=== PATIENT | female | born 1960 | race Caucasian/White ===

== ENCOUNTER 2017-07-29 14:27 | Emergency (ER) | payer OTHER | END 2017-07-29 15:43 | disposition left against medical advice (07) | LOC: M ED 14:27 | DX: K08.89 Other specified disorders of teeth and supporting structures (principal); Z53.21 Procedure and treatment not carried out due to patient leaving prior to being seen by health care provider ==

== ENCOUNTER → 2018-02-15 | Outpatient (CLI) | payer OTHER ==
[~2018-02-15] MED LIST: ISOVUE-370 76% 100ML VIAL (Q9967) As Ordered
[2018-02-15 11:44] LABS: APPEARANCE, URINE CLEAR (CLEAR); BACTERIA, URINE AUTO NEGATIVE (NEGATIVE); BILIRUBIN, URINE AUTO NEGATIVE (NEGATIVE); BLOOD, URINE BLOOD NEGATIVE (NEGATIVE); COLOR, URINE YELLOW (YELLOW); GLUCOSE, URINE (UA) AUTO NEGATIVE (NEGATIVE); KETONE, URINE AUTO NEGATIVE (NEGATIVE); LEUKOCYTE ESTERASE, URINE AUTO NEGATIVE (NEGATIVE); NITRITE, URINE AUTO NEGATIVE (NEGATIVE); PROTEIN, URINE AUTO NEGATIVE (NEGATIVE); RBC, URINE AUTO 0 /HPF (0-3); SPECIFIC GRAVITY URINE AUTO 1.015 (1.002-1.035); SQUAMOUS EPITHELIAL CELL UR AU 0 /HPF (0-6); UROBILINOGEN, URINE AUTO 0.2 mg/dL (0.0-2.0); WBC, URINE AUTO 0 /HPF (0-3)
[2018-02-15 11:50] LABS: BASO % 0.5 % (0.0-1.0); EOS # 0.2 10^3/uL (0.0-0.50); EOS % 2.3 % (0.0-3.0); HEMATOCRIT 46.3 % (36.0-47.0); HEMOGLOBIN 15.1 g/dl (12.0-15.5); IMMATURE GRANULOCYTE % 0.4 % (0-3.0); LYMPH # 2.3 10^3/uL (1.5-4.5); LYMPH % 29.1 % (24.0-44.0); MEAN CORPUSCULAR HEMOGLOBIN 31.7 pg (27.0-33.0); MEAN CORPUSCULAR HGB CONC 32.6 g/dl (32.0-36.5); MEAN CORPUSCULAR VOLUME 97.1 fl (80.0-96.0); MONO # 0.7 10^3/uL (0.0-0.8); MONO % 8.4 % (0.0-5.0); NEUTROPHILS # 4.6 10^3/uL (1.8-7.7); NEUTROPHILS % 59.3 % (36.0-66.0); PLATELET COUNT, AUTOMATED 279 10^3/uL (150-450); RED BLOOD COUNT 4.77 10^6/uL (4.00-5.40); RED CELL DISTRIBUTION WIDTH 13.4 % (11.5-14.5); WHITE BLOOD COUNT 7.7 10^3/uL (4.0-10.0)
[2018-02-15 12:20] LABS: ALBUMIN 3.5 GM/DL (3.2-5.2); ALBUMIN/GLOBULIN RATIO 1.06 (1.00-1.93); ALKALINE PHOSPHATASE 78 U/L (45-117); ALT/SGPT 13 U/L (12-78); ANION GAP 6 MEQ/L (8-16); AST/SGOT 17 U/L (7-37); BILIRUBIN,TOTAL 0.3 MG/DL (0.2-1.0); BLOOD UREA NITROGEN 12 MG/DL (7-18); CALCIUM LEVEL 8.9 MG/DL (8.5-10.1); CARBON DIOXIDE LEVEL 30 MEQ/L (21-32); CHLORIDE LEVEL 106 MEQ/L (98-107); CHOLESTEROL LEVEL 233 MG/DL (<200); CHOLESTEROL RISK RATIO 3.819 (<5); CREATININE FOR GFR 0.78 MG/DL (0.55-1.30); FOLATE 13.3 NG/ML; FREE T4 0.81 NG/DL (0.76-1.46); GLOMERULAR FILTRATION RATE > 60.0 (>51); GLUCOSE, FASTING 79 MG/DL (70-100); HDL CHOLESTEROL 61 MG/DL (>40); LDL CHOLESTEROL 144 MG/DL (<100); NON-HDL-C 172 MG/DL; SODIUM LEVEL 142 MEQ/L (136-145); TOTAL PROTEIN 6.8 GM/DL (6.4-8.2); TRIGLYCERIDES LEVEL 138 MG/DL (<150)
== END ==
LOC: M RAD 10:06
DX: R91.1 Solitary pulmonary nodule (principal)
CPT/HCPCS: Q9967

== ENCOUNTER → 2018-02-23 | Outpatient (REF) | payer OTHER ==
[2018-02-23 14:10] LABS: FOLATE 10.9 NG/ML; RHEUMATOID FACTOR QUANT < 10.0 IU/ML (<15.0); VITAMIN B12 LEVEL 799 PG/ML
[2018-02-23 15:36] LABS: ERYTHROCYTE SEDIMENTATION RATE 8 mm/hr (0-30)
[2018-03-01 00:06] LABS: ANTINUCLEAR ANTIBODIES DIRECT Negative (Negative); VITAMIN B1 LEVEL WHOLE BLOOD 131.9 nmol/L (66.5-200.0); VITAMIN B6,PYRIDOXAL PHOSPHATE 7.6 ug/L (2.0-32.8); VITAMIN E(ALPHA TOCOPHEROL) 11.7 mg/L (7.0-25.1); VITAMIN E(GAMMA TOCOPHEROL) 1.9 mg/L (0.5-5.5)
== END ==
LOC: M LABNEURO 09:57
DX: R41.3 Other amnesia (principal)
CPT/HCPCS: 82746

== ENCOUNTER → 2018-02-23 | Outpatient (REF) | payer OTHER | LOC: M LAB REF 10:14 | DX: J43.9 Emphysema, unspecified (principal); R91.1 Solitary pulmonary nodule; J44.9 Chronic obstructive pulmonary disease, unspecified; F17.210 Nicotine dependence, cigarettes, uncomplicated; G31.84 Mild cognitive impairment of uncertain or unknown etiology ==

== ENCOUNTER → 2018-04-25 | Outpatient (REF) | payer OTHER ==
[~2018-04-25] MED LIST changes: +COMBAER6; +INCR1INH; -ISOVUE-370 76% 100ML VIAL (Q9967) As Ordered; +VENTAER
== END ==
LOC: M SFHCLERA 10:58
PROVIDERS: ATTEND Nurse Practitioner Family
DX: J02.9 Acute pharyngitis, unspecified (principal)

== ENCOUNTER → 2018-04-28 | Outpatient (CLI) | payer OTHER ==
--- NOTE | 2018-04-28 13:19 | REP ---
CAROTID DUPLEX ULTRASOUND: 04/28/2018. Clinical history: TIA. Findings: Standard duplex techniques utilized. There is some soft and mixed plaque in the right carotid bulb with some minor soft plaque and intimal thickening in the common and internal carotid as well as the external carotid. Similarly some soft plaque in the left external carotid with soft and mixed plaque at the bulb and into the left ICA. Peak velocity: CCA systolic: Right 1.0 M/S, left 0.83 M/S ICA systolic: Right 0.85 M/S left 1.10 M/S ICA diastolic: Right 0.42 M/S left 0.51 M/S ECA systolic: Right 0.87 M/S left 1.20 M/S ICA/CCA ratio: Right 0.42 left 0.62. There is cranial direction of flow in both vertebral arteries. No significant spectral broadening or filling in of the systolic window for either internal carotid artery. There is some irregular mixed plaque in the left bulb compared to the right bulb with less mixed plaque. Impression: 1. Bilateral mild carotid disease with mixed plaque bulb, left greater than right, but without hemodynamically significant or flow restricting lesion (less than 50% stenosis). 2. Cranial directional flow of the vertebral arteries bilaterally. Electronically Signed by Lino Pina MD 04/28/2018 04:57 P
== END ==
LOC: M RAD 09:31
PROVIDERS: ATTEND Psychiatry & Neurology Neurology
DX: G45.9 Transient cerebral ischemic attack, unspecified (principal)

== ENCOUNTER → 2018-05-05 | Outpatient (CLI) | payer OTHER ==
--- NOTE | 2018-05-05 13:27 | REPMRS ---
Patient History The patient states she had a clinical breast exam in 04/2018. Patient is postmenopausal. No known family history of cancer. Benign FNA biopsy of the right breast, November 04, 2008. Digital Woman Screen Mammo: May 05, 2018 - Exam #: [id number] Bilateral CC and MLO view(s) were taken. Technologist: Windy Carvalho, Technologist Prior study comparison: March 07, 2015, digital woman screen mammo performed at [facility]. January 11, 2014, digital woman screen mammo performed at [facility]. August 01, 2012, digital woman screen mammo performed at [facility] to [facility]. FINDINGS: There are scattered fibroglandular densities. There is a moderate amount of residual fibroglandular tissue which is fairly symmetric. There is no interval development of dominant mass, architectural distortion, or clustered microcalcification typical of malignancy. There has been no change in the appearance of the mammogram from the prior studies. 3-D tomosynthesis shows no additional findings. Assessment: BI-RADS/ACR category 1 mammogram. Negative. Recommendation Routine screening mammogram of both breasts in 1 year (for women over age 40). This patient's Lifetime Breast Cancer RIsk is estimated at 6.1 %. This mammogram was interpreted with the aid of an FDA-approved computer-aided dectection system. Electronically Signed By: Hood Walls MD 05/05/18 [id number]
== END ==
LOC: M WHC 09:43
PROVIDERS: ATTEND Nurse Practitioner Women's Health
DX: Z12.31 Encounter for screening mammogram for malignant neoplasm of breast (principal); Z78.0 Asymptomatic menopausal state; Z86.018 Personal history of other benign neoplasm

== ENCOUNTER → 2018-05-05 | Outpatient (REF) | payer OTHER ==
[2018-05-09 15:26] LABS: HPV HYBRID CAPTURE II Negative (Negative)
== END ==
LOC: M SFHCWAGY 09:44
PROVIDERS: ATTEND Nurse Practitioner Women's Health
DX: Z12.4 Encounter for screening for malignant neoplasm of cervix (principal)

== ENCOUNTER 2018-06-19 10:50 | Emergency (ER) | payer OTHER ==
[~2018-06-19] VITALS: Ht 175.3 cm; Wt 72.7 kg
[2018-06-19] MEDS ORDERED: NS 1,000 ML IV ONE (11:15)
[2018-06-19] MEDS ORDERED: ACETAMINOPHEN TAB 650MG DOSE (2X325MG) PO ONE (11:15)
[2018-06-19 11:34] LABS: BASO # 0.1 10^3/uL (0.0-0.2); BASO % 0.3 % (0.0-1.0); EOS % 0.2 % (0.0-3.0); HEMATOCRIT 37.7 % (36.0-47.0); HEMOGLOBIN 12.7 g/dl (12.0-15.5); LYMPH # 1.7 10^3/uL (1.5-4.5); LYMPH % 10.8 % (24.0-44.0); MEAN CORPUSCULAR HEMOGLOBIN 31.1 pg (27.0-33.0); MEAN CORPUSCULAR HGB CONC 33.7 g/dl (32.0-36.5); MEAN CORPUSCULAR VOLUME 92.2 fl (80.0-96.0); MONO # 1.2 10^3/uL (0.0-0.8); MONO % 7.8 % (0.0-5.0); NEUTROPHILS # 12.8 10^3/uL (1.8-7.7); NEUTROPHILS % 80.5 % (36.0-66.0); PLATELET COUNT, AUTOMATED 500 10^3/uL (150-450); RED BLOOD COUNT 4.09 10^6/uL (4.00-5.40); WHITE BLOOD COUNT 15.9 10^3/uL (4.0-10.0)
[2018-06-19] MEDS ORDERED: MOXIFLOXACIN HCL 400 MG in APPROPRIATE DILUENT 1 EA IV ONE (11:45)
[2018-06-19] MEDS ORDERED: methylPREDNISolone INJ 40 MG/1 ML VIAL (J2920) IV ONE (11:45)
--- NOTE | 2018-06-19 11:47 | REP ---
CHEST PORTABLE: AP portable view of the chest is performed and compared to a prior CT study of 02/15/2018. Peripheral consolidative infiltrate is seen in the left lung base. Right lung demonstrates no infiltrate. The heart is normal in size. There is calcification of the thoracic aorta. The mediastinal silhouette is unremarkable. IMPRESSION: Left basilar consolidative infiltrate. Electronically Signed by Albert Singer MD 06/19/2018 05:41 P
[2018-06-19 11:51] LABS: INFLUENZA A AMPLIFICATION NEGATIVE (NEGATIVE); INFLUENZA B AMPLIFICATION NEGATIVE (NEGATIVE)
[2018-06-19 12:10] LABS: BLOOD UREA NITROGEN 9 MG/DL (7-18); CALCIUM LEVEL 8.8 MG/DL (8.5-10.1); CARBON DIOXIDE LEVEL 28 MEQ/L (21-32); CHLORIDE LEVEL 98 MEQ/L (98-107); CK-MB VALUE MASS < 1.0 NG/ML (<3.6); CPK CREATINE PHOSPHOKINASE 31 U/L (26-192); CREATININE FOR GFR 0.75 MG/DL (0.55-1.30); GLOMERULAR FILTRATION RATE > 60.0 (>51); GLUCOSE, FASTING 172 MG/DL (70-100); MB/CK RELATIVE INDEX 3.23 (< OR =4); POTASSIUM SERUM 3.7 MEQ/L (3.5-5.1); SODIUM LEVEL 133 MEQ/L (136-145); TROPONIN I < 0.02 NG/ML (< 0.10)
[2018-06-19] MEDS ORDERED: PRED50TA PO (13:09)
[2018-06-19] MEDS ORDERED: MOXI1TAB PO (13:09)
[2018-06-19 14:16] VITALS: BP 107/72
--- NOTE | 2018-06-19 19:51 | ECGEPIP ---
Stationary ECG Study [facility] - ED Test Date: 2018-06-19 Pat Name: MARCY REGALADO Department: Room: - Gender: F Applied Exercise Physiologist: [email or web address] : 1960 Requested By: Vinay Soriano Order Number: [id number] Reading MD: Vinay Soriano Measurements Intervals Crescent Rate: 106 P: 78 GA: 126 QRS: 67 QRSD: 85 T: 76 QT: 314 QTc: 419 Interpretive Statements SINUS TACHYCARDIA MINIMAL VOLTAGE CRITERIA FOR LVH, CONSIDER NORMAL VARIANT ABNORMAL RHYTHM ECG NONSPECIFIC ST T WAVE CHANGES NO OLD ECG FOR COMPARISON Electronically Signed On 06-19-2018 19:51:21 EST by Vinay Soriano
== END 2018-06-19 14:22 | disposition home or self-care (01) ==
LOC: M ED 10:50
DX: J18.9 Pneumonia, unspecified organism (principal); J45.901 Unspecified asthma with (acute) exacerbation; R00.0 Tachycardia, unspecified; J44.9 Chronic obstructive pulmonary disease, unspecified; F17.210 Nicotine dependence, cigarettes, uncomplicated
CPT/HCPCS: 36415; 71045; 80048; 82550; 82553; 83605; 85025; 87502; 93005; 93041; 94760; 96374; 96375; 99285; J2280; J2920

== ENCOUNTER → 2018-08-07 | Outpatient (CLI) | payer OTHER ==
[~2018-08-07] MED LIST changes: +MOXI1TAB PO; +PRED50TA PO
--- NOTE | 2018-08-07 14:30 | REP ---
CHEST X-RAY: Three views. HISTORY: Recovering from pneumonia. Comparison study June 19, 2097. FINDINGS: There is some residual consolidation in the left lower lobe, much improved when compared with the June 19, 2018 study although not completely resolved. No new infiltrate is seen. The lungs are hyperinflated. Pleural angles are sharp. Heart size is normal. The aorta is calcific. IMPRESSION: Significantly improved although not resolved left upper lobe infiltrate. COPD. Electronically Signed by Ozzie Walls MD 08/07/2018 03:17 P
== END ==
LOC: M LRY 10:26
PROVIDERS: ATTEND Physician Assistant
DX: R04.2 Hemoptysis (principal)

== ENCOUNTER 2018-08-29 08:37 | Emergency (ER) | payer OTHER ==
[~2018-08-29] VITALS: Ht 175.3 cm; Wt 75.0 kg
--- NOTE | 2018-08-29 09:34 | REP ---
Chest two views HISTORY: Cough Comparison: 08/07/2018 Patchy density is present in the left lower lobe consistent with an infiltrate that is decreased compared to the previous study. The right lung is clear. The heart is normal in size. The pulmonary vasculature is normal in appearance. The bony structure is intact. IMPRESSION: Left lower lobe infiltrate decreased compared to the previous study. Electronically Signed by Leo Roldan MD 08/29/2018 09:25 A
[2018-08-29] MEDS ORDERED: IPRATROPIUM 0.5MG/ALBUTEROL 2.5MG INH SOL UD 3ML (DUONEB)(J7620) NEB ONE (10:45)
[2018-08-29] MEDS ORDERED: methylPREDNISolone INJ 125 MG/2 ML VIAL (J2930) IV ONE (10:45)
[2018-08-29] MEDS ORDERED: NS 1,000 ML IV ONE (10:45)
[2018-08-29 11:02] LABS: BASO % 0.3 % (0.0-1.0); EOS % 0.4 % (0.0-3.0); HEMATOCRIT 46.6 % (36.0-47.0); HEMOGLOBIN 15.5 g/dl (12.0-15.5); LYMPH # 2.3 10^3/uL (1.5-4.5); LYMPH % 21.1 % (24.0-44.0); MEAN CORPUSCULAR HEMOGLOBIN 31.1 pg (27.0-33.0); MEAN CORPUSCULAR HGB CONC 33.3 g/dl (32.0-36.5); MEAN CORPUSCULAR VOLUME 93.6 fl (80.0-96.0); MONO # 1.2 10^3/uL (0.0-0.8); MONO % 11.4 % (0.0-5.0); NEUTROPHILS # 7.3 10^3/uL (1.8-7.7); NEUTROPHILS % 66.5 % (36.0-66.0); PLATELET COUNT, AUTOMATED 309 10^3/uL (150-450); RED BLOOD COUNT 4.98 10^6/uL (4.00-5.40); WHITE BLOOD COUNT 10.9 10^3/uL (4.0-10.0)
--- NOTE | 2018-08-29 11:46 | REP ---
CT chest without contrast: History: Persistent pneumonia. Comparison chest CT study February 15, 2018. Comparison low-dose chest CT February 22, [address] November 19, 2015 are also reviewed. Comparison is made with today's chest x-ray. CT findings: There is some residual subsegmental discoid atelectasis in the anterior basal segment of the left lower lobe. There is soft tissue fullness in the left inferior hilus and there is segmental bronchial occlusion associated with this nodular opacity in the infrahilar region. This measures 2.6 cm in greatest diameter. A neoplastic nodule must be suspected here in the left inferior hilus. There is a 6 mm pulmonary nodule in the left lower lobe lateral to this on page 60 of 116 in series 201 of today's study. These are new findings. No other pulmonary nodule is appreciated. There are mild emphysematous changes in the lung apices unchanged. There are new lymph nodes in the mediastinum just above the left mainstem bronchus and in the left precarinal region. These each measure 1.3 cm in greatest diameter. They were not present previously. There is a normal sized AP window region lymph node only 5 mm in short axis dimension. No adrenal lesion is seen. Visualized upper abdominal structures are unremarkable. No bony destructive lesion is seen. Impression: Findings suspicious for a 2.6 cm primary bronchogenic lung malignancy in the left infrahilar region with bronchial obstruction and gradually resolving post obstructive pneumonia. There are two suspicious new lymph nodes in the mediastinum at the level of the christopher. There is a 6 mm pulmonary nodule in the left lower lobe as well. Consider PET/CT scanning and histologic sampling. Electronically Signed by Ozzie Walls MD 08/29/2018 05:22 P
[2018-08-29 11:57] LABS: ALBUMIN 4.1 GM/DL (3.2-5.2); ALT/SGPT 14 U/L (12-78); BILIRUBIN,DIRECT 0.2 MG/DL (0.0-0.2); BILIRUBIN,TOTAL 0.6 MG/DL (0.2-1.0); BLOOD UREA NITROGEN 13 MG/DL (7-18); CALCIUM LEVEL 9.9 MG/DL (8.5-10.1); CARBON DIOXIDE LEVEL 30 MEQ/L (21-32); CHLORIDE LEVEL 100 MEQ/L (98-107); GLOMERULAR FILTRATION RATE > 60.0 (>51); GLUCOSE, FASTING 73 MG/DL (70-100); POTASSIUM SERUM 4.4 MEQ/L (3.5-5.1); SODIUM LEVEL 135 MEQ/L (136-145); TOTAL PROTEIN 7.5 GM/DL (6.4-8.2)
[2018-08-29] MEDS ORDERED: LEVA750T7 PO (12:35)
[2018-08-29 12:55] VITALS: BP 140/97
[2018-09-01] MEDS ORDERED: PRED10TA2 PO (14:58)
[2018-09-01] MEDS ORDERED: ANOR1AER INH (14:58)
[2018-09-01] MEDS ORDERED: MOTR200T44 PO (14:58)
== END 2018-08-29 12:57 | disposition home or self-care (01) ==
LOC: M ED 08:37
DX: J18.1 Lobar pneumonia, unspecified organism (principal); R91.1 Solitary pulmonary nodule; J98.09 Other diseases of bronchus, not elsewhere classified; J44.9 Chronic obstructive pulmonary disease, unspecified; B19.20 Unspecified viral hepatitis C without hepatic coma; Z79.899 Other long term (current) drug therapy; F17.210 Nicotine dependence, cigarettes, uncomplicated
CPT/HCPCS: 36415; 71046; 71250; 80048; 80076; 83605; 85025; 87070; 87205; 94640; 96361; 96374; 99284; J2930

== ENCOUNTER 2018-09-07 07:46 | Day surgery (SDC) | payer OTHER ==
[~2018-09-07] VITALS: Ht 176.5 cm; Wt 74.8 kg
[~2018-09-07 07:46] MED LIST changes: +ANOR1AER INH; +LEVA750T7 PO; +LR 1,000 ML IV SCH; +MOTR200T44 PO; +PRED10TA2 PO
[2018-09-07] MEDS ORDERED: LIDOCAINE 1% SDV INJ 30 ML VIAL As Ordered ONE (09:08)
[2018-09-07] MEDS ORDERED: LIDOCAINE VISCOUS 2% SOLN 15ML UDC As Ordered ONE (09:08)
[2018-09-07] MEDS ORDERED: THROMBIN SOLN 20,000 UNITS KIT As Ordered ONE (09:08)
[2018-09-07] MEDS ORDERED: EPINEPHrine 1MG/ML INJ 30ML MD-VIAL As Ordered ONE (09:09)
[2018-09-07] MEDS ORDERED: THROMBIN SOLN 5,000 UNITS VIAL As Ordered ONE (09:12)
[2018-09-07] MEDS ORDERED: CETACAINE SPRAY 5GM As Ordered ONE (09:18)
[2018-09-07] MEDS ORDERED: SUGAMMADEX SODIUM 500 MG/5 ML VIAL (BRIDION) As Ordered ONE (09:50)
[2018-09-07] MEDS ORDERED: PROPOFOL 200 MG/20 ML VIAL As Ordered ONE (09:50)
[2018-09-07] MEDS ORDERED: fentaNYL 100 MCG/2 ML INJECTION (J3010) As Ordered ONE (09:50)
[2018-09-07] MEDS ORDERED: LIDOCAINE 2% INJ 100 MG/5 ML SDV (FOR ANES.) As Ordered ONE (09:50)
[2018-09-07] MEDS ORDERED: ONDANSETRON 4MG/2ML VIAL (J2405) As Ordered ONE (09:50)
[2018-09-07] MEDS ORDERED: dexameTHASONE 4 MG/ML 1ML VIAL (J1100) As Ordered ONE (09:50)
[2018-09-07] MEDS ORDERED: ROCURONIUM BROMIDE 50 MG/5 ML VIAL As Ordered ONE (09:50)
[2018-09-07] MEDS ORDERED: PHENYLephrine HCL 500 MCG/5 ML (100MCG/ML) SYRINGE (J2370) As Ordered ONE (09:50)
[2018-09-07] MEDS ORDERED: MIDAZOLAM INJ 2 MG/2 ML VIAL (J2250) As Ordered ONE (09:50)
[2018-09-07] MEDS ORDERED: IPRATROPIUM 0.5MG/ALBUTEROL 2.5MG INH SOL UD 3ML (DUONEB)(J7620) As Ordered ONE (10:41)
--- NOTE | 2018-09-07 10:57 | REP ---
Clinical: Dyspnea. Rule out pneumonia . Comparison: 08/29/2018 . Findings: The mediastinum and cardiac silhouette are stable and within normal limits for portable technique. The lung mora are clear without acute consolidation, effusion, or pneumothorax. Skeletal structures are intact. Impression: No acute cardiopulmonary process appreciated. Electronically Signed by Toi Oleary MD 09/07/2018 10:46 A
[2018-09-07] MEDS ORDERED: PERCOCET 5MG/325MG TAB PO PRN (11:00)
[2018-09-07] MEDS ORDERED: ONDANSETRON 4MG/2ML VIAL (J2405) IV PRN (11:00)
[2018-09-07] MEDS ORDERED: LR 1,000 ML IV SCH (11:00)
[2018-09-07] MEDS ORDERED: IPRATROPIUM 0.5MG/ALBUTEROL 2.5MG INH SOL UD 3ML (DUONEB)(J7620) INH ONE (11:00)
[2018-09-07] MEDS ORDERED: fentaNYL 100 MCG/2 ML INJECTION (J3010) IV PRN (11:00)
[2018-09-07] MEDS ORDERED: guaiFENesin DM LIQ 10ML UD PO ONE (11:00)
--- NOTE | 2018-09-07 11:21 | ROOR ---
Patient Name: Serina Smith Procedure Date: 09/07/2018 9:21 AM Date of : 1960 Admit Type: Outpatient Age: 58 Room: Main OR Note Status: Finalized Attending MD: Sandra Montemayor MD Procedure: Bronchoscopy Indications: Abnormal CT scan of chest, Mediastinal adenopathy, Paratracheal adenopathy Providers: Sandra Montemayor MD (Doctor) Referring MD: Sang Edwards DO (Referring MD) Requesting Physician: Medicines: General Anesthesia, Cetacaine topical Complications: No immediate complications. Estimated blood loss: Minimal Procedure: Pre-Anesthesia Assessment: - Prior to the procedure, a History and Physical was performed, and patient medications and allergies were reviewed. The patient's tolerance of previous anesthesia was also reviewed. The risks and benefits of the procedure and the sedation options and risks were discussed with the patient. All questions were answered, and informed consent was obtained. Prior Anticoagulants: The patient has taken no previous anticoagulant or antiplatelet agents. ASA Grade Assessment: III - A patient with severe systemic disease. After reviewing the risks and benefits, the patient was deemed in satisfactory condition to undergo the procedure. The Bronchoscope was introduced through the mouth, via the endotracheal tube (the patient was intubated for the procedure) and advanced to the tracheobronchial tree of both lungs. The procedure was accomplished without difficulty. The patient tolerated the procedure well. Findings: Respiratory tract: The trachea is of normal caliber. The christopher is sharp. The entire tracheobronchial tree was examined to at least the first subsegmental level. Bronchial mucosa and anatomy are normal; there was some scant yellow mucous in left bronchial tree. There were no endobronchial lesions or secretions in right bronchial tree. There were pedraza vascular endobronchial lesions occluding the anterior medial segment of the left lower lobe and in the lateral basal segment of the left lower lobe. These lesions were friable. Washings were obtained in the left lower lobe and sent for cell count, bacterial culture, and fungal & AFB analysis and cytology. The return was blood-tinged. Brushings of an endobronchial lesion were obtained in the anterior medial segment of the left lower lobe with a cytology brush and sent for routine cytology. Endobronchial biopsies of the lesions were performed in the anterior medial segment and lateral basal segment of the left lower lobe using a forceps and sent for routine cytology. An endobronchial ultrasound endoscope was utilized in order to assist with fine needle aspiration in the subcarinal area. Transbronchial needle aspirations of a lymph node were performed in the subcarinal area using an Olympus EBUS-TBNA 21 gauge needle and sent for routine cytology. The procedure was guided by ultrasound. Endobronchial ultrasound survellaince did not show any right hilar lymphadenopathy. The right paratracheal (4R) lymph nodes were visualized, they were not enlarged and one had fat containing benign appearance. The left paratracheal (4L) lymph node was visualized and significantly enlarged, however it was not sampled as there was adequate specimen by cytopathologist KOSTA for the subcarinal lymph node. Estimated blood loss: minimal. Impression: - Abnormal CT scan of chest - Mediastinal adenopathy - Paratracheal adenopathy - Washings were obtained. - Brushings were obtained. - An endobronchial biopsy was performed. - Endobronchial ultrasound was performed. - A transbronchial needle aspiration was performed. Recommendation: - Await test results. - Follow up with bronchoscopist as previously scheduled. Attending Participation: I personally performed the entire procedure. Sandra Montemayor MD 09/07/2018 11:21:12 AM Number of Addenda: 0 Note Initiated On: 09/07/2018 9:21 AM
[2018-09-07 12:02] VITALS: BP 129/71
== END 2018-09-07 12:29 | disposition home or self-care (01) ==
LOC: M SDC 07:46
PROVIDERS: ATTEND Internal Medicine Pulmonary Disease
DX: C34.32 Malignant neoplasm of lower lobe, left bronchus or lung (principal); C77.1 Secondary and unspecified malignant neoplasm of intrathoracic lymph nodes; R59.0 Localized enlarged lymph nodes; F17.210 Nicotine dependence, cigarettes, uncomplicated; J34.2 Deviated nasal septum; B18.2 Chronic viral hepatitis C; Z79.82 Long term (current) use of aspirin; Z79.51 Long term (current) use of inhaled steroids; Z79.899 Other long term (current) drug therapy
CPT/HCPCS: 31623; 31629; 31652; 71045; 87070; 87205; 88104; 88173; 88305; 88313; J1100; J2250; J2370; J2405; J3010

== ENCOUNTER → 2018-09-19 | Outpatient (CLI) | payer OTHER ==
[~2018-09-19] MED LIST changes: +ACET-683 PO; +ALBU83IN NEB; -LR 1,000 ML IV SCH; +VENTAER INH
--- NOTE | 2018-09-19 13:50 | RADONC ---
RADIATION ONCOLOGY NEW PATIENT CONSULTATION DATE: 09/19/2018 DIAGNOSIS: Extensive small cell carcinoma, left lower lobe with mediastinal involvement and a small satellite nodule in the left lower lung. STAGE: Presumably stage [id number] (extensive). Group IIIB ICD-10 CODE: C 34.92. ECOG PERFORMANCE: 0. CHART NUMBER: [id number] HISTORY OF PRESENT ILLNESS: The patient is a very nice 58-year-old female who, since June this year, started complaining of an increased cough associated with some fevers and chills. The patient had a great deal of mucus and underwent a chest x-ray, which revealed an opacity in the left lower lung. Her sputum samples consisted of primarily leukocytes and were consistent with a clinical diagnosis of pneumonia. She was treated with antibiotics for several weeks, as well as steroids and had significant improvement of symptoms until July of this year. She was admitted again for symptoms resembling that of pneumonia and was initiated on a different antibiotic, Dicloxacillin with a transient significant improvement of her symptoms. When her symptoms nonetheless had returned in August of this year, the patient underwent further diagnostic evaluations, including a CT scan. The CT scan confirmed the presence of a left lower lobe mass and within this study a 2.6 cm left infrahilar region was noted with some bronchial obstruction. The findings were consistent with a primary bronchogenic carcinoma with two new suspicious lymph nodes within the mediastinum at the level of the christopher. There was a 6 mm pulmonary nodule in the left lower lobe as well. These findings were consistent with dissemination of a primary lung cancer. On September 07, the patient was taken for bronchoscopy and biopsy. Brushings of an endobronchial lesion were obtained in the anterior segment of the left lower lobe. The transbronchial needle aspiration revealed cells consistent with small cell carcinoma. The bronchial portions also revealed tumor consistent with a small cell carcinoma. In light of these findings, the patient was referred to both medical oncology and to radiation oncology. She has already seen Dr. Christine Priest, who has ordered a CT scan for the patient, as well as some additional scans, and she comes to us today to discuss the eventual probable role of radiation in the management of her cancer. PAST MEDICAL HEALTH: She has a history of emphysema, which has been documented. She also has a history of hepatitis C, alcohol dependence, tobacco dependence, lumbar spine surgery, appendectomy, LEEP surgery, D and C. CURRENT MEDICATIONS: - nicotine patch - albuterol 25 mg per 3 mL q.i.d. ALLERGIES: NO KNOWN DRUG ALLERGIES. SMOKING HISTORY: She has a history of smoking 1.5 packs per day for the last 40 years and she continues to smoke. FAMILY HISTORY: Cancer in maternal grandmother with colon cancer and grandfather with lung cancer. 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 LABORATORY DATA AND X-RAY FINDINGS: CT scan obtained reveals atelectasis in the left lower lung with an area of consolidation and left inferior hilar fullness. There was segmental bronchial occlusion and a new 6 mm nodule in the left lower lung. Also two additional lymph nodes were seen in the mediastinum at the level of the hilum. REVIEW OF SYSTEMS: The patient denies any nausea, vomiting but has experienced some weight loss and feels fatigue. She has difficulty catching her breath at times even with moderate exertion. The patient denies chronic headaches, nausea, vomiting, orbital pain, tinnitus, throat pain, difficulty swallowing or pain upon swallowing. PULMONARY: She is quite short of breath with modest exertion. She has a history of coughing and of a lesion in her left lung, which resulted in obstructive pneumonias. She has a longer history of smoking with subsequent emphysema and has symptoms secondary to her emphysema. CARDIOVASCULAR: Denies palpitations, rhythmic irregularities, chest pain. She experiences some dyspnea on exertion, most likely secondary to her emphysema. She also experiences general fatigue and occasional minor chest pain. She has had two episodes of hemoptysis most recently. ABDOMINAL: Denies general abdominal pain. She has a fair to good appetite and eats three flynn meals per day. She denies nausea, vomiting, jaundice, abdominal distension, ascites. GYNECOLOGIC: She denies any pelvic pain, dysfunctional uterine bleeding, vaginal discharge. EXTREMITIES: Denies cyanosis, clubbing or edema. NEUROLOGIC EXAMINATION: Denies significant depression, although she does claim that she is having a difficult time coping with the recent diagnosis. She denies suicidal thoughts. EXAMINATION FINDINGS: Vitals: Weight 163, height 5 feet 6 inches, respirations 20, pulse 82, temperature 98.7, BP 150/90, O2 saturation 98%. HEENT: Normocephalic. EOMs intact. PERRLA. Fundi benign. Lymphatics: No palpable peripheral lymphadenopathy is appreciated in the cervical, supraclavicular, axillary or inguinal lymph node chains. Lungs: Distant to auscultation to absent in the left lower lung. Hyperresonant to percussion. Heart: Regular without murmurs. Abdomen: Without evidence of hepatomegaly, masses, deep abdominal tenderness. Extremities: Without cyanosis, clubbing or edema. Neurologic: Examination physiologic and nonfocal. IMPRESSION: Clinically extensive small cell carcinoma of the lung [id number]. PLAN OF RADIOTHERAPY: Dr. Priest has already ordered a PET scan for the patient, and the patient can be appropriately staged after completion and evaluation of her scan results. Plan of radiotherapy, most likely the patient will benefit from adjuvant radiotherapy along with chemotherapy. We would recommend a local regional radiotherapy to the tumor primary and lymphatic drainage sites. Prior to treatment delivery, localization will be accomplished upon our CT simulator and treatment portals defined by the use of multiple leaf collimators. Indications, possible side effects, as well as alternatives to radiotherapy have been explained in detail to the patient. She understands and is willing to proceed with the outlined treatment plan above. Thank you for referring this very jeannette lady to us and allowing us the opportunity of participation in her overall management. cc: MD Ben Forrester MD MTDD
== END ==
LOC: M ONCR 08:39
PROVIDERS: ATTEND Radiology Radiation Oncology
DX: C34.90 Malignant neoplasm of unspecified part of unspecified bronchus or lung (principal)

== ENCOUNTER → 2018-09-27 | Outpatient (CLI) | payer OTHER ==
[~2018-09-27] MED LIST changes: +ATIV1TAB7 PO; +TRAM50TA2 PO
--- NOTE | 2018-09-27 18:20 | REP ---
PET/CT: History: Staging small cell lung carcinoma. Comparisons: Comparison CT scan is from August 29, 2018. TECHNIQUE: 50 minutes following the intravenous injection of a 9.33 mCi dose of F-18 FDG, three-dimensional PET scintigraphy is acquired from the skull base to the proximal thighs. Triplanar noncontrast CT scanning is acquired through the same anatomic range for attenuation correction, and image registration with scan parameters optimized to minimize radiation exposure to the patient. PET scintigraphy and CT datasets were fused and displayed on a workstation with multiplanar and projection display capability. PET/CT Findings: There is hypermetabolic uptake in the known left infrahilar pulmonary nodule. Maximum standard uptake value within this is 9.16. There is hypermetabolic jose c uptake in the left inferior hilus, left superior hilus, subcarinal lymph node chain, left salma-carinal lymph nodes, and in a small paraesophageal lymph node at the level of the transverse aorta. Maximum standard uptake value in this jose c uptake pattern ranges between 4.15 and 10.53. No abnormal adrenal uptake is seen. Head and neck soft tissues are unremarkable. No abnormal abdominal or pelvic hypermetabolic uptake is appreciated. Impression: There is hypermetabolic uptake in the left lower lobe, left hilus, and in multiple areas in the mediastinum. Electronically Signed by Ozzie Walls MD 09/27/2018 08:43 P
== END ==
LOC: M PLARAD 14:32
PROVIDERS: ATTEND Internal Medicine Medical Oncology
DX: C34.32 Malignant neoplasm of lower lobe, left bronchus or lung (principal)
CPT/HCPCS: 78815; A9552

== ENCOUNTER → 2018-09-29 | Outpatient (CLI) | payer OTHER ==
[~2018-09-29] MED LIST changes: +BUPIVACAINE HCL 0.5% 10 ML VIAL As Ordered ONE; +DEXA4TA PO; +LIDO2.5C15 TOP; +LIDOCAINE 2% MDV 20 ML VIAL As Ordered ONE; +MIDAZOLAM INJ 2 MG/2 ML VIAL (J2250) As Ordered ONE; +OLAN10TA2 PO; +ONDA8TAB7 PO; +PROC10TA4 PO; +ceFAZolin 1GM INJ (J0690 PER 500MG) As Ordered ONE; +fentaNYL 100 MCG/2 ML INJECTION (J3010) As Ordered ONE
--- NOTE | 2018-10-25 14:52 | REPIR ---
DATE OF PROCEDURE: 09/29/2018 ATTENDING SURGEON: Dr. Joselyn Verdin LOGGING SUPERINTENDENT: Karin Olivera and Gretchen Padilla PREOPERATIVE DIAGNOSES: Lung cancer, hepatitis C, alcohol abuse, tobacco use. POSTOPERATIVE DIAGNOSES: Lung cancer, hepatitis C, alcohol abuse, tobacco use. PROCEDURE: Ultrasound fluoroscopic guided 26.5 cm tunneled central venous catheter with subcutaneous port using a Bard PowerPort INDICATION: The patient is a 58-year-old female who requires access for chemotherapy and will undergo placement of a Port-A-Cath. ANESTHESIA: Local with 20 mL of 2% lidocaine mixed 0.5% Marcaine. FLUORO TIME: 0.2 minutes. CONTRAST: None. COMPLICATIONS: None. DRAINS: None. SPECIMENS: None. PROCEDURE The patient was taken to the angiography suite, placed supine on the angiography table and then prepped and draped in a standard surgical fashion. Ultrasound was used to guide cannulation of the right internal jugular vein. The port was placed in a pocket in the right chest and the catheter was tunneled in place with the tip in the superior vena cava right atrial junction. The port was aspirated and noted to aspirate easily and then flushed heparinized saline. The incisions were closed using 3-0 Monocryl in inverted interrupted fashion. Steri-Strips and dressings were applied. The patient tolerated the procedure well. All instrument, sponge and needle counts were correct at the end of the case. There were no complications. Dr. Verdin was present for and directed the entire case. The patient was transferred to the holding area and subsequently discharged in stable condition.
== END ==
LOC: M IRPRO 11:44
PROVIDERS: ATTEND Internal Medicine Medical Oncology
DX: C34.32 Malignant neoplasm of lower lobe, left bronchus or lung (principal); B18.2 Chronic viral hepatitis C; J34.2 Deviated nasal septum; F10.20 Alcohol dependence, uncomplicated; F17.218 Nicotine dependence, cigarettes, with other nicotine-induced disorders
CPT/HCPCS: 36563; 76937; C1788; C1894; J0690

== ENCOUNTER → 2018-10-02 | Outpatient (CLI) | payer OTHER ==
[~2018-10-02] MED LIST changes: -BUPIVACAINE HCL 0.5% 10 ML VIAL As Ordered ONE; -DEXA4TA PO; -LIDO2.5C15 TOP; -LIDOCAINE 2% MDV 20 ML VIAL As Ordered ONE; -MIDAZOLAM INJ 2 MG/2 ML VIAL (J2250) As Ordered ONE; -OLAN10TA2 PO; -ONDA8TAB7 PO; -PROC10TA4 PO; +PROHANCE 279.3MG/ML 15ML VIAL (A9576) As Ordered ONE; -ceFAZolin 1GM INJ (J0690 PER 500MG) As Ordered ONE; -fentaNYL 100 MCG/2 ML INJECTION (J3010) As Ordered ONE
--- NOTE | 2018-10-03 08:39 | REP ---
MRI brain without contrast followed by with contrast: History: Recent diagnosis small cell lung carcinoma. No comparison brain imaging. Comparison PET CT study September 27, 2018. Technique: Axial and sagittal imaging planes are utilized for T1 and T2-weighted scans. Sequences include spin-echo, fast spin echo, FLAIR, and diffusion weighted sequences. Gadolinium enhancement dose is 14 ml of intravenous ProHance. MRI findings: No bony calvarial lesion is appreciated. There is no MR evidence of significant paranasal sinus disease. No intraorbital abnormality is seen. Craniocervical junction and upper cervical cord are normal in appearance. Diffusion weighted scans show no evidence of restricted diffusion to suggest acute ischemia. FLAIR and turbo spin echo T2-weighted scans demonstrate multiple areas of subcortical and periventricular T2 hyperintensity in the frontal and parietal lobes and occipital lobes bilaterally consistent with small vessel atherosclerotic changes. There is no evidence of intracranial mass lesion. No infarct or hemorrhage is seen. Postcontrast images demonstrate enhancement in normal vessels. No abnormal gadolinium enhancement is appreciated. Impression: Small vessel changes. There is no evidence to suggest intracranial metastatic disease. Electronically Signed by Ozzie Walls MD 10/03/2018 12:15 P
== END ==
LOC: M RAD 16:52
PROVIDERS: ATTEND Internal Medicine Medical Oncology
DX: C34.90 Malignant neoplasm of unspecified part of unspecified bronchus or lung (principal)
CPT/HCPCS: 70553; A9576

== ENCOUNTER 2018-10-13 11:00 | Outpatient (RCR) | payer OTHER ==
--- NOTE | 2018-09-24 10:52 | RADONC ---
RADIATION ONCOLOGY SIMULATION NOTE: DATE: 09/22/2018 CHART NUMBER: [id number]. DIAGNOSIS: Small cell carcinoma of the lung. STAGE: Extensive. ECOG PERFORMANCE STATUS: 0 SIMULATION NOTE: The patient was brought into the simulation room where upon an immobilization device was fabricated for day-to-day treatment accuracy. She tolerated the immobilization device quite well with no significant untoward side effects. Thereafter, images were collected at [address] simulator. These images were taken through the entire thorax and will be used for future contouring of both the tumor volume as well as the immediate surrounding critical adjacent structures. I was there during the entire course of the simulation. The simulation process was tolerated quite well by the patient with no untoward events. cc: Christine Priest MD
--- NOTE | 2018-10-03 10:17 | RADONC ---
RADIATION ONCOLOGY PROGRESS NOTE DATE: 10/02/2018 CHART NUMBER: [id number] Ms. Smith was initially seen by Dr. Veliz and consultation was done following her CT scan but before her PET scan was undertaken. At the time of consultation, due to a pulmonary nodule, Dr. Veliz staged her as having an extensive stage small-cell lung carcinoma. When I returned; however, the PET scan had been completed and the small nodule, although quite small to leaf size picker hypermetabolic activity, was not hypermetabolic. Although this does not rule out the possibility of disease there, I have staged her as having a limited stage small-cell lung carcinoma giving her the benefit of doubt on this issue. The PET scan showed hypermetabolic uptake throughout the mediastinum and hilar regions but not in that nodule. Therefore, all disease could be incorporated easily within a radiation field and I am treating her as a patient with limited stage small-cell lung carcinoma.
--- NOTE | 2018-10-10 12:54 | RADONC ---
RADIATION ONCOLOGY PROGRESS NOTE DATE: 10/09/2018 CHART NUMBER: [id number] Ms. Smith, with a diagnosis of lung cancer, is currently receiving local regional radiotherapy, and she has achieved a dose thus far of 540 cGy of an anticipated 4000 cGy to the involved lung area. She seems to be tolerating her radiotherapy reasonably well. REVIEW OF SYSTEMS: She specifically denies any nausea, vomiting, coughing, sputum production or hemoptysis. Her energy level is such that she is able to maintain most of her day-to-day activities, but the use of concomitant chemotherapy and radiotherapy is very fatiguing to her. Skin irritation is denied. EXAMINATION FINDINGS The patient's skin within the irradiated volume shows no evidence of erythema and certainly no focal desquamation. Lymphatics: No palpable peripheral lymphadenopathy is appreciated. Lungs are distant bilaterally and hyperresonant to percussion. The remainder of the physical examination is unchanged. IMPRESSION: Tolerating therapy well. PLAN: Treatments to continue.
[~2018-10-13 11:00] MED LIST changes: +DEXA4TA PO; +LIDO2.5C15 TOP; +OLAN10TA2 PO; +ONDA8TAB7 PO; +PROC10TA4 PO; -PROHANCE 279.3MG/ML 15ML VIAL (A9576) As Ordered ONE
== END 2018-10-15 ==
LOC: M ONCR 11:00
PROVIDERS: ATTEND Radiology Radiation Oncology
DX: C34.32 Malignant neoplasm of lower lobe, left bronchus or lung (principal)

== ENCOUNTER 2018-11-13 08:56 | Emergency (ER) | payer OTHER ==
[~2018-11-13] VITALS: Ht 177.8 cm; Wt 71.4 kg
[2018-11-13] MEDS ORDERED: BENA2CRE3 TOP (09:50)
[2018-11-13] MEDS ORDERED: KEFL500C17 PO (09:50)
[2018-11-13 09:52] VITALS: BP 123/71
== END 2018-11-13 09:55 | disposition home or self-care (01) ==
LOC: M ED 08:56
DX: L73.9 Follicular disorder, unspecified (principal); J44.9 Chronic obstructive pulmonary disease, unspecified; B19.20 Unspecified viral hepatitis C without hepatic coma; Z79.899 Other long term (current) drug therapy; F17.210 Nicotine dependence, cigarettes, uncomplicated

== ENCOUNTER → 2018-11-15 | Outpatient (RCR) | payer OTHER ==
--- NOTE | 2018-10-16 16:41 | RADONC ---
RADIATION ONCOLOGY PROGRESS NOTE DATE OF SERVICE: 10/16/2018 CHART NUMBER: [id number] Ms. Smith with a diagnosis of a lung cancer is currently receiving local regional radiotherapy and her dose to date is 1440 cGy of a total dose of 3780 cGy. Thus far, she is tolerating her treatments relatively well with no specific complaints referable to her disease or to her treatments. She will be considered for boost after the completion of the aforementioned prescribed dose. REVIEW OF SYSTEMS: She denies any nausea, vomiting, coughing, sputum production or hemoptysis. Her energy level is diminished and she is able to still maintain many day-to-day activities without any alteration of her lifestyle. Skin irritation is not a major issue for her. She also denies odynophagia, dysphagia. EXAMINATION FINDINGS: Skin within the irradiated volume shows only a minimal erythematous blush with no focal desquamation. There is no palpable peripheral lymphadenopathy. Lungs are clear but distant. The remainder of the physical examination is unchanged. IMPRESSION: Tolerating therapy well. PLAN: Treatments to continue. MTDD
--- NOTE | 2018-10-23 11:59 | RADONC ---
RADIATION ONCOLOGY PROGRESS NOTE DATE: 10/23/2018 CHART NUMBER: [id number] Ms. Smith is a very is presently at a dose of 1980 cGy to her left lung and is tolerating treatments quite well at this point with no complaints related to her radiation therapy. She is having no increased difficulty breathing or swallowing. REVIEW OF SYSTEMS: The patient's review of systems is noncontributory. She denies nausea, vomiting, fevers, chills, night sweats, diplopia, headaches, anxiety or depression, anorexia, weight loss, visual disturbances, chest pain, urinary or bowel difficulties, bone pain, or neurological problems. PHYSICAL EXAMINATION: The patient's skin is in good condition with no evidence of radiation change present. There is no moist or dry desquamation. The remainder of her physical exam remains unchanged. Ms. Smith is tolerating treatments quite well and radiation will continue as scheduled.
--- NOTE | 2018-10-31 08:37 | RADONC ---
RADIATION ONCOLOGY PROGRESS NOTE DATE: 10/30/2018 CHART NUMBER: [id number] Ms. Smith is presently at a dose of 2880 cGy to her left lung and overall is tolerating her treatments fairly well. She does have some discomfort upon swallowing. Other than her discomfort with swallowing, review of systems is largely noncontributory. Denies nausea, vomiting, fevers, chills, night sweats, diplopia, headaches, anxiety or depression, anorexia, weight loss, visual disturbances, chest pain, urinary or bowel difficulties, bone pain, or neurological problems. PHYSICAL EXAMINATION The patient's skin is in good condition with no evidence of moist or dry desquamation. The remainder of her physical exam remains largely unchanged. Ms. Smith is tolerating treatments quite well and radiation will continue as scheduled.
--- NOTE | 2018-11-08 08:45 | RADONC ---
RADIATION ONCOLOGY PROGRESS NOTE DATE: 11/06/2018 CHART #: [id number] Ms. Smith is presently at a dose of 3780 cGy to her left lung and is tolerating treatments quite well at this point with no significant difficulties related to her radiation therapy. She is having no increased shortness of breath or significant difficulty swallowing. REVIEW OF SYSTEMS: The patient's review of systems is noncontributory. Denies nausea, vomiting, fevers, chills, night sweats, diplopia, headaches, anxiety or depression, anorexia, weight loss, visual disturbances, chest pain, urinary or bowel difficulties, bone pain, or neurological problems. PHYSICAL EXAMINATION: The patient's skin is in good condition with no evidence of radiation change present. There is no moist or dry desquamation. The remainder of her physical exam remains unchanged. Ms. Smith is tolerating treatments quite well and radiation will continue as scheduled.
--- NOTE | 2018-11-14 09:59 | RADONC ---
RADIATION ONCOLOGY PROGRESS NOTE DATE: 11/13/2018 CHART #: [id number] Ms. Smith is presently at a dose of 4680 cGy to her left lung and mediastinum and is tolerating treatments quite well at this point with no significant difficulties related to her radiation therapy other than some difficulty swallowing. Her breathing remains stable. REVIEW OF SYSTEMS: The patient's review of systems is largely noncontributory. Denies nausea, vomiting, fevers, chills, night sweats, diplopia, headaches, anxiety or depression, anorexia, weight loss, visual disturbances, chest pain, urinary or bowel difficulties, bone pain, or neurological problems. PHYSICAL EXAMINATION: The patient's skin is in good condition with no evidence of moist or dry desquamation. The remainder of her physical exam remains unchanged. Ms. Arroyo is presently at a dose of 4680 cGy and will continue her radiation as scheduled. Thus far, have done planning for a dose of 5220 cGy. We had hoped on delivering a somewhat higher dose to bring her to 6000 centigrade, however, the amount of the lung in her radiated field is prohibitive. Her pulmonary functions are quite limited with an FEV1 of 1.3. In order to incorporate all areas of known disease in the mediastinal region and left lung, I believe we may pass tolerance if we continue with radiation. In light of the fact that this patient has extensive disease already and is continuing with her systemic therapy at this point, we are planning on completing radiation at 5220 cGy. Prior to a final decision, further planning is being undertaken.
[~2018-11-15] MED LIST changes: +ACET500T15 PO; +ALB2.5NEB INH; +BENA2CRE3 TOP; +COMBAER6 INH; +DECA4TAB PO; +FLUC10TA PO; +IBUP200C25 PO; +KEFL500C17 PO; +LEVO750T13 PO; +ONDA8TAB10 PO; -ONDA8TAB7 PO
== END ==
LOC: M ONCR 10-16 11:02
PROVIDERS: ATTEND Radiology Radiation Oncology
DX: C34.32 Malignant neoplasm of lower lobe, left bronchus or lung (principal)

== ENCOUNTER 2018-11-16 10:54 | Outpatient (RCR) | payer OTHER ==
[~2018-11-16 10:54] MED LIST changes: -ACET500T15 PO; -ALB2.5NEB INH; -COMBAER6 INH; -DECA4TAB PO; -FLUC10TA PO; -IBUP200C25 PO; -LEVO750T13 PO
--- NOTE | 2018-11-18 08:14 | RADONC ---
RADIATION ONCOLOGY TREATMENT SUMMARY DATE: 11/16/2018 CHART NUMBER: [id number] DIAGNOSIS: Extensive stage small-cell lung carcinoma. ECOG PERFORMANCE STATUS: 0 TREATMENT SUMMARY: Ms. Smith is a very pleasant 58-year-old white female with the diagnosis of extensive stage small-cell lung carcinoma who presented to us for consideration of thoracic consolidative radiation therapy. We treated the patient to her left lung for a total dose of 5220 cGy delivered in 29 fractions of 180 cGy each over 41 elapsed days from 10/05/2018 through 11/16/2018. The patient's lung was treated on a linear accelerator utilizing a 15 MV photon beam via 3D conformal technique. We initially treated via anterior posterior parallel opposed mora and subsequently went to oblique mora in order to maintain the spinal cord and other structures within their tolerance limits. Ms. Smith tolerated her treatments quite well with no significant difficulties related to her radiation therapy. She was able to complete therapy as prescribed without interruption. We had initially hoped on being able to deliver a slightly higher dose, but due to the constraints of the normal lung we realized it was safer to stop radiation at the present time. In light of the fact that this is extensive disease and the patient has had a significant dose of systemic therapy, I think we have a reasonable all likelihood of achieving local control at this point. I have scheduled the patient to see me again in 1 month for further followup. She will also continue to be followed by her other physicians as well. cc: MD Ben Forrester MD
[2018-11-21] MEDS ORDERED: KEFL500C17 PO (10:13)
[2018-12-12] MEDS ORDERED: LEVO750T13 PO (08:40)
[2018-12-12] MEDS ORDERED: DEXA4TA PO (09:05)
[2019-04-09] MEDS ORDERED: DECA4TAB PO (11:41)
[2019-04-16] MEDS ORDERED: DECA4TAB PO (07:47)
== END 2018-12-16 ==
LOC: M ONCR 10:54
PROVIDERS: ATTEND Radiology Radiation Oncology
DX: C34.92 Malignant neoplasm of unspecified part of left bronchus or lung (principal)

== ENCOUNTER → 2018-12-07 | Outpatient (CLI) | payer OTHER ==
[~2018-12-07] MED LIST changes: +ISOVUE-370 76% 100ML VIAL (Q9967) As Ordered ONE; +LEVO750T13 PO; -ONDA8TAB10 PO; +ONDA8TAB7 PO
--- NOTE | 2018-12-07 12:57 | REP ---
REASON: History of small cell lung carcinoma. CONTRAST: 100 mL Isovue 370. All prior chest CTs were reviewed, the latest noncontrast enhanced CT obtained as part of PET/CT 09/27/2018. Latest standard CT of the chest 08/29/2018. The PET/CT of 09/27/2018 showed hypermetabolic activity in the left lung lower lobe, left hilum, and mediastinum. There is no evidence of mediastinal or hilar adenopathy. Adenopathy seen on the prior chest CT of 09/27/2018 and the latest prior standard chest CT of 08/19/2018 has resolved. Nonenlarged lymph nodes are present. There are no pleural or pericardial effusions. The imaged upper abdomen is within normal limits. The imaged osseous structures are unchanged. Evaluation of the lung mora shows marked improvement in the abdominal left infrahilar nodule. Significant improvement has developed in the tiny nodular densities in the anterior basal segment of the left lower lobe and the band-like opacities seen on that latest prior examination has resolved. There are new abnormal nodules, masses, or opacities. The tip of the central venous catheter is seen in the superior vena cava. Emphysematous changes are again seen throughout the lung mora status quo. IMPRESSION: Improvement as described above. Electronically Signed by Taj Reyes DO 12/07/2018 01:17 P
== END ==
LOC: M RAD 11:01
PROVIDERS: ATTEND Nurse Practitioner Family
DX: C34.90 Malignant neoplasm of unspecified part of unspecified bronchus or lung (principal); Z92.21 Personal history of antineoplastic chemotherapy
CPT/HCPCS: 71260; Q9967

== ENCOUNTER → 2018-12-20 | Outpatient (CLI) | payer OTHER ==
[~2018-12-20] MED LIST changes: -ISOVUE-370 76% 100ML VIAL (Q9967) As Ordered ONE
--- NOTE | 2018-12-21 10:05 | RADONC ---
RADIATION ONCOLOGY FOLLOWUP NOTE DATE: 12/20/2018 CHART #: [id number] DIAGNOSIS: Extensive small cell carcinoma, left lower lobe with mediastinal involvement and a small satellite nodule in the left lower lung. STAGE: [id number] (extensive). ECOG PERFORMANCE STATUS: 0. Mrs. Smith with a diagnosis of extensive small cell carcinoma of the lung returns today for followup visit. She is continuing to do well and denies any significant nausea, vomiting, exacerbation of coughing, sputum production or hemoptysis. Unfortunately, she does continue to smoke. Her energy level is diminished, but she is still able to maintain many day-to-day activities without any alteration of her lifestyle. Skin irritation is denied as is odynophagia, dysphagia or recent weight loss. I believe the patient is still receiving chemotherapy. EXAMINATION FINDINGS: The skin within the irradiated volume shows neither erythema nor desquamation. Lymphatics: No palpable peripheral lymphadenopathy is appreciated. Lungs are distant bilaterally, but clear. Heart: Regular without murmurs. Abdomen: Without evidence of hepatomegaly, masses or deep abdominal tenderness. Extremities: Without cyanosis, significant digital clubbing or edema. Neurologic Examination: Physiologic. IMPRESSION: Doing well status post completion of her external beam radiotherapy with ongoing chemotherapy. PLAN: Would like to see her on a p.r.n. basis and she was advised to return to her referring physicians as per their directions and instructions. cc: MD Ben Forrester MD
== END ==
LOC: M ONCR 09:34
PROVIDERS: ATTEND Radiology Radiation Oncology
DX: C34.92 Malignant neoplasm of unspecified part of left bronchus or lung (principal)

== ENCOUNTER → 2019-01-09 | Outpatient (CLI) | payer OTHER ==
[~2019-01-09] MED LIST changes: +ACET500T15 PO; +ALB2.5NEB INH; +COMBAER6 INH; +EMLA CREAM 5GM (LIDOCAINE/PRILOCAINE) As Ordered ONE; +GASTROGRAFIN SOLUTION 30ML (Q9963) As Ordered ONE; +IBUP200C25 PO; +ISOVUE-370 76% 100ML VIAL (Q9967) As Ordered ONE
--- NOTE | 2019-01-09 14:51 | REP ---
CT of the chest with IV contrast, CT pulmonary angiography for shortness of breath after chemotherapy: Comparison is a 2018. There are no emboli in the pulmonary trunk or central pulmonary arteries. There are no emboli in the pulmonary lobe or segment branches. There is a focal band-like parenchymal density in the anterior segment of the left lower lobe paralleling the major fissure, unchanged. There is a subtle ground-glass density at the inferior tip of the lingula, unchanged. There is a subtle ground-glass density inferomedially in the right upper lobe as an interval change. There are no pleural effusions. There is no mediastinal or hilar adenopathy as previously. No axillary adenopathy. There is an Uoctjn-S-Edcz catheter on the right, unchanged. The thoracic aorta is unremarkable. Cardiac size is normal. There is no pericardial effusion. The visualized upper abdominal contents are unremarkable. Impression: There are no pulmonary emboli. There are subtle ground-glass lung parenchymal densities as described. No adenopathy. Hhyaeu-Q-[id number] catheter on the right. Electronically Signed by Albert Alex MD 01/09/2019 02:43 P
--- NOTE | 2019-01-09 14:58 | REP ---
CT of the abdomen and pelvis with IV and oral contrast: The studies performed contiguously with the chest CT performed this same date. Comparison is 09/26/2008. The small subcapsular cyst anteriorly in the left lobe of the liver is unchanged. The hepatic parenchyma is otherwise. The gallbladder, pancreas, spleen, adrenals, kidneys and abdominal aorta are unchanged and unremarkable. There is no periaortic adenopathy or mass. There is no bowel distension or obstruction. There is mild wall thickening of the sigmoid colon, nonspecific but could be colitis in the appropriate clinical setting. The bowel is otherwise unremarkable. There is no ascites. Pelvis: The uterus and adnexa are unremarkable. The bladder is unremarkable. The there is no pelvic adenopathy or free fluid. Impression: Wall thickening of the sigmoid colon compatible with colitis in the appropriate clinical setting. No ascites or adenopathy. No bowel distension or obstruction. Tiny hepatic left lobe cyst, unchanged. Electronically Signed by Albert Alex MD 01/09/2019 02:50 P
== END ==
LOC: M RAD 12:05
PROVIDERS: ATTEND Internal Medicine Medical Oncology
DX: R06.02 Shortness of breath (principal); C34.90 Malignant neoplasm of unspecified part of unspecified bronchus or lung
CPT/HCPCS: 71275; 74177; Q9963; Q9967

== ENCOUNTER → 2019-01-12 | Outpatient (CLI) | payer OTHER ==
[~2019-01-12] MED LIST changes: -EMLA CREAM 5GM (LIDOCAINE/PRILOCAINE) As Ordered ONE; -GASTROGRAFIN SOLUTION 30ML (Q9963) As Ordered ONE; -ISOVUE-370 76% 100ML VIAL (Q9967) As Ordered ONE; +PROHANCE 279.3MG/ML 15ML VIAL (A9576) As Ordered ONE
--- NOTE | 2019-01-13 10:04 | REPVR ---
PROCEDURE INFORMATION: Exam: MR Head Without and With Contrast Exam date and time: 01/12/2019 5:52 PM Clinical history: 58 years old, female; Condition or disease; Cancer; Metastatic or secondary malignancy of brain; Primary cancer: Lung; Additional info: Restaging lung CA TECHNIQUE: Imaging protocol: MR of the head without and with intravenous contrast. Contrast material: PROHANCE; Contrast volume: 13 ml; Contrast route: IV; COMPARISON: MRI-Brain W/O FOLL BY WITH 10/02/2018 5:17 PM FINDINGS: Brain: There are multiple small foci of restricted diffusion within both cerebral hemispheres. No enhancement is identified in any of these areas. Therefore, these may represent acute/subacute embolic infarcts. There is no acute intracranial hemorrhage, cerebral edema, or midline shift. Age-related cerebral and cerebellar substance loss is present. Scattered increased T2 and FLAIR signal within the periventricular and subcortical white matter is present. This is nonspecific but likely related to chronic microangiopathic ischemic change. No enhancing lesions were identified after the administration of contrast. Ventricles: Normal. No ventriculomegaly. Bones/joints: Unremarkable. Soft tissues: Unremarkable. Sinuses: Normal as visualized. No acute sinusitis. Mastoid air cells: Normal as visualized. No mastoid effusion. Orbits: Unremarkable. IMPRESSION: 1. Multiple small foci of restricted diffusion are noted within both cerebral hemispheres. No enhancement is identified in any of these areas. Therefore, these may represent acute/subacute embolic infarcts. No definite enhancing metastases. 2. Chronic findings as discussed above. Electronically signed by: Tez Farias On 01/12/2019 19:05:53 PM
== END ==
LOC: M RAD 16:58
PROVIDERS: ATTEND Internal Medicine Medical Oncology
DX: C34.90 Malignant neoplasm of unspecified part of unspecified bronchus or lung (principal)
CPT/HCPCS: 70553; A9576

== ENCOUNTER 2019-01-13 09:59 | Inpatient (IN) | payer OTHER ==
[~2019-01-13] VITALS: Ht 175.3 cm; Wt 66.8 kg
[~2019-01-13 09:59] MED LIST changes: -ACET500T15 PO; -ALB2.5NEB INH; -COMBAER6 INH; +EMLA CREAM 5GM (LIDOCAINE/PRILOCAINE) TOP SCH; -IBUP200C25 PO; -PROHANCE 279.3MG/ML 15ML VIAL (A9576) As Ordered ONE
[2019-01-13] MEDS ORDERED: methylPREDNISolone INJ 125 MG/2 ML VIAL (J2930) IV ONE (10:30)
[2019-01-13] MEDS ORDERED: IPRATROPIUM 0.5MG/ALBUTEROL 2.5MG INH SOL UD 3ML (DUONEB)(J7620) NEB ONE (10:30)
[2019-01-13] MEDS ORDERED: ALBUTEROL SULFATE 2.5 MG/0.5 ML INH NEB SOLN INH ONE (10:30)
[2019-01-13 11:00] LABS: BASO # 0.1 10^3/uL (0.0-0.2); BASO % 0.5 % (0.0-1.0); EOS # 0.1 10^3/uL (0.0-0.5); EOS % 0.9 % (0.0-3.0); HEMOGLOBIN 11.2 g/dl (12.0-15.5); LYMPH # 0.5 10^3/uL (1.5-5.0); LYMPH % 4.7 % (24.0-44.0); MEAN CORPUSCULAR HEMOGLOBIN 34.8 pg (27.0-33.0); MEAN CORPUSCULAR HGB CONC 32.9 g/dl (32.0-36.5); MEAN CORPUSCULAR VOLUME 105.6 fl (80.0-96.0); MONO # 1.7 10^3/uL (0.0-0.8); MONO % 17.8 % (0.0-5.0); NEUTROPHILS # 7.3 10^3/uL (1.5-8.5); NEUTROPHILS % 75.5 % (36.0-66.0); PLATELET COUNT, AUTOMATED 347 10^3/uL (150-450); RED BLOOD COUNT 3.22 10^6/uL (4.00-5.40); WHITE BLOOD COUNT 9.6 10^3/uL (4.0-10.0)
[2019-01-13] MEDS ORDERED: NS 1,000 ML IV ONE (11:00)
[2019-01-13] MEDS ORDERED: IBUP200C25 PO (11:30)
[2019-01-13] MEDS ORDERED: ACET500T15 PO (11:30)
[2019-01-13] MEDS ORDERED: ALB2.5NEB INH (11:30)
[2019-01-13] MEDS ORDERED: COMBAER6 INH (11:30)
[2019-01-13] MEDS ORDERED: VENTAER INH (11:30)
[2019-01-13 11:31] LABS: ALBUMIN 3.4 GM/DL (3.2-5.2); ALT/SGPT 11 U/L (12-78); BILIRUBIN,DIRECT < 0.1 MG/DL (0.0-0.2); BILIRUBIN,TOTAL 0.3 MG/DL (0.2-1.0); BLOOD UREA NITROGEN 13 MG/DL (7-18); CARBON DIOXIDE LEVEL 29 MEQ/L (21-32); CHLORIDE LEVEL 100 MEQ/L (98-107); CK-MB VALUE MASS 1.3 NG/ML (<3.6); CPK CREATINE PHOSPHOKINASE 37 U/L (26-192); CREATININE FOR GFR 0.64 MG/DL (0.55-1.30); GLOMERULAR FILTRATION RATE > 60.0 (>51); GLUCOSE, FASTING 93 MG/DL (70-100); MB/CK RELATIVE INDEX 3.51 (< OR =4); NT-PRO BNP 427 PG/ML (<125); POTASSIUM SERUM 4.1 MEQ/L (3.5-5.1); SODIUM LEVEL 136 MEQ/L (136-145); THYROXINE (T4) 9.2 UG/DL (4.5-12.0); TOTAL PROTEIN 7.2 GM/DL (6.4-8.2); TROPONIN I < 0.02 NG/ML (< 0.10)
[2019-01-13] MEDS ORDERED: ISOVUE-370 76% 100ML VIAL (Q9967) As Ordered ONE (11:43)
[2019-01-13] MEDS ORDERED: LIDOCAINE 2% 5ML JELLY UROJET TOP ONE (11:45)
--- NOTE | 2019-01-13 12:08 | REP ---
AP PORTABLE CHEST: 01/13/2019. Comparison: CT angiogram chest 01/09/2019, portable chest 09/07/2018. Clinical history: Dyspnea. There is an Rladgz-V-Qqem catheter with a right jugular line terminating in the region of the SVC junction with the right atrium. This is unchanged. Lungs are hyperinflated. There is some linear fiber ectatic change in the bases, left greater than right. No pleural effusion, lateral pleural thickening apical scarring or pneumothorax. The aorta is calcified at the arch. Airway intact bony thorax shows no acute compression fracture or destructive lesion. Impression: 1. Indwelling jugular port catheter with tip in SVC near junction with the right atrium unchanged. 2. Some underlying COPD and fibrotic change with some subsegmental linear fibrotic change in the base, left greater than right. No dense consolidation, effusion or parenchymal mass. 3. No cardiomegaly or edema. Tortuous calcified aorta, unchanged. Electronically Signed by Lino Pina MD 01/13/2019 07:36 P
[2019-01-13] MEDS ORDERED: OLANZapine 10 MG TAB PO PRN (13:30)
[2019-01-13] MEDS ORDERED: ACETAMINOPHEN TAB 650MG DOSE (2X325MG) PO PRN (13:30)
[2019-01-13] MEDS ORDERED: MOM 30ML SUSPENSION UDC PO PRN (13:30)
[2019-01-13] MEDS ORDERED: ONDANSETRON 4 MG TAB (S0181) PO PRN (13:30)
--- NOTE | 2019-01-13 14:01 | REP ---
CT ANGIOGRAM CHEST: 01/13/2019. Comparison: 01/09/2019. Clinical history: Dyspnea. Limited stage small cell lung carcinoma. No emboli on the study 4 days ago. Technique: Bolus 75 ml Isovue [address] pulmonary angiogram protocol with coronal and sagittal reconstructions and standard and MIP reformats. Findings: The lung mora are well inflated. There is no pleural thickening, pleural-based mass, acute infiltrate or effusion. There is curvilinear fiber atelectatic change abutting the posterior margin major fissure in the left lower lobe unchanged. Some fiber atelectatic change in the inferior lingular segment at the anterior left lung is also seen and unchanged. I suspect some mild cervical bronchiectatic changes present. A few tiny scattered parenchymal nodules 2-3 mm in size. Emphysematous changes and central lobular emphysema seen. Minor apical pleural scarring bilaterally, unchanged. Heart not enlarged. The aorta is calcified at the arch but without aneurysm or dissection. The main, right and left pulmonary arteries and the mediastinum are without filling defect. Lobar, segmental and visible subsegmental arteries were all grossly intact. None of these show vessel cut off or definite thrombus. No pathologic sized mediastinal or hilar adenopathy. No axillary, supraclavicular mass. Tracheal airway intact. Bone windows show the sternum, manubrium, medial clavicles, visualized portions of scapulae and humeral heads, ribs and spine without focal lesion or destructive findings. Schmorl's nodes at multiple endplates. Marginal osteophytes are present dextrorotatory curve lower thoracic and upper lumbar region. Upper poles of the kidneys show no mass. Only a small portion of pancreatic tail included was unremarkable. Adrenal glands normal. No splenomegaly or hepatomegaly is suggested. Impression: 1. There is no CT evidence of pulmonary thromboembolism. 2. There is no aortic aneurysm or dissection. 3. There are some scattered 2 to 3 mm nodules in the chest. If the patient is high risk for malignancy, a follow-up scan in one year would be recommended. 4. Some curvilinear fibro atelectatic change left base unchanged. No new or acute finding elsewhere. Electronically Signed by Lino Pina MD 01/13/2019 07:41 P
[2019-01-13] MEDS: LevoFLOXacin 750 MG TABLET PO SCH (15:36)
--- NOTE | 2019-01-13 15:38 | HPEPDOC ---
[facility] Medical History & Physical Date of Admission Jan 13, 2019 Date of Service: Jan 13, 2019 Attending Physician: LUIS ANTONIO ANTONIO MD History and Physical CHIEF COMPLAINT: Shortness of breath HISTORY OF PRESENT ILLNESS: Patient is a 58-year-old female who presented to the [facility] emergency department with complaint of shortness of breath. She states that in August 2018. She was diagnosed with a left lung small cell lung cancer. She has subsequently received both chemotherapy and radiation therapy and finished her last round in October 2018. Patient states that she has always had chronic shortness of breath, however, this has recently worsened. He states that on April 10, she had developed shortness of breath that was worse at her baseline. At the time the patient felt that it may go away. However, throughout the week. The shortness of breath persisted and progressi vely worsened. Last night, 01/12/2019, the patient developed significant shortness of breath to the point where she was unable to walk even a few feet. Patient states that when she walks short distances on flat level ground. She has to stop and catch her breath, which takes a few minutes. She admits to a chronic cough with clear sputum production and denies any increased production or consistency of her sputum. She admits to chronic fatigue since her diagnosis of small cell lung cancer. She also admits to fevers and chills, which she states have been off and on for the past few months ever since starting her chemotherapy. She denies any chest pain or palpitations associated with her shortness of breath. She denies any pain on inspiration. She denies any difficulty laying flat. She does admit to occasional right leg swelling that goes down with elevation. She denies any bilateral leg swelling. She denies any symptoms of paroxysmal nocturnal dyspnea. The patient had recently received imaging on 01/09/2019 for restaging of her lung cancer. At the time her CTA demonstrated no pulmonary emboli but subtle ground- glass lung parenchymal densities. She also has an area of atelectasis/scarring in the left lower lobe that parallels the major fissure which may be consistent with her previous radiation. Additionally, she received a Brain MRI which demonstrated multiple small foci of restricted diffusion within both cerebral hemispheres. There was no enchancement in any of those regions suggesting the possibility of acute/subacute embolic infarcts. Patient had received a brain MRI in 09/2018 which did not show these new findings. At presentation to the ER the patient was hypoxic with oxygen saturations of 86% on room air. She was placed on nasal canula with 3L of oxygen and recovered to >90%. The patient was tachycardiac. She had received a nebulizer treatment in the ER with reported improvement. The patient subsequently received a CTA of her chest which was similar in findings to her CTA on 01/09/2019. Given patients persistent hypoxia and tachycardia she was admitted to hospitalist service for further evaluation and management PAST MEDICAL HISTORY: 1. Left lung Small Cell Lung cancer s/p Chemo Radiation 2. COPD w/ emphysema 3. Depression/Anxiety 4. Nicotine/tobacco abuse PAST SURGICAL HISTORY: None SOCIAL HISTORY: Patient is a current smoker. She smokes approximately 10 cigarettes a day. She admits to occasional alcohol use. She denies IV drug use or illicit drug use FAMILY HISTORY: Patient denies any family history of lung cancer or lung disease ALLERGIES: Please see below. REVIEW OF SYSTEMS: CONSTITUTIONAL: Admits to chronic off and on fever and chills. Admits to weightloss since diagnosis of lung cancer. Admits to good appetite. Denies night sweats. Admits to chronic fatigue HEENT: Denies dysphagia. Denies changes in eye sight. Denies hoarseness in voice. CARDIOVASCULAR: Denies chest pain or discomfort. Denies palpitations or feelings of the heart racing RESPIRATORY: Admits to worsening shortness of breath for the past week. Admits to chronic cough with clear sputum production. Denies hemoptysis GASTROINTESTINAL:. Denies abdominal pain, diarrhea or constipation. Denies bloody stool or dark tarry stools. Denies dysphasia or odynophagia. GENITOURINARY: Denies increased urination, dysuria or frequency. SKIN: Denies any rash or lesions. MUSCULOSKELETAL: Denies any significant muscle weakness from her baseline NEUROLOGICAL:. Doesn't change in speech. Denies any change in gait. PSYCHIATRIC: Admits to history of anxiety, depression. ENDOCRINE:. Denies heat intolerance, cold intolerance. HEMATOLOGIC/LYMPHATIC: Denies any increased bruising or bleeding. HOME MEDICATIONS: Please see below. PHYSICAL EXAMINATION: VITAL SIGNS: Temperature 95.6, pulse 122, respiratory rate 22, blood pressure 137/67, pulse oximetry 98% 3.0 on NC GENERAL APPEARANCE: Awake, alert, and oriented. Appears in no acute distress. She is sitting up in bed. She is conversive and without conversational dyspnea HEENT: Atraumatic normocephalic. eyes are nonicteric. trachea is midline. Dentition is fair. Mucous membranes are pink and moist. There are no oral ulcers or lesions. There is no palpable cervical, supraclavicular, or axillary lymphadenopathy CARDIOVASCULAR: Normal S1, S2. Tachycardic rate. Regular rhythm. No clicks rubs or murmurs. There is no JVD or carotid bruits. LUNGS: There are decreased breath sounds throughout with scattered fine crack les. There is no wheezing. Patient has prolonged expiratory phase. There is no decrease tactile fremitus. There is no egophony. No dullness to percussion. There is no accessory muscle use ABDOMEN: Soft, nondistended. Nontender to palpation in all 4 quadrants. Normoactive bowel sounds throughout. EXTREMITIES: No edema in the lower extremities. Nail beds are without clubbing or cyanosis. There are two small areas of nodular bruising on patient right foot digits 3-4. 2+ posterior tibial and radial pulses bilaterally in upper and lower extremities NEUROLOGICAL: No focal neurological deficits PSYCHIATRIC: Mood and affect appears appropriate LABORATORY DATA: See below. IMAGING: AP PORTABLE CHEST: 01/13/2019. Comparison: CT angiogram chest 01/09/2019, portable chest 09/07/2018. Clinical history: Dyspnea. There is an Gxpmqz-[id number]-[id number] catheter with a right jugular line terminating in the region of the SVC junction with the right atrium. This is unchanged. Lungs are hyperinflated. There is some linear fiber ectatic change in the bases, left greater than right. No pleural effusion, lateral pleural thickening apical scarring or pneumothorax. The aorta is calcified at the arch. Airway intact bony thorax shows no acute compression fracture or destructive lesion. Impression: 1. Indwelling jugular port catheter with tip in SVC near junction with the right atrium unchanged. 2. Some underlying COPD and fibrotic change with some subsegmental linear fibrotic change in the base, left greater than right. No dense consolidation, effusion or parenchymal mass. 3. No cardiomegaly or edema. Tortuous calcified aorta, unchanged. CT ANGIOGRAM CHEST: 01/13/2019. Comparison: 01/09/2019. Clinical history: Dyspnea. Limited stage small cell lung carcinoma. No emboli on the study 4 days ago. Technique: Bolus 75 ml Isovue [address] pulmonary angiogram protocol with coronal and sagittal reconstructions and standard and MIP reformats. Findings: The lung mora are well inflated. There is no pleural thickening, pleural-based mass, acute infiltrate or effusion. There is curvilinear fiber atelectatic change abutting the posterior margin major fissure in the left lower lobe unchanged. Some fiber atelectatic change in the inferior lingular segment at the anterior left lung is also seen and unchanged. I suspect some mild cervical bronchiectatic changes present. A few tiny scattered parenchymal nodules 2-3 mm in size. Emphysematous changes and central lobular emphysema seen. Minor apical pleural scarring bilaterally, unchanged. Heart not enlarged. The aorta is calcified at the arch but without aneurysm or dissection. The main, right and left pulmonary arteries and the mediastinum are without filling defect. Lobar, segmental and visible subsegmental arteries were all grossly intact. None of these show vessel cut off or definite thrombus. No pathologic sized mediastinal or hilar adenopathy. No axillary, supraclavicular mass. Tracheal airway intact. Bone windows show the sternum, manubrium, medial clavicles, visualized portions of scapulae and humeral heads, ribs and spine without focal lesion or destructive findings. Schmorl's nodes at multiple endplates. Marginal osteophytes are present dextrorotatory curve lower thoracic and upper lumbar region. Upper poles of the kidneys show no mass. Only a small portion of pancreatic tail included was unremarkable. Adrenal glands normal. No splenomegaly or hepatomegaly is suggested. Impression: 1. There is no CT evidence of pulmonary thromboembolism. 2. There is no aortic aneurysm or dissection. 3. There are some scattered 2 to 3 mm nodules in the chest. If the patient is high risk for malignancy, a follow-up scan in one year would be recommended. 4. Some curvilinear fibro atelectatic change left base unchanged. No new or acute finding elsewhere. MICROBIOLOGY: Please see below. ASSESSMENT: Patient is a 58 year old female who presented to the [facility] ER with complaint of shortness of breath with a history significant for small cell lung cancer of the left lung s/p radiation and chemotherapy. Patient has had CTA and Chest X-ray both of which were unrevealing. She has had a Brain MRI on 01/09/2019 which demonstrated possible acute/subacute emboli. Patient was admitted for hypoxia . PLAN: 1. Hypoxia 2/2 COPD exacerbation vs radiation pneumonitis -Patient presented with shortness of breath and hypoxia. She has received both a chest x-ray and a CTA both of which were negative for any acute findings including PE. -Given her history of radiation therapy she may have a radiation pneumonitis although unlikely. Patient will be started on 40mg IV solumederol. Will continue to monitor patients O2 -Patient has a history of COPD. Will start levoquin and duonebs. 40mg IV solumederol. Patient will continue home inhalers. 2. Possible acute/subacute embolic infarcts on Brain MRI -Patient had received a brain MRI outpatient for her lung cancer restaging. New areas of restricted diffusion were noted within the cerebral hemispheres. There is currently not a clear etiology for this. -Echocardiogram has been ordered to assess for possible cardioembolic cause. May need to follow-up with a LILIAM depending on results of echo. Carotid ultrasound has been ordered to assess for possible embolic cause. 3. DVT prophylaxis -Lovenox BID 4. Tobacco Abuse -Nicotine Patch 5. Chronic Pain -Continue patients home medications 6. GI prophylaxis -IV protonix Vital Signs Vital Signs Date Time Temp Pulse Resp B/P (MAP) Pulse Ox O2 Delivery O2 Flow Rate FiO2 01/13/19 12:00 112 22 98 Nasal Cannula 3.0 01/13/19 11:00 163/89 (113) 01/13/19 09:59 95.6 Laboratory Data Labs 24H Laboratory Tests 2 01/13/19 10:40: Immature Granulocyte % (Auto) 0.6, White Blood Count 9.6, Red Blood Count 3.22L, Hemoglobin 11.2L, Hematocrit 34.0L, Mean Corpuscular Volume 105.6H, Mean Corpuscular Hemoglobin 34.8H, Mean Corpuscular Hemoglobin Concent 32.9, Red Cell Distribution Width 16.4H, Platelet Count 347, Neutrophils (%) (Auto) 75.5H, Lymphocytes (%) (Auto) 4.7L, Monocytes (%) (Auto) 17.8H, Eosinophils (%) (Auto) 0.9, Basophils (%) (Auto) 0.5, Neutrophils # (Auto) 7.3, Lymphocytes # (Auto) 0.5L, Monocytes # (Auto) 1.7H, Eosinophils # (Auto) 0.1, Basophils # (Auto) 0.1, Nucleated Red Blood Cells % (auto) 0.0, Lactic Acid Level 0.6 01/13/19 10:41: Anion Gap 7L, Glomerular Filtration Rate > 60.0, Calcium Level 9.0, Aspartate Amino Transf (AST/SGOT) 15, Alanine Aminotransferase (ALT/SGPT) 11L, Alkaline Phosphatase 81, Total Bilirubin 0.3, Direct Bilirubin < 0.1, Total Creatine Kin ase 37, Creatine Kinase MB 1.3, Creatine Kinase MB Relative Index 3.51, Troponin I < 0.02, NL-Mhh-T-Type Natriuretic Peptide 427H, Total Protein 7.2, Albumin 3.4, Albumin/Globulin Ratio 0.89L, Thyroid Stimulating Hormone (TSH) 1.870, Thyroxine (T4) 9.2 01/13/19 11:01: POC pH (Misc Panel) 7.432, POC Base Excess (Misc Panel) 2.0, POC Saturated Percent O2 (Misc) 92L, POC pO2 (Misc Panel) 61.0L, POC pCO2 (Misc Panel) 39.9, POC HCO3 (Misc Panel) 26.6H, POC Total CO2 (Misc Panel) 28.0H 01/13/19 12:46: Urine Color YELLOW, Urine Appearance CLEAR, Urine pH 5.0, Urine Specific [place] >1.060H, Urine Protein NEGATIVE, Urine Glucose (UA) NEGATIVE, Urine Ketones 1+H, Urine Blood 1+H, Urine Nitrite NEGATIVE, Urine Bilirubin NEGATIVE, Urine Urobilinogen 0.2, Urine Leukocyte Esterase NEGATIVE, Urine WBC (Auto) 0, Urine RBC (Auto) 4H, Urine Hyaline Casts (Auto) 0, Urine Bacteria (Auto) NEGATIVE, Urine Squamous Epithelial Cells 0, Urine Mucus (Auto) SMALL, Urine Sperm (Auto) CBC/BMP Laboratory Tests 01/13/19 10:40 Red Blood Count 3.22 L, Mean Corpuscular Volume 105.6 H, Mean Corpuscular Hemoglobin 34.8 H, Mean Corpuscular Hemoglobin Concent 32.9, Red Cell Distribution Width 16.4 H, Neutrophils (%) (Auto) 75.5 H, Lymphocytes (%) (Auto) 4.7 L, Monocytes (%) (Auto) 17.8 H, Eosinophils (%) (Auto) 0.9, Basophils (%) (Auto) 0.5, Neutrophils # (Auto) 7.3, Lymphocytes # (Auto) 0.5 L, Monocytes # (Auto) 1.7 H, Eosinophils # (Auto) 0.1, Basophils # (Auto) 0.1 01/13/19 10:41 Microbiology Microbiology 01/13/19 Blood Culture, Received Pending 01/13/19 Blood Culture, Received Pending 01/13/19 Respiratory Virus Panel (PCR) ([facility]) - Final, Complete Home Medications Scheduled Diphenhydramine HCl/Zinc Acet (Benadryl Itch Stopping Crm) 28.3 Gm Cream..g., 1 APLCT TOP TID Lidocaine/Prilocaine (Lidocaine-Prilocaine Cream) 2.5%/2.5% Cream..g., 1 DOSE TOP ASDIRECTED Apply dime size to port area. Do not rub in, cover with saran wrap to protect clothing. Scheduled PRN Acetaminophen (Acetaminophen) 500 Mg Tablet, 1,000 MG PO TID PRN for PAIN Albuterol Sulfate (Albuterol Sulfate) 2.5 Mg/0.5 Ml Vial.neb, 2.5 MG INH Q4H PRN for SHORTNESS OF BREATH Albuterol Sulfate (Ventolin Hfa) 18 Gm Hfa.aer.ad, 2 PUFF INH Q4H PRN for SHORTNESS OF BREATH Ibuprofen (Ibuprofen) 200 Mg Capsule, 400 MG PO Q6H PRN for PAIN Ipratropium/Albuterol Sulfate (Combivent Respimat 20-100 Mcg) 4 Gm Mist.inhal, 1 PUFF INH QID PRN for SHORTNESS OF BREATH Olanzapine (Olanzapine) 10 Mg Tablet, 10 MG PO DAILY PRN for SEVERE NAUSEA Ondansetron HCl (Ondansetron HCl) 8 Mg Tablet, 8 MG PO Q6HP PRN for NAUSEA OR VOMITING Tramadol HCl (Tramadol HCl) 50 Mg Tablet, 1 TAB PO BIDP PRN for pain Allergies Coded Allergies: No Known Allergies (Verified , 07/29/17) A-FIB/CHADSVASC A-FIB History Current/History of A-Fib/PAF?: No GME ATTESTATION GME ATTESTATION My faculty preceptor for this patient encounter was physically present during t he encounter and was fully available. All aspects of the patient interview, examination, medical decision making process, and medical care plan development were reviewed and approved by the faculty preceptor. The faculty preceptor is aware and concurs with the plan as stated in the body of this note and will attest to such by his/her cosignature. ATTENDING NOTE Patient was seen and examined by me this morning with the residents. Agree with the above assessment and plan LATASHA HARRIS DO Jan 13, 2019 14:03 LUIS ANTONIO ANTONIO MD Jan 13, 2019 17:00
--- NOTE | 2019-01-13 19:24 | ECGEPIP ---
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
[2019-01-13] MEDS: IPRATROPIUM 0.5MG/ALBUTEROL 2.5MG INH SOL UD 3ML (DUONEB)(J7620) NEB PRN (21:00)
--- NOTE | 2019-01-13 21:08 | REPVR ---
PROCEDURE INFORMATION: Exam: US Duplex Bilateral Extracranial Arteries Exam date and time: 01/13/2019 8:13 PM Clinical history: 58 years old, female; Other: H/o cerebral emboli; Additional info: HX of cerebral emobli TECHNIQUE: Imaging protocol: Real-time Duplex ultrasound scan of the Bilateral carotid and vertebral arteries combining arreola scale, color Doppler and spectral waveform analysis. Bilateral exam. COMPARISON: MRI-Brain W/O FOLL BY WITH 01/12/2019 5:14 PM FINDINGS: Right common carotid artery: Unremarkable. No occlusion or stenosis. Waveforms are normal. Right internal carotid artery: Mild plaque in the proximal ICA.. No occlusion or significant stenosis. Waveforms are normal. Right ICA/CCA ratio: Peak systolic ratio 0.87. End diastolic ratio is 1.2 Right external carotid artery: No stenosis in the origin. Right vertebral artery: Not visualized Left common carotid artery: Unremarkable. No occlusion or stenosis. Waveforms are normal. Left internal carotid artery: Mild plaque in the proximal ICA.. No occlusion or significant stenosis. Waveforms are normal. Left ICA/CCA ratio: Peak systolic ratio is 1.1. End diastolic ratio is 1.1. Left external carotid artery: No stenosis in the origin. Left vertebral artery: Not visualized IMPRESSION: 1. Mild bilateral ICA plaque without hemodynamically significant stenosis. Normal waveforms. 2. The bilateral vertebral arteries are not visualized. COMMENT: Carotid Stenosis Reference using SRU criteria: Mild: less than 50% stenosis. ICA PSV is less than 125 cm/second and plaque or intimal thickening is visible. Moderate: 50-69% stenosis. ICA PSV is 125 to 230 cm/second and plaque is visible. Severe: 70-94% stenosis. ICA PSV is more than 230 cm/second and visible plaque and lumen narrowing are seen. Near occlusion: 95-99% stenosis. ICA PSV is variable and significant plaque and luminal narrowing are seen. Occluded: 100% stenosis. No flow identified. Electronically signed by: Jamal Orellana On 01/13/2019 21:07:50 PM
[2019-01-13 22:00] VITALS: BP 130/86
[2019-01-13] MEDS: methylPREDNISolone INJ 40 MG/1 ML VIAL (J2920) IV SCH (22:40)
[2019-01-13] MEDS: traMADol 50 MG TAB PO PRN (22:42)
[2019-01-14 01:23] VITALS: O2SAT 89
[2019-01-14 06:00] VITALS: BP 124/76
[2019-01-14] MEDS: LevoFLOXacin 750 MG TABLET PO SCH (06:12)
[2019-01-14 06:36] LABS: HEMATOCRIT 31.4 % (36.0-47.0); HEMOGLOBIN 10.4 g/dl (12.0-15.5); MEAN CORPUSCULAR HEMOGLOBIN 33.7 pg (27.0-33.0); MEAN CORPUSCULAR HGB CONC 33.1 g/dl (32.0-36.5); MEAN CORPUSCULAR VOLUME 101.6 fl (80.0-96.0); PLATELET COUNT, AUTOMATED 364 10^3/uL (150-450); RED BLOOD COUNT 3.09 10^6/uL (4.00-5.40); WHITE BLOOD COUNT 7.3 10^3/uL (4.0-10.0)
[2019-01-14 07:07] LABS: BLOOD UREA NITROGEN 14 MG/DL (7-18); CALCIUM LEVEL 9.2 MG/DL (8.5-10.1); CARBON DIOXIDE LEVEL 27 MEQ/L (21-32); CHLORIDE LEVEL 103 MEQ/L (98-107); CREATININE FOR GFR 0.62 MG/DL (0.55-1.30); GLOMERULAR FILTRATION RATE > 60.0 (>51); GLUCOSE, FASTING 132 MG/DL (70-100); POTASSIUM SERUM 4.6 MEQ/L (3.5-5.1); SODIUM LEVEL 136 MEQ/L (136-145)
[2019-01-14] MEDS: PANTOPRAZOLE 40MG TAB (PROTONIX) PO SCH (08:31)
[2019-01-14] MEDS: ENOXAPARIN 40 MG/0.4 ML SYRINGE (J1650) SC SCH (08:33)
[2019-01-14] MEDS: NICOTINE 14 MG/24 HR TRANSDERMAL TD SCH (08:35)
[2019-01-14] MEDS ORDERED: FLUBLOK(EGG FREE)(QUAD)INFLUENZA VACC 0.5ML SYRINGE (90682)18YRS&OLDER IM ONE (09:00)
--- NOTE | 2019-01-14 10:33 | IPNPDOC ---
Subjective Date Seen The patient was seen on 01/14/19. Subjective Chief Complaint/HPI Patient in no apparent distress, breathing much better now, still has some dyspnea on exertion General: Denies: ROS Unobtainable, Chills, Night Sweats, Fatigue, Malaise, Normal Appetite, Other Symptoms Constitutional: Denies: Chills, Fever, Malaise, Night Sweats, Weakness, Fatigue, Weight Loss, Lethargy, Other Eyes: Denies: Pain, Vision change, Conjunctivae inflammation, Eyelid inflammation, Redness, Other ENT: Denies: Head Aches, Ear Pain, Dysphagia, Sinus Congestion, Post Nasal Drip, Sore Throat, Epistaxis, Other Symptoms Skin: Denies: Rash, Lesions, Jaundice, Bruising, Itching, Dry, Breakdown, Nail Changes, Other Pulmonary: Reports: Dyspnea Cardiovascular: Denies: Chest Pain, Palpitations, Orthopnea, Paroxysmal Noc. Dyspnea, Edema, Lt Headedness, Other Symptoms Gastrointestinal: Denies: Nausea, Vomiting, Abdominal Pain, Diarrhea, Constipation, Melena, Hematochezia, Other Symptoms Musculoskeletal: Denies: Neck Pain, Back Pain, Shoulder Pain, Arm Pain, Hand Pain, Leg Pain, Foot Pain, Joint Pain, Muscle Pain, Spasms, Other Symptoms Neurological: Denies: Weakness, Numbness, Incoordination, Change in speech, C onfusion, Seizures, Other Symptoms Objective Physical Examination General Exam: Positive: Alert, Cooperative Eye Exam: Positive: PERRLA, Conjunctiva & lids normal ENT Exam: Positive: Atraumatic, Mucous membr. moist/pink Neck Exam: Positive: Supple Chest Exam: Positive: Diminished (. Breath sounds bilaterally) Heart Exam: Positive: Rate Normal, Normal S1, Normal S2 Abdomen Exam: Positive: Normal bowel sounds, Soft, Tenderness Skin Exam: Positive: Nl turgor and temperature Neuro Exam: Positive: Strength at 5/5 X4 ext, Sensation Intact Assessment /Plan Problems (1) COPD exacerbation Status: Acute Response to Treatment: Improving Problem Text: COPD and or radiation pneumonitis Patient is improving with the steroids and nebulizer treatment Continue oxygen support Continue Solu-Medrol 40 mg IV every 12 hours DC Levaquin. No evidence of infection on lab or Radiological findings Continue nebulizer treatment O2 support (2) Small cell lung cancer in adult Onset Date: ~ 08/2018 Status: Acute Problem Text: History of left lung, small cell cancer , Status post chemotherapy and radiation therapy Plan/VTE VTE Prophylaxis Ordered?: Yes VS, [facility]&O[facility] Vital Signs/I&O Vital Signs Date Time Temp Pulse Resp B/P (MAP) Pulse Ox O2 Delivery O2 Flow Rate FiO2 01/14/19 06:00 98.2 100 18 124/76 (92) 94 3.0 01/14/19 01:23 Nasal Cannula I&O- Last 24 Hours up to 6 AM 01/14/19 06:00 Intake Total 793 ml Output Total 575 ml Balance 218 ml Laboratory Data 24H LABS Laboratory Tests 2 01/13/19 10:40: Immature Granulocyte % (Auto) 0.6, White Blood Count 9.6, Red Blood Count 3.22L, Hemoglobin 11.2L, Hematocrit 34.0L, Mean Corpuscular Volume 105.6H, Mean Cor puscular Hemoglobin 34.8H, Mean Corpuscular Hemoglobin Concent 32.9, Red Cell Distribution Width 16.4H, Platelet Count 347, Neutrophils (%) (Auto) 75.5H, Lymphocytes (%) (Auto) 4.7L, Monocytes (%) (Auto) 17.8H, Eosinophils (%) (Auto) 0.9, Basophils (%) (Auto) 0.5, Neutrophils # (Auto) 7.3, Lymphocytes # (Auto) 0.5L, Monocytes # (Auto) 1.7H, Eosinophils # (Auto) 0.1, Basophils # (Auto) 0.1, Nucleated Red Blood Cells % (auto) 0.0, Lactic Acid Level 0.6 01/13/19 10:41: Anion Gap 7L, Glomerular Filtration Rate > 60.0, Calcium Level 9.0, Aspartate Amino Transf (AST/SGOT) 15, Alanine Aminotransferase (ALT/SGPT) 11L, Alkaline Phosphatase 81, Total Bilirubin 0.3, Direct Bilirubin < 0.1, Total Creatine Kinase 37, Creatine Kinase MB 1.3, Creatine Kinase MB Relative Index 3.51, T roponin I < 0.02, CF-Zcr-R-Type Natriuretic Peptide 427H, Total Protein 7.2, Albumin 3.4, Albumin/Globulin Ratio 0.89L, Thyroid Stimulating Hormone (TSH) 1.870, Thyroxine (T4) 9.2 01/13/19 11:01: POC pH (Misc Panel) 7.432, POC Base Excess (Misc Panel) 2.0, POC Saturated Percent O2 (Misc) 92L, POC pO2 (Misc Panel) 61.0L, POC pCO2 (Misc Panel) 39.9, POC HCO3 (Misc Panel) 26.6H, POC Total CO2 (Misc Panel) 28.0H 01/13/19 12:46: Urine Color YELLOW, Urine Appearance CLEAR, Urine pH 5.0, Urine Specific [place] >1.060H, Urine Protein NEGATIVE, Urine Glucose (UA) NEGATIVE, Urine Ketones 1+H, Urine Blood 1+H, Urine Nitrite NEGATIVE, Urine Bilirubin NEGATIVE, Urine Urobilinogen 0.2, Urine Leukocyte Esterase NEGATIVE, Urine WBC (Auto) 0, Urine RBC (Auto) 4H, Urine Hyaline Casts (Auto) 0, Urine Bacteria (Auto) NEGATIVE, Urine Squamous Epithelial Cells 0, Urine Mucus (Auto) SMALL, Urine Sperm (Auto) 01/13/19 16:20: 01/14/19 06:20: Nucleated Red Blood Cells % (auto) 0.0, Anion Gap 6L, Glomerular Filtration Rate > 60.0, Blood Urea Nitrogen 14, Creatinine 0.62, Sodium Level 136, Potassium Level 4.6, Chloride Level 103, Carbon Dioxide Level 27, Calcium Level 9.2 CBC/BMP Laboratory Tests 01/13/19 10:40 Red Blood Count 3.22 L, Mean Corpuscular Volume 105.6 H, Mean Corpuscular Hemoglobin 34.8 H, Mean Corpuscular Hemoglobin Concent 32.9, Red Cell Distribution Width 16.4 H, Neutrophils (%) (Auto) 75.5 H, Lymphocytes (%) (Auto) 4.7 L, Monocytes (%) (Auto) 17.8 H, Eosinophils (%) (Auto) 0.9, Basophils (%) (Auto) 0.5, Neutrophils # (Auto) 7.3, Lymphocytes # (Auto) 0.5 L, Monocytes # (Auto) 1.7 H, Eosinophils # (Auto) 0.1, Basophils # (Auto) 0.1 01/13/19 10:41 01/14/19 06:20 Red Blood Count 3.09 L, Mean Corpuscular Volume 101.6 H, Mean Corpuscular Hemoglobin 33.7 H, Mean Corpuscular Hemoglobin Concent 33.1, Red Cell Distribution Width 15.9 H, Calcium Level 9.2 Microbiology Microbiology 01/13/19 Blood Culture, Received Pending 01/13/19 Blood Culture, Received Pending 01/13/19 Respiratory Virus Panel (PCR) ([facility]) - Final, Complete SUSI GUTIERREZ MD Jan 14, 2019 10:33
[2019-01-14] MEDS: methylPREDNISolone INJ 40 MG/1 ML VIAL (J2920) IV SCH ×2 (11:42→23:48)
--- NOTE | 2019-01-14 13:11 | ECHO ---
DATE OF STUDY: 01/13/2019 REFERRING PHYSICIAN: Dr. Travis Castillo INDICATION: Dyspnea. HEIGHT: 175 cm WEIGHT: 67 kg 2-D MEASUREMENTS: Aortic root: 3.1 cm Left atrium: 2.7 cm Ventricular septum: 1.02 cm Posterior wall: 1.04 cm Left ventricle diastole: 4.6 cm Inferior vena cava: 2.2 cm (more than 50% respiratory variation) DOPPLER MEASUREMENTS: Aortic valve velocity: 164 cm/s LVOT velocity: 124 cm/s LVOT VTI: 19.8 cm Trace mitral regurgitation. Mitral E velocity: 57.7 cm/s Mitral A velocity: 85.4 cm/s Very mild tricuspid regurgitation. Estimated right ventricle systolic pressure: 31-33 mmHg MITRAL ANNULAR TISSUE DOPPLER: E prime septal: 7.3 cm/s E prime lateral: 10.9 cm/s DESCRIPTION: Rhythm was sinus tachycardia. Image quality was adequate. No pericardial effusion. This was a 2-D, M-mode, color flow Doppler and pulse waved Doppler examination and included mitral annular tissue Doppler. CONCLUSIONS: 1. Suggestive of pulmonary artery systolic pressure to be near the upper limits of normal to slightly increased (31-33 mmHg). Normal right ventricle size and systolic function. Normal size of the right atrium. Sinus venous pressure estimated to be 5-10 mmHg. 2. Normal left ventricle internal dimensions and wall thickness. Normal regional LV wall motion and wall thickening. Normal LV systolic function. Left ventricular ejection fraction (LVEF) 65% by visual estimate. Grade 1 LV diastolic dysfunction during sinus tachycardia. 3. Otherwise, normal echocardiogram-Doppler findings.
[2019-01-14 14:00] VITALS: BP 128/73
[2019-01-14] MEDS: IPRATROPIUM 0.5MG/ALBUTEROL 2.5MG INH SOL UD 3ML (DUONEB)(J7620) NEB PRN (16:53)
[2019-01-14] MEDS: traMADol 50 MG TAB PO PRN (20:43)
[2019-01-14 22:00] VITALS: BP 124/76
[2019-01-14 22:30] VITALS: O2SAT 94
[2019-01-15] MEDS: IPRATROPIUM 0.5MG/ALBUTEROL 2.5MG INH SOL UD 3ML (DUONEB)(J7620) NEB PRN ×4 (00:24→20:24)
[2019-01-15 06:00] VITALS: BP 134/78
[2019-01-15 06:26] LABS: HEMATOCRIT 33.7 % (36.0-47.0); HEMOGLOBIN 10.8 g/dl (12.0-15.5); MEAN CORPUSCULAR HEMOGLOBIN 34.3 pg (27.0-33.0); PLATELET COUNT, AUTOMATED 371 10^3/uL (150-450); RED BLOOD COUNT 3.15 10^6/uL (4.00-5.40); WHITE BLOOD COUNT 15.7 10^3/uL (4.0-10.0)
[2019-01-15 06:57] LABS: BLOOD UREA NITROGEN 19 MG/DL (7-18); CARBON DIOXIDE LEVEL 29 MEQ/L (21-32); CHLORIDE LEVEL 103 MEQ/L (98-107); CREATININE FOR GFR 0.64 MG/DL (0.55-1.30); GLOMERULAR FILTRATION RATE > 60.0 (>51); GLUCOSE, FASTING 112 MG/DL (70-100); POTASSIUM SERUM 4.4 MEQ/L (3.5-5.1); SODIUM LEVEL 139 MEQ/L (136-145)
[2019-01-15] MEDS: ENOXAPARIN 40 MG/0.4 ML SYRINGE (J1650) SC SCH (08:43)
[2019-01-15] MEDS: PANTOPRAZOLE 40MG TAB (PROTONIX) PO SCH (08:43)
[2019-01-15] MEDS: NICOTINE 14 MG/24 HR TRANSDERMAL TD SCH (08:44)
[2019-01-15] MEDS: methylPREDNISolone INJ 40 MG/1 ML VIAL (J2920) IV SCH ×2 (10:56→22:11)
--- NOTE | 2019-01-15 13:38 | IPNPDOC ---
Date Seen The patient was seen on 01/15/19. Progress Note SUBJECTIVE: Patient was seen and examined this morning. She currently has no new complaints and there have been no adverse events reported overnight. She does continue to require supplemental oxygen. She denies worsening shortness of breath however, she is not at her baseline. She denies any chest pain. She denies any nausea, vomiting, diarrhea or constipation OBJECTIVE PHYSICAL EXAMINATION: VITAL SIGNS: Please see below. GENERAL: awake, alert, and oriented. Appears in no acute distress. Sitting comfortably up in bed. She is conversive HEENT: Atraumatic, normocephalic. Eyes are nonicteric. Trachea is midline CARDIOVASCULAR: Normal S1, S2. Regular rate and rhythm. No clicks, rubs, or murmurs RESPIRATORY: Clear vesicular lung sounds bilaterally. Slightly decreased in the base. No wheezes, rhonchi, or rales. No accessory muscle use. No clubbing or cyanosis of the nail bed. ABDOMINAL: Soft, nondistended. Nontender to palpation in all 4 quadrants. Normoactive bowel sounds in all 4 quadrants EXTREMITIES: no edema. 2+ posterior tibial and radial pulses bilaterally NEUROLOGICAL: No focal neurological deficits PSYCHOLOGICAL: Mood and affect appear appropriate LABORATORY DATA, IMAGING STUDIES, MICROBIOLOGY: Please see below. Echocardiogram: NAME: MARCY REGALADO : 1960 MEDICAL REC #: [id number] ROOM: [facility] ACCOUNT: [id number] ORDERING DOCTOR: LATASHA HARRIS DO PATIENT STATUS: ADM IN DICTATING DOCTOR: Darshan Pelletier MD [facility] REPORT #: [id number] cc: [~ rep ct ivnm DATE OF STUDY: 01/13/2019 REFERRING PHYSICIAN: Dr. Latasha Harris INDICATION: Dyspnea. HEIGHT: 175 cm WEIGHT: 67 kg 2-D MEASUREMENTS: Aortic root: 3.1 cm Left atrium: 2.7 cm Ventricular septum: 1.02 cm Posterior wall: 1.04 cm Left ventricle diastole: 4.6 cm Inferior vena cava: 2.2 cm (more than 50% respiratory variation) DOPPLER MEASUREMENTS: Aortic valve velocity: 164 cm/s LVOT velocity: 124 cm/s LVOT VTI: 19.8 cm Trace mitral regurgitation. Mitral E velocity: 57.7 cm/s Mitral A velocity: 85.4 cm/s Very mild tricuspid regurgitation. Estimated right ventricle systolic pressure: 31-33 mmHg MITRAL ANNULAR TISSUE DOPPLER: E prime septal: 7.3 cm/s E prime lateral: 10.9 cm/s DESCRIPTION: Rhythm was sinus tachycardia. Image quality was adequate. No pericardial effusion. This was a 2-D, M-mode, color flow Doppler and pulse waved Doppler examination and included mitral annular tissue Doppler. CONCLUSIONS: 1. Suggestive of pulmonary artery systolic pressure to be near the upper limits of normal to slightly increased (31-33 mmHg). Normal right ventricle size and systolic function. Normal size of the right atrium. Sinus venous pressure estimated to be 5-10 mmHg. 2. Normal left ventricle internal dimensions and wall thickness. Normal regional LV wall motion and wall thickening. Normal LV systolic function. Left ventricular ejection fraction (LVEF) 65% by visual estimate. Grade 1 LV diastolic dysfunction during sinus tachycardia. 3. Otherwise, normal echocardiogram-Doppler findings. DD: Darshan Pelletier MD [facility] 01/14/19 1130 DT: [place] 01/14/19 1254 DS: ANTDA 01/14/192305 <Electronically signed by Darshan Pelletier MD> 01/14/192305 DS2: DVT prophylaxis ordered?: Lovenox ASSESSMENT AND PLAN: Patient is a 58 year old female who presented to the [facility] ER with complaint of shortness of breath with a history significant for small cell lung cancer of the left lung s/p radiation and chemotherapy. Patient has had CTA and Chest X-ray both of which were unrevealing. She has had a Brain MRI on 01/09/2019 which demonstrated possible acute/subacute emboli. Patient was admitted for hypoxia likely secondary to COPD vs radiation pneumonitis. Patient has been continued on oxygen supplementation and steroids PROBLEMS: 1. Hypoxia 2/2 COPD exacerbation vs radiation pneumonitis -Patient continues to have hypoxia. She states that she feels her shortness of breath has improved. She denies any pleuritic pain. All lung imaging has been unrevealing. -Procalcitonin is 0.03 and infection is less likely. Antibiotics have been discontinued. -Continue IV steroids -Wean Oxygen. Patient will likely need home oxygen on discharge 2. Possible acute/subacute embolic infarcts on Brain MRI -Patient had received a brain MRI outpatient for her lung cancer restaging. New areas of restricted diffusion were noted within the cerebral hemispheres. There is currently not a clear etiology for this. -Patients echocardiogram and carotid doppler ultrasound was negative. Patient has no neurological symptoms. She will need follow-up with Oncology and her PCP. 3. DVT Prophylaxis -Lovenox BID 4. Tobacco Abuse -Nicotine Patch 5. Chronic pain -Continued home pain medication 6. GI prophylaxis -IV protonix DISPOSITION: Likely discharge in 24-48 hours pending clinical improvement I saw and evaluated the patient. Discussed with the resident and agree with resident's findings and plan as documented in the resident's note VS, I&O, 24H, Fishbone Vital Signs/I&O Vital Signs Date Time Temp Pulse Resp B/P (MAP) Pulse Ox O2 Delivery O2 Flow Rate FiO2 01/15/19 09:00 3.0 01/15/19 06:00 97.9 98 19 134/78 (96) 93 01/14/19 22:30 Nasal Cannula I&O- Last 24 Hours up to 6 AM 01/15/19 06:00 Intake Total 1930 ml Output Total 1225 ml Balance 705 ml Laboratory Data 24H LABS Laboratory Tests 2 01/15/19 05:58: Nucleated Red Blood Cells % (auto) 0.0, Anion Gap 7L, Glomerular Filtration Rate > 60.0, Blood Urea Nitrogen 19H, Creatinine 0.64, Sodium Level 139, Potassium Level 4.4, Chloride Level 103, Carbon Dioxide Level 29, Calcium Level 9.0 CBC/BMP Laboratory Tests 01/15/19 05:58 Red Blood Count 3.15 L, Mean Corpuscular Volume 107.0 H, Mean Corpuscular Hemoglobin 34.3 H, Mean Corpuscular Hemoglobin Concent 32.0, Red Cell Distribution Width 15.9 H, Calcium Level 9.0 Microbiology Microbiology 01/13/19 Blood Culture - Preliminary, Resulted No Growth after 48 hours. All Specime... 01/13/19 Blood Culture - Preliminary, Resulted No Growth after 48 hours. All Specime... 01/13/19 Respiratory Virus Panel (PCR) ([facility]) - Final, Complete LATASHA HARRIS DO Jan 15, 2019 13:38 SUSI GUTIERREZ MD Jan 16, 2019 07:09
[2019-01-15 14:00] VITALS: BP 137/91
[2019-01-15] MEDS ORDERED: SODIUM CHLORIDE 0.9% INJ 10 ML SYR IV PRN (19:00)
[2019-01-15 22:00] VITALS: BP 136/89
[2019-01-16 06:00] VITALS: BP 166/96
[2019-01-16 06:43] LABS: HEMATOCRIT 31.8 % (36.0-47.0); HEMOGLOBIN 10.3 g/dl (12.0-15.5); MEAN CORPUSCULAR HEMOGLOBIN 33.7 pg (27.0-33.0); MEAN CORPUSCULAR HGB CONC 32.4 g/dl (32.0-36.5); MEAN CORPUSCULAR VOLUME 103.9 fl (80.0-96.0); PLATELET COUNT, AUTOMATED 352 10^3/uL (150-450); RED BLOOD COUNT 3.06 10^6/uL (4.00-5.40); WHITE BLOOD COUNT 11.9 10^3/uL (4.0-10.0)
[2019-01-16 07:16] LABS: BLOOD UREA NITROGEN 16 MG/DL (7-18); CALCIUM LEVEL 8.8 MG/DL (8.5-10.1); CARBON DIOXIDE LEVEL 30 MEQ/L (21-32); CHLORIDE LEVEL 104 MEQ/L (98-107); CREATININE FOR GFR 0.55 MG/DL (0.55-1.30); GLOMERULAR FILTRATION RATE > 60.0 (>51); GLUCOSE, FASTING 101 MG/DL (70-100); POTASSIUM SERUM 4.4 MEQ/L (3.5-5.1); SODIUM LEVEL 140 MEQ/L (136-145)
[2019-01-16] MEDS ORDERED: diphenhydrAMINE 25 MG CAP PO ONE (08:30)
[2019-01-16] MEDS: PANTOPRAZOLE 40MG TAB (PROTONIX) PO SCH (08:31)
[2019-01-16] MEDS: NICOTINE 14 MG/24 HR TRANSDERMAL TD SCH (08:31)
[2019-01-16] MEDS: ENOXAPARIN 40 MG/0.4 ML SYRINGE (J1650) SC SCH (08:31)
[2019-01-16] MEDS ORDERED: SODIUM CHLORIDE 0.9% INJ 10 ML SYR IV SCH (09:00)
[2019-01-16 09:47] VITALS: O2SAT 93
[2019-01-16] MEDS: methylPREDNISolone INJ 40 MG/1 ML VIAL (J2920) IV SCH (10:19)
[2019-01-16] MEDS ORDERED: VENTAER INH (10:50)
[2019-01-16] MEDS ORDERED: COMBAER6 INH (10:50)
[2019-01-16] MEDS ORDERED: PRED10TA2 PO (10:50)
--- NOTE | 2019-01-16 18:48 | DS.PDOC ---
Discharge Summary General Date of Admission Jan 13, 2019 at 14:44 Date of Discharge 01/16/2019 Attending Physician: LUIS WRIGHT MD Discharge Summary PROCEDURES PERFORMED DURING STAY: None. ADMITTING DIAGNOSES: 1. Hypoxia 2. Tobacco abuse 3. 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 Hypoxia, likely secondary to COPD exacerbation versus radiation pneumonitis 2. . Tobacco abuse 3. History of small cell lung cancer. The left lung, status post radiation chemotherapy COMPLICATIONS/CHIEF COMPLAINT: Copd,Small Cell Lung Cancer In Adult. HISTORY OF PRESENT ILLNESS: Patient is a 58-year-old female who presented to [facility] emergency department with complaint of shortness of breath. She stated that in August 2018. She appears to be diagnosed with left lung small cell lung cancer. She had received both chemotherapy and radiation therapy and had finished her last round in October 2018. Patient had stated that she had always had chronic source of breath. However, she had recently noticed worsening of her shortness of breath. She had noted that on Wednesday 11/08 she developed shortness of breath that was to her worsen her baseline. At first she felt that the source of breath. We'll go away. However, throughout the weekend worsened. On 01/12/2018, the patient developed significant shortness of breath to the point where she was unable to walk even a few feet on level ground. Patient has stated that she had to stop to catch her breath, which took a few minutes. She does admit to a chronic cough with clear sputum production. However, she denies any increase in sputum production or or consistency. She admitted to chronic fatigue since her diagnosis of small cell lung cancer. Admission, the patient stated that she had fevers or chills on and off for the past few months ever since starting her chemotherapy. She denied any worsening of her fever, chills or night sweats. She denies any unintentional weight loss and in fact stated that she had been gaining weight. Before presentation to the emergency department, the patient had received imaging for restaging of her lung cancer as she is currently status post radiation and chemotherapy. This imaging was completed on 01/09/2019. Her CTA that time was negative for any acute findings. It did demonstrate some subtle groundglass lung parenchymal densities. As well as a area of atelectasis and scarring. The left lower lobe. The paralleled the major fissure. Patient did receive a brain MRI at the time was demonstrated multiple small foci of restricted diffusion within both cerebral hemispheres. However, with no enhancement of in any of those regions suggesting possibility of acute\subacute embolic infarcts. She did have a brain MRI on September 2017, which did not show these findings. The patient denies any neurological symptoms. At presentation to the emergency department, the patient was found to be hypoxic with oxygen saturations of 86% on room air. Patient stated at the time that she does not use oxygen at home. She did admit to a history of chronic obstructive pulmonary disease but denied any exacerbations or hospitalizations within the last year for COPD. Patient was placed on nasal cannula 3 L of oxygen and recovered to greater than 90%. The patient was tachycardic but was found to be to be sinus tachycardia. She had received neb treatment in the ER and reported improvement. Patient had received a CT of the chest which demonstrated similar findings to her CTA that was completed on 01/09/2019. Given the patient's persistent hypoxia and tachycardia, the hospitalist service was consulted for further evaluation and management. On admission, patient was treated for possible COPD exacerbation versus radiation pneumonitis. She was started on IV steroids as well as Levaquin. Her Levaquin was discontinued as her Proventil levels as well as clinical symptoms were not consistent with bacterial pneumonia. She was continued on supplement oxygen as well as IV steroids and demonstrated improvement in her oxygenation. Patient was able to be safely weaned off oxygen. Given the patient's history of radiation. She was continued on a two-week prednisone taper with follow-up with pulmonary medicine for Further evaluation as to whether the patient should remain on steroids for longer duration if radiation pneumonitis is still suspected. Given the patient's brain MRI findings of areas of restricted diffusion noted to both cerebral hemispheres. She had received an echocardiogram to assess for possible cardiac embolic causes. Her echocardiogram demonstrated pulmonary artery systolic pressures to be in the upper limits of normal. However, normal right ventricle size and systolic function. normal size of the right atrium. Normal. Left ventricle internal dimension and wall thickness. She had a left ventricular ejection of 65 percent. A vascular ultrasound was also obtained which demonstrated mild bilateral internal carotid artery plaque without hemodynamically significant stenosis. Currently there is no neurologic symptoms in the patient. Recommend outpatient follow-up for evaluation. DISCHARGE MEDICATIONS: Please see below. ALLERGIES: Please see below. PHYSICAL EXAMINATION ON DISCHARGE: VITAL SIGNS: Please see below. GENERAL: Awake, alert and oriented, lying comfortably in bed, appears in no acu te distress HEENT: Atraumatic normocephalic. Eyes nonicteric. Trachea is midline. Dentition is fair NECK: No palpable cervical, axillary or supraclavicular lymphadenopathy CARDIOVASCULAR EXAMINATION:. Normal S1, S2, regular rate and rhythm. No clicks, rubs or murmurs RESPIRATORY EXAMINATION: Clear vesicular breath sounds bilaterally with mild expiratory wheezing. No rhonchi or rales ABDOMINAL EXAMINATION: Soft, nondistended, nontender to palpation of 4 quadrants. Positive bowel sounds throughout EXTREMITIES:. No edema. Full and equal pulses bilateral upper and lower extremities SKIN: No rash or lesions NEUROLOGICAL EXAMINATION:. No focal neurological deficits PSYCHIATRIC EXAMINATION: Mood and affect appear appropriate LABORATORY DATA: Please see below. IMAGING: AP PORTABLE CHEST: 01/13/2019. Comparison: CT angiogram chest 01/09/2019, portable chest 09/07/2018. Clinical history: Dyspnea. There is an Burxth-M-Pxvc catheter with a right jugular line terminating in the region of the SVC junction with the right atrium. This is unchanged. Lungs are hyperinflated. There is some linear fiber ectatic change in the bases, left greater than right. No pleural effusion, lateral pleural thickening apical scarring or pneumothorax. The aorta is calcified at the arch. Airway intact bony thorax shows no acute compression fracture or destructive lesion. Impression: 1. Indwelling jugular port catheter with tip in SVC near junction with the right atrium unchanged. 2. Some underlying COPD and fibrotic change with some subsegmental linear fibrotic change in the base, left greater than right. No dense consolidation, effusion or parenchymal mass. 3. No cardiomegaly or edema. Tortuous calcified aorta, unchanged. Electronically Signed by Lino Pina MD 01/13/2019 07:[address] ANGIOGRAM CHEST: 01/13/2019. Comparison: 01/09/2019. Clinical history: Dyspnea. Limited stage small cell lung carcinoma. No emboli on the study 4 days ago. Technique: Bolus 75 ml Isovue [address] pulmonary angiogram protocol with coronal and sagittal reconstructions and standard and MIP reformats. Findings: The lung mora are well inflated. There is no pleural thickening, pleural-based mass, acute infiltrate or effusion. There is curvilinear fiber atelectatic change abutting the posterior margin major fissure in the left lower lobe unchanged. Some fiber atelectatic change in the inferior lingular segment at the anterior left lung is also seen and unchanged. I suspect some mild cervical bronchiectatic changes present. A few tiny scattered parenchymal nodules 2-3 mm in size. Emphysematous changes and central lobular emphysema seen. Minor apical pleural scarring bilaterally, unchanged. Heart not enlarged. The aorta is calcified at the arch but without aneurysm or dissection. The main, right and left pulmonary arteries and the mediastinum are without filling defect. Lobar, segmental and visible subsegmental arteries were all grossly intact. None of these show vessel cut off or definite thrombus. No pathologic sized mediastinal or hilar adenopathy. No axillary, supraclavicular mass. Tracheal airway intact. Bone windows show the sternum, manubrium, medial clavicles, visualized portions of scapulae and humeral heads, ribs and spine without focal lesion or destructive findings. Schmorl's nodes at multiple endplates. M arginal osteophytes are present dextrorotatory curve lower thoracic and upper lumbar region. Upper poles of the kidneys show no mass. Only a small portion of pancreatic tail included was unremarkable. Adrenal glands normal. No splenomegaly or hepatomegaly is suggested. Impression: 1. There is no CT evidence of pulmonary thromboembolism. 2. There is no aortic aneurysm or dissection. 3. There are some scattered 2 to 3 mm nodules in the chest. If the patient is high risk for malignancy, a follow-up scan in one year would be recommended. 4. Some curvilinear fibro atelectatic change left base unchanged. No new or acute finding elsewhere. Electronically Signed by Lino Pina MD 01/13/2019 07:41 P PROCEDURE INFORMATION: Exam: US Duplex Bilateral Extracranial Arteries Exam date and time: 01/13/2019 8:13 PM Clinical history: 58 years old, female; Other: H/o cerebral emboli; Additional info: HX of cerebral emobli TECHNIQUE: Imaging protocol: Real-time Duplex ultrasound scan of the Bilateral carotid and vertebral arteries combining arreola scale, color Doppler and spectral waveform analysis. Bilateral exam. COMPARISON: MRI-Brain W/O FOLL BY WITH 01/12/2019 5:14 PM FINDINGS: Right common carotid artery: Unremarkable. No occlusion or stenosis. Waveforms are normal. Right internal carotid artery: Mild plaque in the proximal ICA.. No occlusion or significant stenosis. Waveforms are normal. Right ICA/CCA ratio: Peak systolic ratio 0.87. End diastolic ratio is 1.2 Right external carotid artery: No stenosis in the origin. Right vertebral artery: Not visualized Left common carotid artery: Unremarkable. No occlusion or stenosis. Waveforms are normal. Left internal carotid artery: Mild plaque in the proximal ICA.. No occlusion or significant stenosis. Waveforms are normal. Left ICA/CCA ratio: Peak systolic ratio is 1.1. End diastolic ratio is 1.1. Left external carotid artery: No stenosis in the origin. Left vertebral artery: Not visualized IMPRESSION: 1. Mild bilateral ICA plaque without hemodynamically significant stenosis. Normal waveforms. 2. The bilateral vertebral arteries are not visualized. COMMENT: Carotid Stenosis Reference using SRU criteria: Mild: less than 50% stenosis. ICA PSV is less than 125 cm/second and plaque or intimal thickening is visible. Moderate: 50-69% stenosis. ICA PSV is 125 to 230 cm/second and plaque is visible. Severe: 70-94% stenosis. ICA PSV is more than 230 cm/second and visible plaque and lumen narrowing are seen. Near occlusion: 95-99% stenosis. ICA PSV is variable and significant plaque and luminal narrowing are seen. Occluded: 100% stenosis. No flow identified. Electronically signed by: Jamal Orellana On 01/13/2019 21:07:50 PM DATE OF STUDY: 01/13/2019 REFERRING PHYSICIAN: Dr. Latahsa Harris INDICATION: Dyspnea. HEIGHT: 175 cm WEIGHT: 67 kg 2-D MEASUREMENTS: Aortic root: 3.1 cm Left atrium: 2.7 cm Ventricular septum: 1.02 cm Posterior wall: 1.04 cm Left ventricle diastole: 4.6 cm Inferior vena cava: 2.2 cm (more than 50% respiratory variation) DOPPLER MEASUREMENTS: Aortic valve velocity: 164 cm/s LVOT velocity: 124 cm/s LVOT VTI: 19.8 cm Trace mitral regurgitation. Mitral E velocity: 57.7 cm/s Mitral A velocity: 85.4 cm/s Very mild tricuspid regurgitation. Estimated right ventricle systolic pressure: 31-33 mmHg MITRAL ANNULAR TISSUE DOPPLER: E prime septal: 7.3 cm/s E prime lateral: 10.9 cm/s DESCRIPTION: Rhythm was sinus tachycardia. Image quality was adequate. No pericardial effusion. This was a 2-D, M-mode, color flow Doppler and pulse waved Doppler examination and included mitral annular tissue Doppler. CONCLUSIONS: 1. Suggestive of pulmonary artery systolic pressure to be near the upper limits of normal to slightly increased (31-33 mmHg). Normal right ventricle size and systolic function. Normal size of the right atrium. Sinus venous pressure estimated to be 5-10 mmHg. 2. Normal left ventricle internal dimensions and wall thickness. Normal regional LV wall motion and wall thickening. Normal LV systolic function. Left ventricular ejection fraction (LVEF) 65% by visual estimate. Grade 1 LV diastolic dysfunction during sinus tachycardia. 3. Otherwise, normal echocardiogram-Doppler findings. DD: Darshan Pelletier MD [facility] 01/14/19 1130 DT: [place] 01/14/19 1254 DS: PRUDENCE 01/14/192305 <Electronically signed by Darshan Pelletier MD> 01/14/192305 DS2: PROGNOSIS: GOOD ACTIVITY: As tolerated. DIET: As tolerated DISCHARGE PLAN: Patient is to be discharged home with follow-up with her primary care physician in one to 2 weeks. She is to follow-up with pulmonary medicine for evaluation of her hypoxia is likely secondary to COPD exacerbation versus radiation pneumonitis. The patient to be continued on her prednisone taper over next 2 weeks. Patient was instructed to call her primary care physician if her shortness of breath worsens after she finishes her steroid taper. She was instructed to return to the emergency room if she develops worsening short of breath. Patient is to follow-up with her oncologist for further management of her small cell lung cancer of the left lobe. DISPOSITION: 01 Home, Self-Care. DISCHARGE CONDITION: Stable. I saw and evaluated the patient. I agree with the findings and plan of care as documented in the documenters note. I spent 45 minutes coordinating this patient's discharge. Vital Signs/I&Os Vital Signs Date Time Temp Pulse Resp B/P (MAP) Pulse Ox O2 Delivery O2 Flow Rate FiO2 01/16/19 09:47 93 Room Air 01/16/19 06:00 96.8 80 20 166/96 (119) 01/15/19 22:00 3.0 I&O- Last 24 Hours up to 6 AM 01/16/19 05:59 Intake Total 1450 ml Output Total 2500 ml Balance -1050 ml Laboratory Data Labs 24H Laboratory Tests 2 01/16/19 06:00: Nucleated Red Blood Cells % (auto) 0.0, Anion Gap 6L, Glomerular Filtration Rate > 60.0, Blood Urea Nitrogen 16, Creatinine 0.55, Sodium Level 140, Potassium Level 4.4, Chloride Level 104, Carbon Dioxide Level 30, Calcium Level 8.8 CBC/BMP Laboratory Tests 01/16/19 06:00 Red Blood Count 3.06 L, Mean Corpuscular Volume 103.9 H, Mean Corpuscular Hemoglobin 33.7 H, Mean Corpuscular Hemoglobin Concent 32.4, Red Cell Distribution Width 16.0 H, Calcium Level 8.8 Microbiology Microbiology 01/13/19 Blood Culture - Preliminary, Resulted No Growth after 72 hours. All specime... 01/13/19 Blood Culture - Preliminary, Resulted No Growth after 72 hours. All specime... 01/13/19 Respiratory Virus Panel (PCR) ([facility]) - Final, Complete Discharge Medications Scheduled Diphenhydramine HCl/Zinc Acet (Benadryl Itch Stopping Crm) 28.3 Gm Cream..g., 1 APLCT TOP TID Lidocaine/Prilocaine (Lidocaine-Prilocaine Cream) 2.5%/2.5% Cream..g., 1 DOSE TOP ASDIRECTED Apply dime size to port area. Do not rub in, cover with saran wrap to protect clothing. Prednisone (Prednisone) 10 Mg Tablet, 10 MG PO TAPER Take 4 tabs daily x 5 days, then 3 tabs daily x 4 days, then 2 tabs daily x 3 days, then 1 tab daily x 2 days and stop Scheduled PRN Acetaminophen (Acetaminophen) 500 Mg Tablet, 1,000 MG PO TID PRN for PAIN, (Reported) Albuterol Sulfate (Albuterol Sulfate) 2.5 Mg/0.5 Ml Vial.neb, 2.5 MG INH Q4H PRN for SHORTNESS OF BREATH, (Reported) Albuterol Sulfate (Ventolin Hfa) 18 Gm Hfa.aer.ad, 2 PUFF INH Q4H PRN for SHORTNESS OF BREATH Ibuprofen (Ibuprofen) 200 Mg Capsule, 400 MG PO Q6H PRN for PAIN, (Reported) Ipratropium/Albuterol Sulfate (Combivent Respimat 20-100 Mcg) 4 Gm Mist.inhal, 1 PUFF INH QID PRN for SHORTNESS OF BREATH Olanzapine (Olanzapine) 10 Mg Tablet, 10 MG PO DAILY PRN for SEVERE NAUSEA Ondansetron HCl (Ondansetron HCl) 8 Mg Tablet, 8 MG PO Q6HP PRN for NAUSEA OR VOMITING Tramadol HCl (Tramadol HCl) 50 Mg Tablet, 1 TAB PO BIDP PRN for pain Allergies Coded Allergies: No Known Allergies (Verified , 07/29/17) LATASHA HARRIS DO Jan 16, 2019 18:48 LUIS WRIGHT MD Jan 18, 2019 10:51
--- NOTE | 2019-01-17 00:32 | ECGEPIP ---
[facility] Test Date: 2019-01-16 Pat Name: MARCY REGALADO Department: Room: [place] [address] Gender: Female [employer] Consultant: TAMELA : 1960 Requested By: LUIS WRIGHT Order Number: [id number] Reading MD: Bhaskar Bob Measurements Intervals [place] Rate: 93 P: [place]: 0 QRS: 73 QRSD: 92 T: 81 QT: 376 QTc: 468 Interpretive Statements ATRIAL FIBRILLATION MINIMAL VOLTAGE CRITERIA FOR LVH, CONSIDER NORMAL VARIANT CONSIDER EARLY REPOLARIZATION ABNORMAL RHYTHM ECG COMPARED TO THE LAST 2 TRACINGS IN THE SYSTEM, HEART RATE IS NOW SLOWER OTHERWISE NO SIGNIFICANT CHANGES Electronically Signed on 01-17-2019 0:32:05 EDT by Bhaskar Bob
== END 2019-01-16 13:05 | disposition home or self-care (01) | DRG 143 ==
LOC: M ED 09:59 → M ED INP 14:44 → M MSPAV 15:50
PROVIDERS: ADMIT Internal Medicine; ATTEND Internal Medicine
DX: J70.0 Acute pulmonary manifestations due to radiation (principal); I63.49 Cerebral infarction due to embolism of other cerebral artery; J44.1 Chronic obstructive pulmonary disease with (acute) exacerbation; F17.210 Nicotine dependence, cigarettes, uncomplicated; F32.9 Major depressive disorder, single episode, unspecified; R09.02 Hypoxemia; Z79.891 Long term (current) use of opiate analgesic; Z79.899 Other long term (current) drug therapy; Z92.21 Personal history of antineoplastic chemotherapy; Z92.3 Personal history of irradiation; Z85.118 Personal history of other malignant neoplasm of bronchus and lung

== ENCOUNTER → 2019-01-25 | Outpatient (CLI) | payer OTHER ==
[~2019-01-25] MED LIST changes: +ACET500T15 PO; +ALB2.5NEB INH; +COMBAER6 INH; -EMLA CREAM 5GM (LIDOCAINE/PRILOCAINE) TOP SCH; +IBUP200C25 PO
--- NOTE | 2019-01-26 11:07 | RADONC ---
RADIATION ONCOLOGY CONSULTATION NOTE DATE: 01/25/2019 CHART NUMBER: [id number] DIAGNOSIS: Small cell lung carcinoma. STAGE: Limited stage small-cell lung carcinoma. ECOG PERFORMANCE STATUS: 0 CONSULTATION NOTE: Ms. Smith is a very pleasant, 58-year-old white female with the diagnosis of a limited stage small-cell lung carcinoma who is well-known to our department and completed a course of thoracic consolidative radiation on 11/06/2018. She has received concomitant chemotherapy with cisplatin and etoposide for four cycles from 10/05/2018 through 12/20/2018. Since completion of therapy, the patient has had an MRI of the brain done on 01/12/2019 that failed to show any definitive enhancing metastasis. In addition, an angio CT scan of the chest was done on 01/13/2019, which showed some atelectatic change in the left base, which was unchanged. There was no definitive sign of malignancy. The patient is now being referred for discussion of possible external beam radiation therapy for prophylactic cranial treatment. She is scheduled for a PET CT scan in approximately 4 weeks in February. REVIEW OF SYSTEMS: The patient's review of systems is positive for shortness of breath but is otherwise noncontributory. Denies nausea, vomiting, fevers, chills, night sweats, diplopia, headaches, anxiety or depression, anorexia, weight loss, visual disturbances, chest pain, urinary or bowel difficulties, bone pain, or neurological problems. PHYSICAL EXAMINATION: The patient is a well-developed, well-nourished, [id number] white female, in no acute distress. HEENT exam is normocephalic, atraumatic. Extraocular movements are intact. There is no palpable cervical, supraclavicular, infraclavicular, axillary, or inguinal lymphadenopathy present. Lungs have some coarse breath sounds as well as occasional wheezing. Heart has a regular rate and rhythm. Abdomen is benign with no hepatosplenomegaly, masses, or tenderness. Skeletal examination reveals no tenderness to pressure or percussion of the bony skeleton. Extremities reveal no clubbing, cyanosis, or edema. Neurologic exam is grossly intact, as is the remainder of the physical examination. ASSESSMENT:: I had a very lengthy discussion with this patient and her family with regards to the rationale behind offering prophylactic cranial irradiation to patients with limited stage small-cell lung carcinoma. We discussed logistics of treatment planning, simulation and subsequent fractionated daily radiation treatments. We would be planning on delivering 10 fractions of 250 cGy each to dose of approximately 2500 cGy. We did go into the long-term issues with regards to memory and other neurological questions following radiation to the brain. We did discuss the benefits in detail as well with regards to increase local control and disease and even disease-free survival in patients with limited stage small-cell lung carcinoma. All these benefits, however are dependent on achieving control of disease below the blood brain barrier. The patient initially does not wish to consider prophylactic cranial irradiation. The patient is scheduled for a PET scan in mid February. The decision on cranial radiation of course can wait till after that since that is just 4 weeks away. I am scheduling the patient to see me again in re-consultation following the PET scan so we can discuss the findings. Clearly if there is new metastatic disease or continued disease then prophylactic cranial radiation would not be of benefit to this patient. If there is a complete response however and no evidence of disease this would give her a chance to further think about the treatment and make a decision at that point. So once again in summary, the patient is scheduled for PET CT in approximately 4 weeks and we will be seeing her following that. She has been given educational instruction and has our phone number if she has any questions in the meantime. I do believe at this point if the PET scan were negative she would be a candidate for prophylactic cranial radiation and may benefit from it. Thank you for allowing us to participate in the care of this very pleasant woman. If I could be of any further assistance or provide you with any information, please feel free to contact me at anytime. As always, warm regards. cc: MD Ben Forrester MD
== END ==
LOC: M ONCR 10:00
PROVIDERS: ATTEND Radiology Radiation Oncology
DX: C34.90 Malignant neoplasm of unspecified part of unspecified bronchus or lung (principal)

== ENCOUNTER → 2019-01-31 | Outpatient (CLI) | payer OTHER ==
--- NOTE | 2019-02-05 09:43 | ECHO ---
DATE OF STUDY: 01/31/2019 REFERRING PHYSICIAN: Dr. Christine Priest INDICATION: Acute stroke. Rule out patent foramen ovale. HEIGHT: 5 feet 9 inches. WEIGHT: 152 pounds. 2-D MEASUREMENTS: Left ventricle diastole: 4.6 cm Left ventricle systole: 2.9 cm Ventricular septum: 0.97 cm Posterior wall: 0.98 cm Aortic root: 3.1 cm Left atrium: 2.9 cm Inferior vena cava: 1.9 cm DOPPLER MEASUREMENTS: Aortic valve velocity: 122 cm/sec LVOT velocity: 88.8 cm/sec LVOT VTI: 14.4 cm Trace mitral regurgitation No aortic regurgitation Mild tricuspid regurgitation No pulmonic regurgitation Mitral E velocity: 49.7 cm/sec Mitral A velocity: 70.7 cm/sec Pulmonary artery acceleration time: 67 ms MITRAL ANNULAR TISSUE DOPPLER: E prime septal: 5.9 cm/sec E prime lateral: 7.1 cm/sec DESCRIPTION: The rhythm was sinus. Image quality was fair. No pericardial effusion. Images from the suprasternal notch to look at the aortic arch were technically difficult. CONCLUSIONS: 1. Normal left ventricle internal dimensions and wall thickness. Normal regional LV wall motion and wall thickening. Normal LV systolic function. Left ventricle ejection fraction (LVEF) 65% by visual estimate. Grade 1 LV diastolic function. 2. Suggestive of moderate degree of pulmonary artery hypertension. 3. Mild mitral annular calcification. Trace mitral regurgitation. ADDITIONAL COMMENTS AND RECOMMENDATIONS: Please be aware that a bubble study was not performed and that this transthoracic echocardiogram is not an adequate diagnostic choice for exclusion of patent foramen ovale or many other potential causes of systemic embolism. Transesophageal echocardiography is much more sensitive and specific. Suggest referral to a fell cutter with ability to perform transesophageal echocardiogram to further evaluate for potential cardiac sources of systemic emboli.
== END ==
LOC: M CARPUL 10:31
PROVIDERS: ATTEND Internal Medicine Medical Oncology
DX: C34.90 Malignant neoplasm of unspecified part of unspecified bronchus or lung (principal); I34.0 Nonrheumatic mitral (valve) insufficiency

== ENCOUNTER → 2019-02-01 | Outpatient (REF) | payer OTHER | LOC: M LAB REF 13:13 | PROVIDERS: ATTEND Internal Medicine Pulmonary Disease | DX: J44.1 Chronic obstructive pulmonary disease with (acute) exacerbation (principal) ==

== ENCOUNTER → 2019-02-27 | Outpatient (CLI) | payer OTHER ==
--- NOTE | 2019-02-27 19:47 | REP ---
PET/CT: History: Restaging small cell lung carcinoma. Comparisons: Comparison PET-CT study September 27, 2018. TECHNIQUE: 49 minutes following the intravenous injection of a 8.57 mCi dose of F-18 FDG, three-dimensional PET scintigraphy is acquired from the skull base to the proximal thighs. Triplanar noncontrast CT scanning is acquired through the same anatomic range for attenuation correction, and image registration with scan parameters optimized to minimize radiation exposure to the patient. PET scintigraphy and CT datasets were fused and displayed on a workstation with multiplanar and projection display capability. PET/CT Findings: There is a new focus of minimally hypermetabolic uptake in a peripheral pleural-based plaque-like density in the right middle lobe anteriorly along the anterolateral chest wall. Maximum standard uptake value here is 2.97. There is some streaky discoid atelectasis associated with this. No other abnormal hypermetabolic pulmonary parenchymal uptake is seen. There is a new nonmetabolically active sub-centimeter nodule in the left lower lobe. Maximum standard uptake value is 0.78. No abnormal mediastinal hypermetabolic uptake is seen. The previously noted foci of mediastinal uptake are resolved. No abnormal hilar uptake is seen. Head and neck soft tissues are unremarkable. In the abdomen and pelvis, there is normal hepatic, splenic, gastrointestinal and genitourinary FDG accumulation. No abnormal hypermetabolic uptake is seen. Impression: The previously noted left hilar and mediastinal hypermetabolic uptake foci have resolved. There is a new peripheral area of pleural-based opacity and uptake in the right middle lobe which could be post inflammatory change. There is a new small subcentimeter nodule in the left lower lobe which shows no discernible uptake, 8 mm in diameter. Otherwise negative. Electronically Signed by Ozzie Walls MD 02/27/2019 08:16 P
== END ==
LOC: M PLARAD 09:30
PROVIDERS: ATTEND Internal Medicine Medical Oncology
DX: C34.32 Malignant neoplasm of lower lobe, left bronchus or lung (principal)
CPT/HCPCS: 78815; A9552

== ENCOUNTER → 2019-03-13 | Outpatient (CLI) | payer OTHER ==
--- NOTE | 2019-03-15 09:13 | RADONC ---
RADIATION ONCOLOGY FOLLOWUP NOTE DATE: 03/13/2019 CHART NUMBER: [id number] DIAGNOSIS: Small cell lung carcinoma. STAGE: Limited stage. ECOG PERFORMANCE STATUS: 0 FOLLOWUP NOTE: Ms. Smith is a very pleasant 59-year-old white female with the diagnosis of a limited stage small cell lung carcinoma who is well known to our department and was last seen by us on 01/25/2019 for discussion of prophylactic cranial irradiation. Since that visit, the patient had a PET CT scan done on 02/27/2019 that showed the previous left hilar and mediastinal hypermetabolic uptake had resolved. There was no other evidence of hypermetabolic uptake. The patient was seen by her medical oncologist, Dr. Priest. Did discuss prophylactic cranial irradiation again and is now returning for final discussion and to make a decision with regards to that possible treatment modality. REVIEW OF SYSTEMS: The patient's review of systems is noncontributory. Denies nausea, vomiting, fevers, chills, night sweats, diplopia, headaches, anxiety or depression, anorexia, weight loss, visual disturbances, chest pain, urinary or bowel difficulties, bone pain, or neurological problems. PHYSICAL EXAMINATION: The patient is a well-developed, well-nourished, 59-year-old female, in no acute distress. HEENT exam is normocephalic, atraumatic. Extraocular movements are intact. There is no palpable cervical, supraclavicular, infraclavicular, axillary, or inguinal lymphadenopathy present. Lungs are clear to auscultation and percussion. Heart has a regular rate and rhythm. Abdomen is benign with no hepatosplenomegaly, masses, or tenderness. Skeletal examination reveals no tenderness to pressure or percussion of the bony skeleton. Extremities reveal no clubbing, cyanosis, or edema. Neurologic exam is grossly intact, as is the remainder of the physical examination. ASSESSMENT: After a lengthy discussion with this patient once again she has decided that she does wish to undertake prophylactic cranial irradiation. She does realize that this is prophylactic in nature and that at this time we have no known disease in the brain. We once again discussed in detail the potential benefits as well as possible acute and chronic sequelae of external beam radiation therapy. We discussed logistics of treatment planning, simulation subsequent fractionated daily radiation treatments. I will be out of town next week and the patient wishes to undertake treatment planning when I return the second week of March. In light of this, I am referring her for simulation at that time. Thank you for allowing us to participate in the care of this very pleasant woman. I believe we can be of some benefit to her. As always, warm regards. cc: MD Ben Forrester MD
== END ==
LOC: M ONCR 12:53
PROVIDERS: ATTEND Radiology Radiation Oncology
DX: C34.90 Malignant neoplasm of unspecified part of unspecified bronchus or lung (principal)

== ENCOUNTER → 2019-04-17 | Outpatient (RCR) | payer OTHER ==
[2019-03-27 14:58] LABS: BASO % 0.7 % (0.0-1.0); EOS # 0.1 10^3/uL (0.0-0.5); EOS % 2.3 % (0.0-3.0); HEMATOCRIT 44.4 % (36.0-47.0); HEMOGLOBIN 14.3 g/dl (12.0-15.5); LYMPH # 0.5 10^3/uL (1.5-5.0); LYMPH % 9.1 % (24.0-44.0); MEAN CORPUSCULAR HEMOGLOBIN 32.1 pg (27.0-33.0); MEAN CORPUSCULAR HGB CONC 32.2 g/dl (32.0-36.5); MEAN CORPUSCULAR VOLUME 99.6 fl (80.0-96.0); MONO # 0.8 10^3/uL (0.0-0.8); MONO % 13.4 % (0.0-5.0); NEUTROPHILS # 4.4 10^3/uL (1.5-8.5); NEUTROPHILS % 74.3 % (36.0-66.0); PLATELET COUNT, AUTOMATED 217 10^3/uL (150-450); RED BLOOD COUNT 4.46 10^6/uL (4.00-5.40)
--- NOTE | 2019-03-28 12:37 | RADONC ---
RADIATION ONCOLOGY SIMULATION NOTE DATE: 03/27/2019 CHART NUMBER: [id number] Ms. Smith was taken to the CT scan for CT simulation of her brain field. CT was accomplished without difficulty or discomfort. Radiation treatment planning is underway and radiation treatments will begin subsequently. An immobilization device, including a mask was created without difficulty or discomfort. It will be used throughout the course of treatment. I was physically present throughout the course of CT simulation.
--- NOTE | 2019-04-04 06:37 | RADONC ---
RADIATION ONCOLOGY PROGRESS NOTE DATE: 04/02/2019 CHART NUMBER: [id number] Ms. Smith underwent her first fraction of radiation today to the brain for a dose of 250 cGy. It was tolerated without difficulty or discomfort. REVIEW OF SYSTEMS: The patient's review of systems is noncontributory. She denies nausea, vomiting, fevers, chills, night sweats, diplopia, headaches, anxiety or depression, anorexia, weight loss, visual disturbances, chest pain, urinary or bowel difficulties, bone pain, or neurological problems. PHYSICAL EXAMINATION: Clearly there was no radiation change present over the skin of the newly treated field since this was her first fraction of radiation. The remainder of her physical exam remains unchanged. Ms. Smith tolerated radiation well and radiation will continue as scheduled.
--- NOTE | 2019-04-13 08:59 | RADONC ---
RADIATION ONCOLOGY PROGRESS NOTE DATE: 04/09/2019 CHART NUMBER: [id number] PROGRESS NOTE: Ms. Serina Smith with a diagnosis of lung cancer metastatic to brain is currently receiving whole brain radiotherapy and her dose to date is 1250 cGy of an anticipated 2500 cGy. She is tolerating her therapy reasonably well with the exception of some minor headaches after each treatment and throughout the weekend. She also has some nausea. Because we anticipate that she may have some cerebral edema secondary to her radiotherapy I would like to place her on approximately 12-16 mg of dexamethasone per day. This prescription will be eScript to her pharmacy in [facility]. EXAMINATION FINDINGS: The skin within the irradiated volume shows no significant erythema and no focal desquamation. There is no palpable peripheral lymphadenopathy. Lungs: Reveal some inspiratory rhonchi. Heart: Regular without murmurs. Abdomen: Without evidence of hepatomegaly, masses, deep abdominal tenderness. Extremities: Without cyanosis, clubbing or edema. Neurologic Examination: Nonfocal, but the patient does not feel well secondary to her headache. IMPRESSION: The patient may have some mild cerebral edema secondary to radiotherapy. PLAN: Dexamethasone 12-16 mg per day and a tapering dose thereafter at the conclusion of her radiotherapy. MTDD
--- NOTE | 2019-04-16 13:28 | RADONC ---
RADIATION ONCOLOGY PROGRESS NOTE DATE: 04/16/2019 CHART NUMBER: [id number] Mrs. Smith with a diagnosis of lung carcinoma with evidence of brain metastasis is currently receiving brain radiotherapy and tolerating her radiotherapy well. Last week it was noted that the patient was not on any steroids and she developed a headache with some other issues of general not feeling well. She was placed on steroids with complete resolution of her headache and dysphoria. She denies any nausea or vomiting currently where she was having nausea before. Otherwise she has completely improved with regards to her symptoms she was having. She remains on 12 mg per day and I have sent in a refill to her pharmacy and instructed her as to how to taper herself off the steroids. She denies any other problems related to the treatment. PHYSICAL EXAMINATION: Reveals a well-nourished, well-developed female. The skin within the irradiated volume shows neither erythema nor desquamation. There is no palpable peripheral lymphadenopathy noted in the cervical, supraclavicular, axillary, or inguinal lymph node chains. Lungs: Reveals some expiratory rhonchi. No neurologic focal signs are noted. IMPRESSION: Tolerating therapy well. PLAN: Treatments to continue. Thank you for allowing us the opportunity of participation in the management of this patient.
[~2019-04-17] MED LIST changes: +DECA4TAB PO
== END ==
LOC: M ONCR 03-27 13:54
PROVIDERS: ATTEND Radiology Radiation Oncology
DX: C34.92 Malignant neoplasm of unspecified part of left bronchus or lung (principal)

== ENCOUNTER 2019-04-19 10:38 | Outpatient (RCR) | payer MEDICAID, OTHER ==
[~2019-04-19 10:38] MED LIST changes: +ONDA8TAB10 PO; -ONDA8TAB7 PO
--- NOTE | 2019-04-19 19:35 | RADONC ---
RADIATION ONCOLOGY TREATMENT SUMMARY DATE: 04/19/2019 CHART NUMBER: [id number] DIAGNOSIS: Small cell lung carcinoma. STAGE: Limited stage. ECOG PERFORMANCE STATUS: Zero. TREATMENT SUMMARY: Ms. Smith is a very pleasant 59-year-old white female with a diagnosis of limited stage small-cell lung carcinoma who presented to us for consideration of prophylactic cranial irradiation. We treated the patient to her brain for a dose of 2500 cGy delivered in 10 fractions of 250 cGy each over 17 elapsed days from 04/02/2019 through 04/19/2019. The patient's brain was treated on the linear accelerator utilizing 3D conformal technique with parallel opposed lateral mora and a 6 MV photon beam. Ms. Smith tolerated her treatments quite well and was able to complete therapy as prescribed without interruption. I have scheduled the patient to see me again in 1 month for further followup. She will also continue to follow her other physicians as well. cc: MD Ben Forrester MD
[2019-05-03] MEDS ORDERED: FLUC10TA PO (15:31)
[2019-05-05] MEDS ORDERED: FLUC100T PO (08:15)
[2019-05-05] MEDS ORDERED: DEXA4TA PO (08:15)
[2019-05-05] MEDS ORDERED: VENTAER INH (10:39)
[2019-05-05] MEDS ORDERED: COMBAER6 INH (10:39)
[2019-05-05] MEDS ORDERED: ALBU83IN NEB (10:39)
[2019-05-05] MEDS ORDERED: INCR1INH INH (10:39)
[2019-05-05] MEDS ORDERED: FLUT1INH3 INH (10:39)
[2019-05-07] MEDS ORDERED: AZIT-12 PO (08:34)
[2019-05-07] MEDS ORDERED: MUCI600T31 PO (08:34)
[2019-05-07] MEDS ORDERED: CEFD300CAP PO (08:34)
[2019-05-07] MEDS ORDERED: SORE15LO PO (08:34)
== END 2019-05-18 ==
LOC: M ONCR 10:38
PROVIDERS: ATTEND Radiology Radiation Oncology
DX: C34.92 Malignant neoplasm of unspecified part of left bronchus or lung (principal)

== ENCOUNTER 2019-05-05 08:01 | Inpatient (IN) | payer MEDICAID, OTHER ==
[~2019-05-05] VITALS: Ht 175.3 cm; Wt 64.9 kg
[~2019-05-05 08:01] MED LIST changes: +FLUC10TA PO
[2019-05-05] MEDS ORDERED: DEXA4TA PO (08:15)
[2019-05-05] MEDS ORDERED: FLUC100T PO (08:15)
[2019-05-05] MEDS ORDERED: ACETAMINOPHEN TAB 650MG DOSE (2X325MG) PO ONE (08:30)
[2019-05-05] MEDS ORDERED: IPRATROPIUM 0.5MG/ALBUTEROL 2.5MG INH SOL UD 3ML (DUONEB)(J7620) NEB PRN (08:30)
[2019-05-05 08:32] LABS: BASO % 0.3 % (0.0-1.0); EOS % 0.6 % (0.0-3.0); HEMATOCRIT 48.7 % (36.0-47.0); HEMOGLOBIN 15.9 g/dl (12.0-15.5); LYMPH % 2.7 % (24.0-44.0); MEAN CORPUSCULAR HEMOGLOBIN 30.8 pg (27.0-33.0); MEAN CORPUSCULAR HGB CONC 32.6 g/dl (32.0-36.5); MEAN CORPUSCULAR VOLUME 94.2 fl (80.0-96.0); MONO # 0.4 10^3/uL (0.0-0.8); MONO % 6.2 % (0.0-5.0); NEUTROPHILS % 88.9 % (36.0-66.0); PLATELET COUNT, AUTOMATED 134 10^3/uL (150-450); RED BLOOD COUNT 5.17 10^6/uL (4.00-5.40); WHITE BLOOD COUNT 6.8 10^3/uL (4.0-10.0)
[2019-05-05] MEDS ORDERED: methylPREDNISolone INJ 125 MG/2 ML VIAL (J2930) IV ONE (08:45)
[2019-05-05 08:55] LABS: BLOOD UREA NITROGEN 16 MG/DL (7-18); CALCIUM LEVEL 8.6 MG/DL (8.5-10.1); CARBON DIOXIDE LEVEL 26 MEQ/L (21-32); CHLORIDE LEVEL 95 MEQ/L (98-107); CK-MB VALUE MASS < 1.0 NG/ML (<3.6); CPK CREATINE PHOSPHOKINASE 20 U/L (26-192); CREATININE FOR GFR 0.97 MG/DL (0.55-1.30); GLOMERULAR FILTRATION RATE > 60.0 (>51); GLUCOSE, FASTING 126 MG/DL (70-100); POTASSIUM SERUM 3.8 MEQ/L (3.5-5.1); SODIUM LEVEL 131 MEQ/L (136-145); TROPONIN I < 0.02 NG/ML (< 0.10)
[2019-05-05] MEDS: FLUCONAZOLE 100 MG TAB PO SCH (09:00)
[2019-05-05] MEDS ORDERED: ISOVUE-370 76% 100ML VIAL (Q9967) As Ordered ONE (09:06)
[2019-05-05 09:11] LABS: LYMPH # 0.2 10^3/uL (1.5-5.0)
--- NOTE | 2019-05-05 10:09 | ECGEPIP ---
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
[2019-05-05] MEDS ORDERED: VENTAER INH (10:39)
[2019-05-05] MEDS ORDERED: FLUT1INH3 INH (10:39)
[2019-05-05] MEDS ORDERED: ALBU83IN NEB (10:39)
[2019-05-05] MEDS ORDERED: INCR1INH INH (10:39)
[2019-05-05] MEDS ORDERED: COMBAER6 INH (10:39)
--- NOTE | 2019-05-05 10:53 | REP ---
Portable chest x-ray: Two views. History: Dyspnea. Cough. Comparison study: January 13, 2019. Findings: EKG monitoring electrodes overlie the chest. A right-sided [id number] catheter is again noted in place. The lungs are hyperinflated. No new infiltrate is seen. Pleural angles are sharp. No significant bony abnormality. Impression: Hyperinflation consistent with COPD. No new infiltrate noted. Electronically Signed by Ozzie Walls MD 05/05/2019 08:41 A
[2019-05-05 11:24] VITALS: BP 125/91
--- NOTE | 2019-05-05 11:52 | REP ---
CT pulmonary angiogram: With IV contrast. History: Pleuritic chest pain. Rule out pulmonary embolus. Comparison studies: Comparison study January 13, 2019. Contrast dose: 75 mL of Isovue [address] technique: Helical scanning is acquired and overlapping 1.5 mm and contiguous 3 mm axial images are reformatted. In addition, maximum intensity projection and multiplanar re-formation images are generated in sagittal and coronal imaging projections. CT pulmonary angiographic findings: There is good opacification of the pulmonary arterial tree. There is no CT evidence of pulmonary embolism. No evidence of aortic dissection or aneurysm. There is no pleural or pericardial effusion visible. No hilar or mediastinal mass or adenopathy is observed. There is left coronary artery vascular calcification. There are multifocal early infiltrates with tree in bud type early infiltrate changes in the right upper lobe, right middle lobe, right lower lobe, lingula and left lower lobe. There is mild peribronchial cuffing consistent with bronchitis diffusely. There are emphysematous changes as previously noted. There is a right-sided Vqvwqk-M-Ummm catheter. No adrenal lesion is seen. Visualized upper abdominal structures are unremarkable. There is a small cyst in the left lobe of the liver. Bone window settings show no bony destructive lesion. Impression: No CT evidence of pulmonary embolus. There are early multifocal bilateral infiltrates superimposed on COPD. Mild diffuse bronchial wall thickening question bronchitis. Electronically Signed by Ozzie Walls MD 05/05/2019 12:34 P
[2019-05-05] MEDS: IPRATROPIUM 0.5MG/ALBUTEROL 2.5MG INH SOL UD 3ML (DUONEB)(J7620) NEB SCH ×5 (12:09→23:52)
[2019-05-05] MEDS: methylPREDNISolone INJ 40 MG/1 ML VIAL (J2920) IV SCH ×2 (13:20→22:19)
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
[2019-05-05 14:00] VITALS: BP 125/85
[2019-05-05] MEDS ORDERED: AZITHROMYCIN 250 MG TAB PO ONE (14:00)
[2019-05-05] MEDS: SODIUM CHLORIDE 0.9% INJ 10 ML SYR IV SCH (14:19)
[2019-05-05] MEDS: ENOXAPARIN 40 MG/0.4 ML SYRINGE (J1650) SC SCH (14:19)
[2019-05-05] MEDS: cefTRIAXone SOD 1 GM in D5W MINI-BAG PLUS 50 ML IV SCH (14:20)
[2019-05-05] MEDS: guaiFENesin DM LIQ 10ML UD PO PRN ×2 (14:20→22:20)
[2019-05-05] MEDS: CEPACOL LOZENGE PO PRN (18:16)
[2019-05-05] MEDS: ADVAIR HFA 230/21MCG INHALER INH SCH (18:29)
[2019-05-05 22:00] VITALS: BP 123/90
[2019-05-05] MEDS: guaiFENesin ER 600 MG TAB PO SCH (22:19)
[2019-05-05] MEDS: ACETAMINOPHEN 500 MG TAB PO PRN (22:20)
[2019-05-05] MEDS: SODIUM CHLORIDE 0.9% INJ 10 ML SYR IV PRN (22:20)
[2019-05-06] MEDS: IPRATROPIUM 0.5MG/ALBUTEROL 2.5MG INH SOL UD 3ML (DUONEB)(J7620) NEB SCH ×5 (03:26→18:55)
[2019-05-06] MEDS: guaiFENesin DM LIQ 10ML UD PO PRN ×2 (05:45→20:58)
[2019-05-06] MEDS: methylPREDNISolone INJ 40 MG/1 ML VIAL (J2920) IV SCH ×3 (05:45→20:57)
[2019-05-06] MEDS: SODIUM CHLORIDE 0.9% INJ 10 ML SYR IV PRN (05:46)
[2019-05-06 06:00] VITALS: BP 150/83
[2019-05-06 06:30] LABS: BASO % 0.2 % (0.0-1.0); HEMATOCRIT 45.4 % (36.0-47.0); HEMOGLOBIN 14.4 g/dl (12.0-15.5); LYMPH % 1.4 % (24.0-44.0); MEAN CORPUSCULAR HEMOGLOBIN 30.3 pg (27.0-33.0); MEAN CORPUSCULAR HGB CONC 31.7 g/dl (32.0-36.5); MEAN CORPUSCULAR VOLUME 95.4 fl (80.0-96.0); MONO # 0.3 10^3/uL (0.0-0.8); MONO % 2.6 % (0.0-5.0); NEUTROPHILS % 94.7 % (36.0-66.0); PLATELET COUNT, AUTOMATED 144 10^3/uL (150-450); RED BLOOD COUNT 4.76 10^6/uL (4.00-5.40); WHITE BLOOD COUNT 9.5 10^3/uL (4.0-10.0)
[2019-05-06 06:57] LABS: BLOOD UREA NITROGEN 16 MG/DL (7-18); CALCIUM LEVEL 8.7 MG/DL (8.5-10.1); CARBON DIOXIDE LEVEL 29 MEQ/L (21-32); CHLORIDE LEVEL 100 MEQ/L (98-107); CREATININE FOR GFR 0.82 MG/DL (0.55-1.30); GLOMERULAR FILTRATION RATE > 60.0 (>51); GLUCOSE, FASTING 152 MG/DL (70-100); POTASSIUM SERUM 4.1 MEQ/L (3.5-5.1); SODIUM LEVEL 135 MEQ/L (136-145)
[2019-05-06 07:04] VITALS: BP 140/88
[2019-05-06 07:26] LABS: LYMPH # 0.1 10^3/uL (1.5-5.0)
[2019-05-06] MEDS: ADVAIR HFA 230/21MCG INHALER INH SCH ×2 (07:44→18:56)
[2019-05-06] MEDS: AZITHROMYCIN 250 MG TAB PO SCH (09:27)
[2019-05-06] MEDS: ENOXAPARIN 40 MG/0.4 ML SYRINGE (J1650) SC SCH (09:27)
[2019-05-06] MEDS: FLUCONAZOLE 100 MG TAB PO SCH (09:27)
[2019-05-06] MEDS: guaiFENesin ER 600 MG TAB PO SCH ×2 (09:27→20:57)
[2019-05-06] MEDS: CEPACOL LOZENGE PO PRN (09:27)
[2019-05-06] MEDS: SODIUM CHLORIDE 0.9% INJ 10 ML SYR IV SCH (09:28)
[2019-05-06] MEDS: ACETAMINOPHEN 500 MG TAB PO PRN ×2 (09:31→20:58)
[2019-05-06 14:00] VITALS: BP 135/75
[2019-05-06] MEDS: cefTRIAXone SOD 1 GM in D5W MINI-BAG PLUS 50 ML IV SCH (14:27)
--- NOTE | 2019-05-06 14:48 | IPNPDOC ---
Subjective Date Seen The patient was seen on 05/06/19. Subjective Chief Complaint/HPI Complains of chest tightness. Says feels like cannot take in enough air. No fever or chills this am. No nausea or vomiting. No diarrhea. Objective Physical Examination General Exam: Positive: Alert, Cooperative, No Acute Distress ENT Exam: Positive: Atraumatic, Mucous membr. moist/pink, Pharynx Normal Neck Exam: Positive: Supple; Negative: JVD, thyromegaly Chest Exam: Positive: Clear to auscultation, Diminished Heart Exam: Positive: Rate Normal, Regular Rhythm, Normal S1, Normal S2; Negative: Murmurs, Rubs Telemetry: Positive: Sinus, Tachycardia Abdomen Exam: Positive: Normal bowel sounds, Soft; Negative: Tenderness, Hepatospenomegaly Extremity Exam: Positive: Normal pulses; Negative: Clubbing, Cyanosis, Edema Skin Exam: Negative: Nl turgor and temperature, Rash, Breakdown, Lesion, Pruritus, Other skin issue Neuro Exam: Positive: Normal Speech, Cranial Nerves 3-12 NL, Reflexes 2+ Psych Exam: Positive: Memory Intact, Oriented x 3 Assessment /Plan Assessment 59 year old female with PMH of small cell lung cancer s/p chemo therapy and radiation therapy and whole brain prophylactic radiation finished in april, COPD presented to the ED with 3 days increased of cough with greenish phlegm production with increased shortness of breath needing to use her nebs 5 times a day yesterday when normally does not need not use it everyday. She also had a fever or 100.4 at home and ED had a temperature of 100.9. Her resp panel was positive. Her CT angio of chest was negative for PE but did show features of bronchitis and bilateral infiltrates. She was admitted for Viral respiratory tract infection with viral vs bacterial pneumonia and COPD exacerbation. Viral respiratory tract infection RSV and Hines. will treat symptomatically Pneumonia and Bronchitis most probably viral however could have associated bacterial infection too. patient being immunocompromised recently finished RT and is on dexamethasone will cover with ceftriaxone and azithromycin. COPD exacerbation due to the above will continue with duonebs, advair, methyl prednisone. oxygen if needed Small cell lung cancer currently in remission. Oral thrush continue fluconazole Plan/VTE VTE Prophylaxis Ordered?: Yes VS, I&O, 24H, Fishbone Vital Signs/I&O Vital Signs Date Time Temp Pulse Resp B/P (MAP) Pulse Ox O2 Delivery O2 Flow Rate FiO2 05/06/19 14:00 97.6 122 15 135/75 (95) 96 Nasal Cannula 2.0 I&O- Last 24 Hours up to 6 AM 05/06/19 06:00 Intake Total 1100 ml Output Total 1275 ml Balance -175 ml Laboratory Data 24H LABS Laboratory Tests 2 05/06/19 06:14: Immature Granulocyte % (Auto) 1.1, Neutrophils (%) (Auto) 94.7H, Lymphocytes (%) (Auto) 1.4L, Monocytes (%) (Auto) 2.6, Eosinophils (%) (Auto) 0.0, Basophils (%) (Auto) 0.2, Neutrophils # (Auto) 9.0H, Lymphocytes # (Auto) 0.1L, Monocytes # (Auto) 0.3, Eosinophils # (Auto) 0.0, Basophils # (Auto) 0.0, Nucleated Red Blood Cells % (auto) 0.0, Anion Gap 6L, Glomerular Filtration Rate > 60.0, Ca lcium Level 8.7 CBC/BMP Laboratory Tests 05/06/19 06:14 Microbiology Microbiology 05/05/19 Blood Culture - Preliminary, Resulted No growth after 24 hours . All specim... 05/05/19 Respiratory Virus Panel (PCR) ([facility]) - Final, Complete Coronavirus Hku1 Respiratory Syncytial Virus 05/05/19 Blood Culture - Preliminary, Resulted No growth after 24 hours . All specim... BLANCA ESPAÑA MD May 06, 2019 14:48
[2019-05-06 22:00] VITALS: BP 136/77
[2019-05-07] MEDS: IPRATROPIUM 0.5MG/ALBUTEROL 2.5MG INH SOL UD 3ML (DUONEB)(J7620) NEB SCH ×4 (00:08→11:09)
[2019-05-07] MEDS: methylPREDNISolone INJ 40 MG/1 ML VIAL (J2920) IV SCH (05:48)
[2019-05-07] MEDS: SODIUM CHLORIDE 0.9% INJ 10 ML SYR IV PRN (05:49)
[2019-05-07 06:00] VITALS: BP 134/63
[2019-05-07 06:39] LABS: BASO % 0.2 % (0.0-1.0); HEMATOCRIT 39.8 % (36.0-47.0); HEMOGLOBIN 13.2 g/dl (12.0-15.5); LYMPH % 0.8 % (24.0-44.0); MEAN CORPUSCULAR HEMOGLOBIN 31.6 pg (27.0-33.0); MEAN CORPUSCULAR HGB CONC 33.2 g/dl (32.0-36.5); MEAN CORPUSCULAR VOLUME 95.2 fl (80.0-96.0); MONO # 0.4 10^3/uL (0.0-0.8); MONO % 2.9 % (0.0-5.0); NEUTROPHILS # 11.4 10^3/uL (1.5-8.5); NEUTROPHILS % 95.1 % (36.0-66.0); PLATELET COUNT, AUTOMATED 142 10^3/uL (150-450); RED BLOOD COUNT 4.18 10^6/uL (4.00-5.40)
[2019-05-07 07:06] LABS: LYMPH # 0.1 10^3/uL (1.5-5.0)
[2019-05-07 07:21] LABS: BLOOD UREA NITROGEN 22 MG/DL (7-18); CALCIUM LEVEL 8.7 MG/DL (8.5-10.1); CARBON DIOXIDE LEVEL 28 MEQ/L (21-32); CHLORIDE LEVEL 102 MEQ/L (98-107); CREATININE FOR GFR 0.75 MG/DL (0.55-1.30); GLOMERULAR FILTRATION RATE > 60.0 (>51); GLUCOSE, FASTING 113 MG/DL (70-100); POTASSIUM SERUM 4.2 MEQ/L (3.5-5.1); SODIUM LEVEL 136 MEQ/L (136-145)
[2019-05-07] MEDS: ADVAIR HFA 230/21MCG INHALER INH SCH (07:44)
[2019-05-07] MEDS: FLUCONAZOLE 100 MG TAB PO SCH (08:23)
[2019-05-07] MEDS: ENOXAPARIN 40 MG/0.4 ML SYRINGE (J1650) SC SCH (08:23)
[2019-05-07] MEDS: AZITHROMYCIN 250 MG TAB PO SCH (08:23)
[2019-05-07] MEDS: guaiFENesin ER 600 MG TAB PO SCH (08:23)
[2019-05-07] MEDS ORDERED: CEFD300CAP PO (08:34)
[2019-05-07] MEDS ORDERED: AZIT-12 PO (08:34)
[2019-05-07] MEDS ORDERED: SORE15LO PO (08:34)
[2019-05-07] MEDS ORDERED: MUCI600T31 PO (08:34)
[2019-05-07] MEDS ORDERED: FLUBLOK(EGG FREE)(QUAD)INFLUENZA VACC 0.5ML SYRINGE (90682)18YRS&OLDER IM ONE (09:00)
[2019-05-07] MEDS ORDERED: cefTRIAXone SOD 1 GM in D5W MINI-BAG PLUS 50 ML IV ONE (09:00)
[2019-05-07] MEDS: SODIUM CHLORIDE 0.9% INJ 10 ML SYR IV SCH (09:24)
--- NOTE | 2019-05-07 23:04 | DS.PDOC ---
Discharge Summary General Date of Admission May 05, 2019 at 10:54 Date of Discharge 05/07/19 Discharge Summary PROCEDURES PERFORMED DURING STAY: [None]. DISCHARGE DIAGNOSES: Viral respiratory tract infection by RSV and Hines. COPD exacerbation Acute bronchitis an pneumonia viral. Small cell lung cancer at present in remission Oral thrush COMPLICATIONS/CHIEF COMPLAINT: Copd Exacerbation. HISTORY OF PRESENT ILLNESS: See history and physical HOSPITAL COURSE: 59 year old female with PMH of small cell lung cancer s/p chemo therapy and radiation therapy and whole brain prophylactic radiation finished in april, COPD presented to the ED with 3 days increased of cough with greenish phlegm production with increased shortness of breath needing to use her nebs 5 times a day yesterday when normally does not need not use it everyday. She also had a fever or 100.4 at home and ED had a temperature of 100.9. Her resp panel was positive. Her CT angio of chest was negative for PE but did show features of bronchitis and bilateral infiltrates. She was admitted for Viral respiratory tract infection with viral vs bacterial pneumonia and COPD exacerbation. Viral respiratory tract infection RSV and Hines. will treat symptomatically Pneumonia and Bronchitis most probably viral however could have associated bacterial infection too. patient being immunocompromised recently finished RT and is on dexamethasone will cover with ceftriaxone and azithromycin. COPD exacerbation due to the above will continue with duonebs, advair, methyl prednisone. oxygen if needed Small cell lung cancer currently in remission. Oral thrush continue fluconazole DISCHARGE MEDICATIONS: Please see below. ALLERGIES: Please see below. PHYSICAL EXAMINATION ON DISCHARGE: VITAL SIGNS: Please see below. General Exam: Positive: Alert, Cooperative, No Acute Distress ENT Exam: Positive: Atraumatic, Mucous membr. moist/pink, Pharynx Normal Neck Exam: Positive: Supple; Negative: JVD, thyromegaly Chest Exam: Positive: Clear to auscultation, Diminished Heart Exam: Positive: Rate Normal, Regular Rhythm, Normal S1, Normal S2; Negative: Murmurs, Rubs Telemetry: Positive: Sinus, Tachycardia Abdomen Exam: Positive: Normal bowel sounds, Soft; Negative: Tenderness, Hepatospenomegaly Extremity Exam: Positive: Normal pulses; Negative: Clubbing, Cyanosis, Edema Skin Exam: Negative: Nl turgor and temperature, Rash, Breakdown, Lesion, Pruritus, Other skin issue Neuro Exam: Positive: Normal Speech, Cranial Nerves 3-12 NL, Reflexes 2+ Psych Exam: Positive: Memory Intact, Oriented x 3 LABORATORY DATA: Please see below. ACTIVITY: [As tolerated]. DIET: As tolerated DISPOSITION: 01 Home, Self-Care. DISCHARGE INSTRUCTIONS: Follow up PMD in 1 weeK DISCHARGE CONDITION: [Stable]. TIME SPENT ON DISCHARGE: 35 minutes. Vital Signs/I&Os Vital Signs Date Time Temp Pulse Resp B/P (MAP) Pulse Ox O2 Delivery O2 Flow Rate FiO2 05/07/19 09:00 2.0 05/07/19 06:00 97.7 99 18 134/63 (86) 96 Nasal Cannula I&O- Last 24 Hours up to 6 AM 05/07/19 06:00 Intake Total 1555 ml Output Total 1400 ml Balance 155 ml Laboratory Data Labs 24H Laboratory Tests 2 05/07/19 05:58: Immature Granulocyte % (Auto) 1.0, Neutrophils (%) (Auto) 95.1H, Lymphocytes (%) (Auto) 0.8L, Monocytes (%) (Auto) 2.9, Eosinophils (%) (Auto) 0.0, Basophils (%) (Auto) 0.2, Neutrophils # (Auto) 11.4H, Lymphocytes # (Auto) 0.1L, Monocytes # (Auto) 0.4, Eosinophils # (Auto) 0.0, Basophils # (Auto) 0.0, Nucleated Red Blood Cells % (auto) 0.0, Anion Gap 6L, Glomerular Filtration Rate > 60.0, Calcium Level 8.7 CBC/BMP Laboratory Tests 05/07/19 05:58 Microbiology Microbiology 05/05/19 Blood Culture - Preliminary, Resulted No Growth after 48 hours. All Specime... 05/05/19 Respiratory Virus Panel (PCR) ([facility]) - Final, Complete Coronavirus Hku1 Respiratory Syncytial Virus 05/05/19 Blood Culture - Preliminary, Resulted No Growth after 48 hours. All Specime... Discharge Medications Scheduled Azithromycin (Azithromycin) 250 Mg Tablet, 500 MG PO DAILY Cefdinir (Cefdinir) 300 Mg Capsule, 1 CAP PO BID Dexamethasone (Dexamethasone) 4 Mg Tablet, 2 MG PO DAILY, (Reported) Fluconazole (Fluconazole) 100 Mg Tablet, 100 MG PO DAILY, (Reported) Fluticasone Propion/Salmeterol (Fluticasone-Salmeterol 232-14) 1 Each Aer.pow.ba, 1 PUFF INH BID, (Reported) Guaifenesin (Mucinex) 600 Mg Tab.er.12h, 600 MG PO BID Umeclidinium [place] (Incruse Ellipta) 62.5 Mcg Blst.w.dev, 1 PUFF INH DAILY, (Reported) Scheduled PRN Acetaminophen (Acetaminophen) 500 Mg Tablet, 1,000 MG PO TID PRN for PAIN, (Reported) Albuterol Sulf (Albuterol Sulfate) 2.5 Mg/3 Ml Vial.neb, 1 VIAL NEB Q4H PRN for SOB/WHEEZING, (Reported) Albuterol Sulfate (Ventolin Hfa) 18 Gm Hfa.aer.ad, 2 PUFF INH Q4H PRN for wheezing, (Reported) Benzocaine/Menthol (Sore Throat Lozenge) 1 Each Lozenge, 1 CONNER PO Q4HP PRN for COUGH Ipratropium/Albuterol Sulfate (Combivent Respimat 20-100 Mcg) 4 Gm Mist.inhal, 1 PUFF INH QID PRN for SOB/WHEEZING, (Reported) Allergies Coded Allergies: No Known Allergies (Verified , 07/29/17) BLANCA ESPAÑA MD May 07, 2019 23:04
== END 2019-05-07 11:45 | disposition home or self-care (01) | DRG 140 ==
LOC: M ED 08:01 → M ED INP 10:54 → ENRESERV 11:04 → M MSPAV 11:33
PROVIDERS: ADMIT Internal Medicine Nephrology; ATTEND Internal Medicine Nephrology
DX: J44.0 Chronic obstructive pulmonary disease with (acute) lower respiratory infection (principal); J12.1 Respiratory syncytial virus pneumonia; B37.0 Candidal stomatitis; N39.41 Urge incontinence; J44.1 Chronic obstructive pulmonary disease with (acute) exacerbation; J20.5 Acute bronchitis due to respiratory syncytial virus; B18.2 Chronic viral hepatitis C; Z92.21 Personal history of antineoplastic chemotherapy; Z92.3 Personal history of irradiation; Z85.118 Personal history of other malignant neoplasm of bronchus and lung; Z87.891 Personal history of nicotine dependence; Z79.899 Other long term (current) drug therapy

== ENCOUNTER → 2019-05-17 | Outpatient (CLI) | payer MEDICAID, OTHER ==
[~2019-05-17] MED LIST changes: +AZIT-12 PO; +CEFD300CAP PO; +FLUC100T PO; +FLUT1INH3 INH; +INCR1INH INH; +MUCI600T31 PO; +SORE15LO PO
--- NOTE | 2019-05-17 11:39 | REP ---
BILATERAL SCREENING DIGITAL MAMMOGRAM WITH 3D TOMOSYNTHESIS: There are no palpable abnormalities or other breast complaints. The the patient states she had a clinical breast examination April,. The Tyrer-Cuzick Score is: 5.9% . Comparison is the 01/11/2014. There are scattered areas of fibroglandular density. There is no dominant mass, micro calcific cluster or architectural distortion that would indicate malignancy. There are no additional findings on 3D tomosynthesiss. There is no change from the prior study. Impression: BIRADS/ACR category 1 mammogram. Negative. Recommendation: Routine annual screening mammography. This mammogram was interpreted with the aid of a FDA approved computer-aided detection system. A. Negative mammogram reports should not delay biopsy if a dominant or clinically suspicious mass is present. B. Not all breast cancers are identified by mammography or tomosynthesis. C. Adenosis and dense breasts may obscure an underlying neoplasm. Patient letter M1. Electronically Signed by Albert Alex MD 05/17/2019 11:30 A
== END ==
LOC: M WHC 10:08
PROVIDERS: ATTEND Nurse Practitioner Women's Health
DX: Z12.4 Encounter for screening for malignant neoplasm of cervix (principal); Z12.31 Encounter for screening mammogram for malignant neoplasm of breast; N89.8 Other specified noninflammatory disorders of vagina

== ENCOUNTER → 2019-05-23 | Outpatient (CLI) | payer MEDICAID, OTHER ==
--- NOTE | 2019-05-23 14:21 | RADONC ---
RADIATION ONCOLOGY FOLLOWUP NOTE DATE: 05/23/2019 CHART NUMBER: [id number] DIAGNOSIS: Small cell lung carcinoma. STAGE: Limited. ECOG PERFORMANCE STATUS: 0 FOLLOWUP NOTE: Ms. Smith is a very pleasant 59-year-old white female with the diagnosis of limited stage small-cell lung carcinoma who is presenting to us today for routine followup visit 1 month post completion of prophylactic cranial irradiation. The patient presents today with a slew of some complaints. She is still on Decadron, but has been tapering off. She has significant emotional mood swings, going from elation to breaking down crying. She reports that she feels pressure in her head and some rash-like skin issues. She feels jittery. REVIEW OF SYSTEMS: The patient's review of systems is negative for nausea, vomiting, fevers, chills, night sweats, diplopia, bone pain, shortness of breath or other problems other than above. PHYSICAL EXAMINATION: The patient is a well-developed, well-nourished white female in no acute distress. HEENT exam is normocephalic, atraumatic. Extraocular movements are intact. There is no palpable cervical, supraclavicular, infraclavicular, axillary, or inguinal lymphadenopathy present. Lungs are clear to auscultation and percussion. Heart has a regular rate and rhythm. Abdomen is benign with no hepatosplenomegaly, masses, or tenderness. Skeletal examination reveals no tenderness to pressure or percussion of the bony skeleton. Extremities reveal no clubbing, cyanosis, or edema. Neurologic exam is grossly intact, as is the remainder of the physical examination. ASSESSMENT: The patient is clinically doing well at this point. She is continuing with her Decadron taper and has only 2 days left on half of a 4 mg pill a day. I explained to the patient that Decadron is known to cause emotional mood swings and this should calm down. I also explained to the patient that radiation symptoms can peak 7-10 days after the last treatment, and she is only now on the road to recovering. I reassured her that I suspect once she is off the Decadron and gives it a few more weeks, she will begin to return to normal with regards to her mental issues. In the meantime, she is continuing her close followup and is scheduled to undergo full scanning with her medical oncologist. I asked the patient what medications she is taking at this point which may explain some of for itchiness and rash other than the Decadron. The patient did not remember any of her medications. I asked her to review those and discuss this with her prescribing doctors to see whether or not they may be causing her any issues and if they are necessary. In the meantime I have scheduled the patient to return to me in 3 months. Once again, I have given her the conclusion of her Decadron taper schedule which will finish in two days. cc: MD Ben Forrester MD
== END ==
LOC: M ONCR 10:23
PROVIDERS: ATTEND Radiology Radiation Oncology
DX: C34.92 Malignant neoplasm of unspecified part of left bronchus or lung (principal)

== ENCOUNTER → 2019-05-24 | Outpatient (CLI) | payer MEDICAID, OTHER ==
[~2019-05-24] MED LIST changes: +GASTROGRAFIN SOLUTION 30ML (Q9963) As Ordered ONE; +ISOVUE-370 76% 100ML VIAL (Q9967) As Ordered ONE
--- NOTE | 2019-05-24 13:29 | REP ---
CT of the chest with IV contrast for surveillance. The patient has history of small cell lung carcinoma. Comparisons are 12/07/2018 and 05/05/2019. The tree in bud pattern suggestive of pneumonitis on 05/05/2019 affecting all lobes of both lungs has resolved. There are no lung masses or nodules. There is a linear stranding density extending anteriorly from the left hilus into the left upper lobe as an interval change. The is nonspecific and could represent ensuing parenchymal scarring and could represent an acute subsegmental infiltrate. There is chronic linear stranding anteriorly in the left lower lobe, unchanged from both prior studies, compatible with parenchymal scarring. There are no pleural effusions. There are scattered bulla throughout the lung mora bilaterally, unchanged. There is no mediastinal, hilar or axillary lymphadenopathy. This is unchanged from both prior studies. The thoracic aorta is unremarkable. The cardiac size is normal. There is no pericardial effusion. Impression: There is chronic linear scarring extending from the left hilus in to the left lower lobe anteriorly, unchanged from both prior studies. There is a new stranding linear density extending from the left hilus anteriorly in the left upper lobe, not present previously. This could represent ensuing scarring or acute infiltrate. There are scattered small bulla throughout the lung mora bilaterally, unchanged. There are no nodules or masses. There are no infiltrates or effusions. There is no adenopathy. There are no lytic, blastic or destructive skeletal changes. Electronically Signed by Albert Alex MD 05/24/2019 01:20 P
--- NOTE | 2019-05-24 13:39 | REP ---
CT of the abdomen and pelvis with IV and oral contrast, multiphase imaging for small cell lung carcinoma surveillance: Comparison is 01/09/2019. The studies performed contiguously with the chest CT this same date. There is a small 8 ml cyst subcapsular anteriorly in the left lobe of the liver, unchanged. The hepatic parenchyma is otherwise homogeneous and unchanged. The gallbladder, pancreas and spleen are normal size and unremarkable. The adrenals and kidneys are unremarkable. The abdominal aorta is unremarkable. There is no periaortic adenopathy or mass. There is no mesenteric adenopathy or ascites. There is no bowel distension or obstruction. The mild c sigmoid colon wall thickening previously is no longer present. The pelvis: The uterus, adnexa and bladder are unremarkable. There is no ascites. Impression: There is no pelvic or abdominal mass, adenopathy or ascites. The mild sigmoid colon wall thickening on the prior study is no longer present. There is a tiny, unchanged. Hepatic cyst. There are no lytic, blastic or destructive skeletal changes. There is advanced degenerative disc disease at L5 S1. Electronically Signed by Albert Alex MD 05/24/2019 01:31 P
== END ==
LOC: M RAD 10:55
PROVIDERS: ATTEND Internal Medicine Medical Oncology
DX: C34.90 Malignant neoplasm of unspecified part of unspecified bronchus or lung (principal)
CPT/HCPCS: 71260; 74177; Q9963; Q9967

== ENCOUNTER 2019-06-15 16:19 | Emergency (ER) | payer OTHER ==
[~2019-06-15] VITALS: Ht 175.3 cm; Wt 65.3 kg
[~2019-06-15 16:19] MED LIST changes: -GASTROGRAFIN SOLUTION 30ML (Q9963) As Ordered ONE; -ISOVUE-370 76% 100ML VIAL (Q9967) As Ordered ONE
[2019-06-15] MEDS ORDERED: KETOROLAC 30 MG/ML VIAL (J1885) IV ONE (17:15)
[2019-06-15] MEDS ORDERED: ONDANSETRON 4MG/2ML VIAL (J2405) IV ONE (17:15)
[2019-06-15] MEDS ORDERED: NS 1,000 ML IV ONE (17:15)
[2019-06-15 17:59] LABS: BASO % 0.7 % (0.0-1.0); EOS # 0.1 10^3/uL (0.0-0.5); EOS % 2.1 % (0.0-3.0); HEMATOCRIT 38.5 % (36.0-47.0); HEMOGLOBIN 12.5 g/dl (12.0-15.5); LYMPH # 0.6 10^3/uL (1.5-5.0); MEAN CORPUSCULAR HEMOGLOBIN 31.5 pg (27.0-33.0); MEAN CORPUSCULAR HGB CONC 32.5 g/dl (32.0-36.5); MONO # 1.2 10^3/uL (0.0-0.8); NEUTROPHILS # 3.7 10^3/uL (1.5-8.5); NEUTROPHILS % 64.5 % (36.0-66.0); PLATELET COUNT, AUTOMATED 280 10^3/uL (150-450); RED BLOOD COUNT 3.97 10^6/uL (4.00-5.40); WHITE BLOOD COUNT 5.8 10^3/uL (4.0-10.0)
[2019-06-15 18:25] LABS: ALBUMIN 3.4 GM/DL (3.2-5.2); ALT/SGPT 7 U/L (12-78); BILIRUBIN,DIRECT < 0.1 MG/DL (0.0-0.2); BILIRUBIN,TOTAL 0.2 MG/DL (0.2-1.0); CK-MB VALUE MASS < 1.0 NG/ML (<3.6); CPK CREATINE PHOSPHOKINASE 26 U/L (26-192); LIPASE 102 U/L (73-393); MB/CK RELATIVE INDEX 3.85 (< OR =4); TOTAL PROTEIN 6.4 GM/DL (6.4-8.2); TROPONIN I 0.03 NG/ML (< 0.10)
--- NOTE | 2019-06-15 18:50 | REPVR ---
PROCEDURE INFORMATION: Exam: US Abdomen Limited, Right Upper Quadrant Exam date and time: 06/15/2019 6:02 PM Age: 59 years old Clinical indication: Abdominal pain; Generalized TECHNIQUE: Imaging protocol: Real-time ultrasound of the abdomen with image documentation. Examination was focused on the right upper quadrant. COMPARISON: PT PET/CT Skull/mid thigh 02/27/2019 11:21 AM FINDINGS: Liver: 7 x 5 x 8 mm hypoattenuating anechoic structure in the superficial aspect of the left lobe of the liver. Finding not well characterized on this patient with poor acoustic characteristics including a large amount of subcutaneous fat overlying the lesion. Although a cyst is possible further evaluation with MRI suggested. Gallbladder: Normal. No gallstones. There is no gallbladder wall thickening. Common bile duct: The common bile duct measures 7.1 mm. No mass or choledocholithiasis. No significant intrahepatic biliary dilatation. Pancreas: Pancreatic duct visible measuring up to 2 mm, not significantly dilated. Right kidney: Right kidney measures 9.6 x 4.8 x 3.9 cm. IMPRESSION: 1. The common bile duct measures 7.1 mm. No mass or choledocholithiasis. No significant intrahepatic biliary dilatation. 2. 7 x 5 x 8 mm hypoattenuating anechoic structure in the superficial aspect of the left lobe of the liver. Finding not well characterized on this patient with poor acoustic characteristics. Although a cyst is possible further evaluation with MRI suggested. Electronically signed by: Sundar Damon On 06/15/2019 18:49:50 PM
--- NOTE | 2019-06-15 18:52 | REP ---
CHEST, TWO VIEWS: COMPARISON: CT 05/24/2019 and radiograph 05/05/2019. Scattered interstitial opacities bilaterally are stable. These are somewhat more concentrated in the anterior aspect of the left upper lobe. No new abnormal lung opacities are seen. There is no consolidation. The heart is normal in size. There is calcification of the thoracic aorta. The mediastinal silhouette is unchanged. There is a right central venous catheter again seen. There are mild degenerative changes of the spine. IMPRESSION: Stable chronic changes. Electronically Signed by Albert Singer MD 06/15/2019 07:17 P
[2019-06-15] MEDS ORDERED: ONDA8TAB8 PO (19:25)
[2019-06-15 19:54] VITALS: BP 157/77
--- NOTE | 2019-06-16 07:22 | ECGEPIP ---
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 CLINICAL CORRELATION Electronically Signed on 06-16-2019 7:21:45 EST by Romina Mendez
--- NOTE | 2019-06-18 09:56 | ED PDOC ---
Post-Departure Follow-Up dr garrison and dr templeton faxed formal report of us for fu Vinay Cox MD Jun 18, 2019 09:56
== END 2019-06-15 19:58 | disposition home or self-care (01) ==
LOC: M ED 16:19
DX: R93.2 Abnormal findings on diagnostic imaging of liver and biliary tract (principal); K76.89 Other specified diseases of liver; R10.9 Unspecified abdominal pain; R11.2 Nausea with vomiting, unspecified; R19.7 Diarrhea, unspecified; J44.9 Chronic obstructive pulmonary disease, unspecified; C34.90 Malignant neoplasm of unspecified part of unspecified bronchus or lung; Z79.899 Other long term (current) drug therapy; F17.210 Nicotine dependence, cigarettes, uncomplicated
CPT/HCPCS: 36415; 71046; 76705; 80047; 80076; 82550; 82553; 83690; 85025; 93005; 96361; 96374; 96375; 99284; J1885; J2405

== ENCOUNTER → 2019-06-21 | Outpatient (REF) | payer OTHER ==
[~2019-06-21] MED LIST changes: +ONDA8TAB8 PO
== END ==
LOC: M LAB REF 10:48
PROVIDERS: ATTEND Physician Assistant
DX: R19.7 Diarrhea, unspecified (principal)

== ENCOUNTER → 2019-06-26 | Outpatient (CLI) | payer OTHER ==
[~2019-06-26] MED LIST changes: +OMEP10CASR PO; +PROHANCE 279.3MG/ML 15ML VIAL (A9576) As Ordered ONE
--- NOTE | 2019-06-26 18:02 | REPVR ---
PROCEDURE INFORMATION: Exam: MR Head Without and With Contrast Exam date and time: 06/26/2019 5:02 PM Age: 59 years old Clinical indication: Condition or disease; History of cancer (specify primary cancer site): ; Patient HX: HX lung CA, nausea, h/a; Additional info: Sclc, nausea, diarhhea TECHNIQUE: Imaging protocol: MR of the head without and with intravenous contrast. Contrast material: PROHANCE; Contrast volume: 12 ml; Contrast route: 22G; COMPARISON: MRI-Brain W/O FOLL BY WITH 01/12/2019 5:14 PM FINDINGS: Limitations: Motion artifact limits this study. Brain: In the right subinsular region, there is a peripherally enhancing lesion measuring the 2.0 x 0.9 x 1.5 cm, with adjacent FLAIR hyperintense edema. An additional enhancing subcentimeter lesion is identified within the right frontal periventricular region. These findings are concerning for metastatic disease, and new compared to the prior study. These lesions demonstrate peripheral hyperintensity on diffusion. Scattered additional foci of restricted diffusion are identified the within the bilateral cerebral hemispheres, concerning for acute/subacute infarcts. There is no abnormal enhancement of these additional foci. Additional moderate patchy FLAIR hyperintensity is visualized within the cerebral white matter, with additional foci within the left basal ganglia and luis. There is no mass effect or restricted diffusion associated with these findings. In a patient this age, this likely represents chronic small vessel ischemic disease. Post radiation changes are within the differential. Ventricles: No ventriculomegaly. Bones/joints: See Mastoid Air Cells Finding. Soft tissues: Unremarkable, as visualized. Sinuses: Mucosal thickening of the right sphenoid sinus and scattered ethmoid air cells. A mucous retention cyst or polyp is identified in the left maxillary sinus. Mastoid air cells: Mucosal thickening/effusions within the mastoid air cells, left side greater than right. Retained fluid is identified with pneumatized left petrous apex cells. Orbits: Evaluation of the orbits is limited by motion artifact. IMPRESSION: 1. In the right subinsular region, there is a peripherally enhancing lesion measuring the 2.0 x 0.9 x 1.5 cm, with adjacent edema. An additional enhancing subcentimeter lesion is identified within the right frontal periventricular region. These findings are concerning for metastatic disease, and new compared to the prior study. 2. Scattered additional foci of restricted diffusion are identified the within the bilateral cerebral hemispheres, concerning for acute/subacute infarcts. There is no abnormal enhancement of these additional foci. 3. Additional moderate patchy FLAIR hyperintensity is visualized within the cerebral white matter, with additional foci within the left basal ganglia and luis. In a patient this age, this likely represents chronic small vessel ischemic disease. Post radiation changes are within the differential. 4. Mucosal thickening/effusions within the mastoid air cells, left side greater than right. Retained fluid is identified with pneumatized left petrous apex cells. 5. Paranasal sinus disease. Electronically signed by: Omar Moyer On 06/26/2019 18:02:16 PM
== END ==
LOC: M RAD 15:08
PROVIDERS: ATTEND Internal Medicine Medical Oncology
DX: R93.0 Abnormal findings on diagnostic imaging of skull and head, not elsewhere classified (principal); I25.9 Chronic ischemic heart disease, unspecified; J01.90 Acute sinusitis, unspecified; C34.90 Malignant neoplasm of unspecified part of unspecified bronchus or lung; Z92.3 Personal history of irradiation
CPT/HCPCS: 70553; A9576

== ENCOUNTER → 2019-06-27 | Outpatient (CLI) | payer OTHER ==
[~2019-06-27] MED LIST changes: +GASTROGRAFIN SOLUTION 30ML (Q9963) As Ordered ONE; +ISOVUE-370 76% 100ML VIAL (Q9967) As Ordered ONE; -PROHANCE 279.3MG/ML 15ML VIAL (A9576) As Ordered ONE
--- NOTE | 2019-06-27 15:45 | REP ---
REASON FOR EXAM: History of nausea and diarrhea. Patient also has a history of small cell carcinoma of the lung. Comparison examination is 05/24/2019. CONTRAST: 100 mL Isovue 370. The lung bases are unchanged. There is a slight pericardial effusion which has developed since the last exam. The liver, gallbladder, spleen, pancreas, adrenal glands, and kidneys are unchanged. The abdominal aorta and paraaortic regions are unchanged. No intra-abdominal or retroperitoneal mass or adenopathy has developed. There is no free fluid or free air. The bowel loops and their mesenteries are within normal limits. There is no free fluid or free air. CT PELVIS: The bowel loops and their mesenteries are within normal limits. There is no evidence of a mass or adenopathy. There is no free fluid or free air. Bone window technique throughout the examination shows no significant change in the appearance of the osseous structures. IMPRESSION: 1. A slight pericardial effusion has developed since the last exam. 2. There is no evidence of acute intra-abdominal or intrapelvic disease. Findings as described above. Electronically Signed by Taj Reyes DO 06/27/2019 03:52 P
== END ==
LOC: M RAD 12:54
PROVIDERS: ATTEND Internal Medicine Medical Oncology
DX: I31.3 Pericardial effusion (noninflammatory) (principal); C34.90 Malignant neoplasm of unspecified part of unspecified bronchus or lung
CPT/HCPCS: 74177; Q9963; Q9967

== ENCOUNTER → 2019-06-29 | Outpatient (CLI) | payer OTHER ==
[~2019-06-29] MED LIST changes: -GASTROGRAFIN SOLUTION 30ML (Q9963) As Ordered ONE; -ISOVUE-370 76% 100ML VIAL (Q9967) As Ordered ONE
--- NOTE | 2019-06-29 12:13 | REP ---
Bilateral carotid artery duplex ultrasound: Peak flow velocity analysis: RIGHT LEFT ICA Peak flow velocity cm/sec 60.5 m/sec 64.3 cm/sec ICA Diastolic flow velocity cm/sec 20.5 cm/sec 26.4 cm/sec ICA/CCA Ratio 0.95 cm/sec 0.94 cm/sec ECA Peak flow velocity cm/sec 98.3 cm/sec 114.4 cm/sec CCA Peak flow velocity cm/sec 76.1 cm/sec 81.5.cm/sec There is moderate atheromatous plaque diffusely extending from the distal common carotid arteries into the bulbs and into the internal carotid arteries and external carotid arteries bilaterally. The peak flow velocities are normal bilaterally. There is no stenosis on the right on the left. There is antegrade flow in the vertebral arteries bilaterally. Electronically Signed by Albert Alex MD 06/29/2019 12:05 P
--- NOTE | 2019-06-29 14:42 | REP ---
REASON: History of carcinoma of the lung, assess for skeletal metastasis. PRIORS: None. After the intravenous administration of 22.0 mCi of technetium-99m MDP a total body bone scan was obtained. There is diffuse increased radionuclide accumulation in each femoral head without definite focality. Patchy type increased radionuclide accumulation is seen in the shoulders and knees. Mild patchy increased radionuclide accumulation is seen in the ankles and feet. IMPRESSION: Degenerative type uptake pattern as described above. There is no compelling evidence for metastatic disease. Electronically Signed by Taj Reyes DO 06/29/2019 03:43 P
--- NOTE | 2019-06-30 13:02 | ECHO ---
DATE OF PROCEDURE: 06/29/2019 REFERRING PROVIDER: Dr. Christine Priest LOCATION: Outpatient. REASON FOR STUDY: Lung cancer, chest pain. 2D MEASUREMENTS: IVS: 0.9 cm LV: 5.0 cm LVPW: 1.0 cm LA: 3.0 cm Aorta: 3.1 cm RV: 2.4 cm IVC: 2.1 cm DOPPLER MEASUREMENTS: Peak velocity across the aortic valve: 1.4 m/s Peak velocity across the LVOT: 0.9 m/s Peak gradient across the aortic valve: 8 mmHg Mitral E: 0.55, Mitral A: 0.86 with a ratio of 0.6 Maximum tricuspid valve velocity: 2.3 m/s 2D COMMENTS: 1. Normal left ventricular size, wall thickness and normal global left ventricular systolic function. The estimated left ventricular systolic ejection fraction is 55 to 60%. 2. Normal left atrium. Normal right atrium and right ventricle. 3. The atrial septum appeared to be normal without evidence of defect or shunt. 4. Normal aortic root. 5. Trace pericardial effusion noted. No evidence of cardiac tamponade. 6. Mildly calcified aortic valve with normal leaflet excursion. Normal mitral valve, tricuspid valve, and pulmonic valve. The proximal pulmonary artery branches also appear to be normal. 7. The inferior vena cava was mildly enlarged. Central venous pressure is mildly elevated. DOPPLER: It detects mild aortic regurgitation, mild mitral regurgitation and mild tricuspid regurgitation. The calculated pulmonary artery systolic pressure varies between 30-40 mmHg. Abnormal relaxation pattern was noted across the mitral valve leaflets, and the mitral valve annulus consistent with features of grade 1 left ventricular diastolic dysfunction. IMPRESSION: 1. Normal global left ventricular systolic function. There were features of left ventricular diastolic dysfunction manifested by abnormal relaxation, grade 1. 2. Aortic valve sclerosis with mild aortic regurgitation but no aortic stenosis. 3. Mild mitral regurgitation. 4. Mild tricuspid regurgitation with probably mild pulmonary hypertension. 5. Trace pericardial effusion noted, no evidence of cardiac tamponade. 6. Global longitudinal strain / GLS was recorded to be 11.5%, putting the patient at risk to develop heart failure even though LVEF seems to be normal. She will need to be monitored closely. MTDD
== END ==
LOC: M RAD 09:39
PROVIDERS: ATTEND Internal Medicine Medical Oncology
DX: I70.8 Atherosclerosis of other arteries (principal); C34.90 Malignant neoplasm of unspecified part of unspecified bronchus or lung
CPT/HCPCS: 78306; 93306; 93356; 93880; A9503

== ENCOUNTER 2019-07-26 15:06 | Emergency (ER) | payer OTHER ==
[~2019-07-26] VITALS: Ht 165.1 cm; Wt 64.5 kg
[~2019-07-26 15:06] MED LIST changes: +TRIA1CR80 TOP
[2019-07-26 15:10] VITALS: BP 145/106
--- NOTE | 2019-07-26 18:17 | REP ---
CT brain without contrast: History: Altered mental status. There is a history of small cell lung carcinoma. Comparison MRI study of the brain is from June 26, 2019. 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 No bony calvarial lesion is appreciated. Visualized paranasal sinuses are clear. There is mild vascular calcification in the distal internal carotid arteries. The known right lateral basal ganglia lesion is again seen, although it is more conspicuous by MRI scanning. It appears to be unchanged. There is periventricular and subcortical white matter low density consistent with small vessel atherosclerotic changes. No other intracranial mass lesion is visible on unenhanced CT study. There is no evidence of intracranial hemorrhage or acute infarction. Impression: Small mass in the right lateral basal ganglia again seen unchanged from recent MRI study. Small vessel changes. No evidence of hemorrhage, new mass or infarct. Electronically Signed by Ozzie Walls MD 07/26/2019 07:18 P
== END 2019-07-26 16:15 | disposition home or self-care (01) ==
LOC: EDBD 15:06 → M ED 15:06
DX: F23 Brief psychotic disorder (principal); C34.90 Malignant neoplasm of unspecified part of unspecified bronchus or lung; J44.9 Chronic obstructive pulmonary disease, unspecified; K73.9 Chronic hepatitis, unspecified; Z87.891 Personal history of nicotine dependence

== ENCOUNTER 2019-08-06 12:05 | Emergency (ER) | payer OTHER ==
[~2019-08-06] VITALS: Ht 172.7 cm; Wt 65.0 kg
[~2019-08-06 12:05] MED LIST changes: +SODIUM CHLORIDE 0.9% INJ 10 ML SYR IV SCH
[2019-08-06 13:09] LABS: BASO # 0.1 10^3/uL (0.0-0.2); BASO % 0.4 % (0.0-1.0); HEMATOCRIT 37.3 % (36.0-47.0); HEMOGLOBIN 12.4 g/dl (12.0-15.5); LYMPH # 0.2 10^3/uL (1.5-5.0); LYMPH % 1.8 % (24.0-44.0); MEAN CORPUSCULAR HEMOGLOBIN 32.3 pg (27.0-33.0); MEAN CORPUSCULAR HGB CONC 33.2 g/dl (32.0-36.5); MEAN CORPUSCULAR VOLUME 97.1 fl (80.0-96.0); MONO % 8.3 % (0.0-5.0); NEUTROPHILS # 10.6 10^3/uL (1.5-8.5); NEUTROPHILS % 85.8 % (36.0-66.0); PLATELET COUNT, AUTOMATED 210 10^3/uL (150-450); RED BLOOD COUNT 3.84 10^6/uL (4.00-5.40); WHITE BLOOD COUNT 12.4 10^3/uL (4.0-10.0)
[2019-08-06 13:20] LABS: INR 0.99; PARTIAL THROMBOPLASTIN TIME 24.1 SECONDS (25.0-38.4); PROTHROMBIN TIME 12.8 SECONDS (11.8-14.0)
[2019-08-06 13:32] LABS: ALBUMIN 2.6 GM/DL (3.2-5.2); ALT/SGPT 17 U/L (12-78); BILIRUBIN,DIRECT < 0.1 MG/DL (0.0-0.2); BILIRUBIN,TOTAL 0.2 MG/DL (0.2-1.0); BLOOD UREA NITROGEN 23 MG/DL (7-18); CALCIUM LEVEL 8.3 MG/DL (8.5-10.1); CARBON DIOXIDE LEVEL 26 MEQ/L (21-32); CHLORIDE LEVEL 102 MEQ/L (98-107); CREATININE FOR GFR 0.73 MG/DL (0.55-1.30); GLOMERULAR FILTRATION RATE > 60.0 (>51); GLUCOSE, FASTING 89 MG/DL (70-100); POTASSIUM SERUM 4.1 MEQ/L (3.5-5.1); SODIUM LEVEL 135 MEQ/L (136-145); TOTAL PROTEIN 5.8 GM/DL (6.4-8.2)
[2019-08-06] MEDS ORDERED: ISOVUE-370 76% 100ML VIAL As Ordered ONE (13:44)
--- NOTE | 2019-08-06 14:31 | REP ---
CT BRAIN WITH AND WITHOUT CONTRAST: CT brain performed prior to and following the intravenous administration of 100 mL of Isovue 370. Comparison is made with a prior CT of 07/26/2019 as well as MRI 06/26/2019. Once again, there is a peripheral enhancing lesion in the right subinsular region with mild associated edema. There is no definite change when compared to prior studies. No new lesion is seen. There is no acute hemorrhage. There is no midline shift. There are chronic periventricular small vessel ischemic changes unchanged. There is no extra-axial fluid collection. IMPRESSION: No definite change in the enhancing lesion in the right subinsular region with mild associated edema. No new enhancing lesion is seen. There is no acute intracranial hemorrhage, midline shift, or herniation. Electronically Signed by Albert Singer MD 08/06/2019 03:22 P
--- NOTE | 2019-08-06 14:35 | REP ---
CT CHEST WITH IV CONTRAST: TECHNIQUE: Axial contrast enhanced images from the thoracic inlet to the upper abdomen using 100 mL Isovue 370 intravenous contrast material with multiplanar reformations. COMPARISON: 05/24/2019 as well as other prior exams. There is a new left hilar mass. This measures approximately 5.2 x 6.0 x 5.8 cm. There are internal areas of cavitation. There are underling diffuse interstitial fibrotic changes bilaterally in the lungs with upper lobe emphysematous change. No significantly enlarged lymph nodes are seen in the axillary regions or mediastinum. The heart is normal in size. There is no pleural or pericardial effusion. Subcentimeter cyst is seen in the left lobe of the liver anteriorly. There are degenerative changes of the spine with no definite bone lesion. IMPRESSION: New cavitating mass left hilum, maximum diameter 6 cm. No other new findings. Electronically Signed by Albert Singer MD 08/06/2019 03:22 P
[2019-08-06 14:40] VITALS: BP 165/100
--- NOTE | 2019-08-08 09:46 | ED PDOC ---
Post-Departure Follow-Up tierney gramajo and meli faxed formal report of ct chest for fu Vinay Cox MD Aug 08, 2019 09:46
== END 2019-08-06 14:45 | disposition home or self-care (01) ==
LOC: M ED 12:05
DX: R91.8 Other nonspecific abnormal finding of lung field (principal); Z85.118 Personal history of other malignant neoplasm of bronchus and lung; B19.20 Unspecified viral hepatitis C without hepatic coma; J44.9 Chronic obstructive pulmonary disease, unspecified; Z79.899 Other long term (current) drug therapy; Z79.52 Long term (current) use of systemic steroids
CPT/HCPCS: 70470; 71260; 80048; 80076; 82140; 85025; 85610; 85730; 99283; J1642; Q9967

== ENCOUNTER → 2019-08-17 | Outpatient (CLI) | payer OTHER ==
[~2019-08-17] MED LIST changes: +ATIV1TAB10 PO; +ISOVUE-370 76% 100ML VIAL As Ordered ONE; -SODIUM CHLORIDE 0.9% INJ 10 ML SYR IV SCH
--- NOTE | 2019-08-17 12:08 | REP ---
SOFT-TISSUE CT STUDY OF THE NECK WITH IV CONTRAST: HISTORY: Small cell lung carcinoma. Head swelling. Rule out SVC syndrome or cervical lymphadenopathy. Rule out metastasis. Skeletal pain. Comparison CT chest study is from August 06, 2019. CT CONTRAST DOSE: 100 mL of intravenous Isovue [address] FINDINGS: There is a right-sided Ykjiec-H-Bqry catheter noted in place with its course entering the right internal jugular vein and its tip coursing into the superior vena cava. A left arm vein was utilized for the contrast injection and there are no significant collateral veins opacified. The brachiocephalic vein is patent. No superior mediastinal mass is appreciated. Aortic arch and great vessel origins are unremarkable. No vascular abnormality is noted in the neck apart from some vascular calcification in the carotid bifurcations bilaterally. There is no evidence of neck mass or adenopathy. Submandibular and parotid glands are normal and symmetric. No epiglottic, glottic or subglottic airway lesion is seen. Thyroid lobes are symmetric. No significant soft tissue swelling is seen. No abnormal fluid collection noted. Bone window settings show no bony destructive lesion. IMPRESSION: No evidence of neck mass or adenopathy. No evidence of vascular occlusion. A right-sided Iekxxa-N-Omfl catheter. Electronically Signed by Ozzie Walls MD 08/17/2019 12:57 P
--- NOTE | 2019-08-17 14:56 | REP ---
REASON FOR EXAM: Followup. COMPARISON EXAM: 06/29/2019 After the intravenous administration of 21.3 mCi of technetium 99m MDP, a total body bone scan was obtained. There is no change from the prior exam. Once again, degenerative-type uptake patterns are again seen in the hips, shoulders, knees, ankles, and minimally in the feet, status quo. There are potentially two foci of increased radionuclide accumulation seen in the lumbar spine pedicle region of L3 and L5, but the finding is extremely subtle and cannot be confirmed definitively on the small field of view magnified images of that same region. IMPRESSION: There is no compelling evidence for metastatic disease and no significant change from the prior exam with the exception of subtle potential focal areas of increased radionuclide accumulation seen in the lumbar spine region. I will reiterate that the finding is subtle and inconclusive and will recommend followup with MRI for comparison. Electronically Signed by Taj Reyes DO 08/17/2019 04:16 P
== END ==
LOC: M RAD 10:32
PROVIDERS: ATTEND Internal Medicine Medical Oncology
DX: C34.90 Malignant neoplasm of unspecified part of unspecified bronchus or lung (principal); R22.1 Localized swelling, mass and lump, neck
CPT/HCPCS: 70491; 78306; A9503; Q9967

== ENCOUNTER → 2019-09-20 | Outpatient (CLI) | payer OTHER ==
--- NOTE | 2019-09-20 13:52 | REPVR ---
PROCEDURE INFORMATION: Exam: CT Maxillofacial With Contrast Exam date and time: 09/20/2019 1:21 PM Age: 59 years old Clinical indication: Condition or disease; Cancer; Other: Lung; Mass, lump, or swelling; Location not specified; Additional info: Face swelling, lung CA, R/O port thrombus, R/O svc MA; CT 1st TECHNIQUE: Imaging protocol: Computed tomography images of the face with intravenous contrast. Radiation optimization: All CT scans at this facility use at least one of these dose optimization techniques: automated exposure control; mA and/or kV adjustment per patient size (includes targeted exams where dose is matched to clinical indication); or iterative reconstruction. Contrast material: Isovue 370; Contrast volume: 75 ml; Contrast route: IV; COMPARISON: CT Head W/O FOLL BY WITH CONTR 08/06/2019 1:40:33 PM FINDINGS: Orbits: Orbits are normal. Globes are unremarkable. Bones/joints: Leftward cartilaginous nasal septal deviation. Sinuses: Severe mucosal thickening of the diminutive right sphenoid sinus, near completely filling the lumen. Click incidental sinus 2 Brain: Interval significant enlargement of the previously demonstrated right posterior subinsular lesion, now demonstrating mild peripheral marginal enhancement, maximal dimensions of approximately 2.5 x 4.3 x 3.0 cm (series 204, image 40; series 201, image 48; series 206, image 22). Similar marginally enhancing lesion right anterior frontal lobe white matter anterior superior to the temporal horn measuring 17.5 x 13 0.0 x 14.6 mm (series 206, image 28; series 204, image 27; series 201, image 55). Vasculature: No evidence of upper cervical lower facial venous thrombosis. Bilateral carotid atherosclerotic calcifications. Soft tissues: No specific facial soft tissue abnormality identified. IMPRESSION: 1. Interval significant enlargement previously demonstrated right posterior subinsular lesion, with new marginally enhancing lesion right anterior frontal lobe white matter. A metastatic disease not excluded. MRI of the brain recommended for further evaluation. 2. No specific facial soft tissue abnormality identified. Electronically signed by: Rodney Justice On 09/20/2019 13:52:29 PM
--- NOTE | 2019-09-20 17:34 | REP ---
REASON: If possible, assess the [id number]. Ultrasonography cannot accurately asses the patency of a catheter. The images provided show no evidence of thrombosis within the right jugular, subclavian, or axillary veins. A specular reflection was seen within the subclavian vein, consistent with a previously placed Eqjegl-f-Mdcv catheter. Electronically Signed by Taj Reyes DO 09/21/2019 11:13 A
== END ==
LOC: M RAD 12:59
PROVIDERS: ATTEND Internal Medicine Medical Oncology
DX: R22.0 Localized swelling, mass and lump, head (principal); J34.2 Deviated nasal septum; J32.3 Chronic sphenoidal sinusitis; G93.89 Other specified disorders of brain; C34.90 Malignant neoplasm of unspecified part of unspecified bronchus or lung
CPT/HCPCS: 70487; 93971; Q9967